=== PATIENT | female | born 1980 | race Caucasian/White ===

== ENCOUNTER 2019-01-25 10:16 | Emergency (ER) | payer OTHER, MEDICAID, SELFPAY ==
[2019-01-25 10:24] VITALS: BP 120/82; PULSE 77; RESP 18; TEMP 36.7; O2SAT 99; BMI 41.7
--- NOTE | 2019-01-25 11:05 | DI.US.S_ITS ---
PROCEDURE: US PELVIC COMPLETE INDICATIONS: RLQ PAIN, H/O CYSTS TECHNIQUE: Real-time scanning was performed of the pelvic organs, with image documentation. Additional endovaginal scanning was necessary due to incomplete visualization of the adnexal and endometrial structures by transabdominal scanning. COMPARISON: None. FINDINGS: Transabdominal scanning: Limited scanning through the kidneys shows no hydronephrosis. No pathologic free abdominal or pelvic fluid. Endovaginal scanning: Uterus: Uterus is normal in size at 13.0 x 4.5 x 5.6 cm. The endometrium measures 7 mm in combined thickness. Ovaries: The ovaries are obscured by shadowing bowel gas, despite multiple attempts and patient repositioning. No gross adnexal abnormality is seen. IMPRESSION: Ovaries not well visualized sonographically as detailed above. If clinically warranted, a repeat pelvic ultrasound could be obtained after extended (greater than 12 hours) n.p.o. interval. Or at clinical discretion, MRI could be considered. Dictated by: Dalton De León M.D. on 01/25/2019 at 11:55 Approved by: Dalton De León M.D. on 01/25/2019 at 11:57
[2019-01-25 11:28] LABS: Add Manual Diff / Slide Review NO; Basophils Absolute Auto 100 /uL (0-100); Basophils Percent Auto 1.1 % (0-2); Eosinophils Absolute Auto 200 /uL (0-450); Eosinophils Percent Auto 3.2 % (2-4); Hematocrit 39.5 % (36-46); Lymphocytes Absolute Auto 1900 /uL (1100-4500); Lymphocytes Percent Auto 27.7 % (25-40); Mean Corpuscular HGB Conc 35.4 % (30-36); Mean Corpuscular Hemoglobin 30.5 PG (26-34); Mean Corpuscular Volume 86.1 fL (80-100); Monocytes Absolute Auto 500 /uL (0-900); Monocytes Percent Auto 7.5 % (3-14); Neutrophils Absolute Auto 4200 /uL (1500-7000); Neutrophils Percent Auto 60.5 % (50-75); Platelet Count 220 X10^3/uL (150-400); Red Blood Cell Count 4.59 X10^6/uL (4.0-5.2); Red Cell Distribution Width 12.4 % (11.6-14.8); White Blood Cell Count 6.9 X10^3/uL (4.5-11.0)
[2019-01-25 11:40] LABS: Alanine Aminotransferase 26 IU/L (9-52); Albumin 4.4 g/dL (3.5-5.0); Albumin Globulin Ratio 1.5 (1.0-2.8); Alkaline Phosphatase 55 U/L (38-126); Aspartate Aminotransferase 23 IU/L (14-36); BUN Creatinine Ratio 13.8 (6-22); Bilirubin Total 0.2 mg/dL (0.2-1.3); Blood Urea Nitrogen 11 mg/dL (7-17); Calcium 9.6 mg/dL (8.4-10.2); Carbon Dioxide 26 mmol/L (22-32); Chloride 105 mmol/L (98-107); Estimated Glomerular Filt Rate > 60.0 mL/min (>60); Glucose 98 mg/dL (70-100); HEMOLYSIS < 15 (0-50); Potassium 4.1 mmol/L (3.4-5.1); Sodium 141 mmol/L (137-145); Total Protein 7.4 g/dL (6.3-8.2)
--- NOTE | 2019-01-25 11:46 | ED_ITS ---
HPI - Abdominal Pain General Chief Complaint: Abdominal Pain Stated Complaint: Lower Pelvic Pain Rt side Time Seen by Provider: 01/25/19 10:20 Source: patient Mode of arrival: ambulatory Limitations: no limitations History of Present Illness HPI narrative: 38-year-old female nonsmoker with history of ovarian cysts p resents to the emergency department for evaluation of sudden onset right lower quadrant. She states it has been rather consistent since its onset and is worse with motion and improves with rest. She denies any radiation of her pain or so she had symptoms such as fever, chills or nausea or. She has had a normal appetite and denies any vaginal bleeding or discharge. She denies dysuria, frequency or urgency. Her last menstrual cycle ended 4 days ago and was normal for her MD complaint: abdominal pain Onset (ago): hour(s) Pain Consistency: constant Location: RLQ Severity: moderate Quality: stabbing Radiation: none Migration to: no migration Relieving factors: rest Exacerbating factors: movement Associated symptoms: denies other symptoms Related Data Home Medications Medication Instructions Recorded Confirmed bismuth subsalicylate #0 12/07/17 [Pepto-Bismol Max St] Previous Rx's Medication Instructions Recorded ketorolac 10 mg PO Q6H PRN #14 tab 01/25/19 Allergies Allergy/AdvReac Type Severity Reaction Status Date / Time naproxen [From NAPROSYN] Allergy Severe anaphylactic Verified 01/25/19 10:28 - PT STATES MOTRIN IS OK olive oil [OLIVE OIL] Allergy Unknown Verified 01/25/19 10:28 Sulfa (Sulfonamide Allergy Unknown Verified 01/25/19 10:28 Antibiotics) [SULFA (SULFONAMIDE ANTIBIOTICS)] Review of Systems Constitutional Denies chills, Denies fever(s), Denies lethargy and Denies weakness Eyes Denies change in vision, Denies eye discharge, Denies irritation and Denies loss of vision ENT Ears, Nose, Mouth, and Throat: Denies change in voice, Denies neck pain and Denies sore throat Cardiovascular Denies chest pain, Denies irregular heart rhythm, Denies lightheadedness, Denies palpitations, Denies dyspnea, Denies dyspnea on exertion and Denies orthopnea Respiratory Denies cough, Denies dyspnea, Denies dyspnea on exertion and Denies wheezing Gastrointestinal Gastrointestinal: Denies abdominal pain, Denies change in bowel habits, Denies diarrhea, Denies nausea and Denies vomiting Genitourinary Denies hematuria, Reports pelvic pain, Denies flank pain, Denies urinary incontinence and Denies urinary urgency Musculoskeletal Denies neck pain Integumentary/Breasts Denies pruritus, Denies erythema, Denies rash and Denies wounds Neurologic Denies confusion, Denies loss of vision and Denies weakness Psychiatric Denies anxiety, Denies confusion, Denies depression, Denies homicidal ideation and Denies suicidal ideation Endocrine Denies palpitations Hematologic/Lymphatic Denies easy bruising Allergic/Immunologic Denies wheezing PFSH Social History Smoking Status: Current every day smoker Social History Smoking Status: Current every day smoker Exam Narrative Exam Narrative: GENERAL: 38-year-old female, appears a bit uncomfortable, rub keyur her right lower quadrant HEAD: Atraumatic. Normocephalic. No temporal or scalp tenderness. EYES: Pupils equal round and reactive. Extraocular motions intact. No scleral icterus. No injection or drainage. ENT: Nose without bleeding, purulent drainage or septal hematoma. Throat without erythema, tonsillar hypertrophy or exudate. Uvula midline. Airway patent. NECK: Trachea midline. No JVD or lymphadenopathy. Supple, nontender, no meningeal signs. CARDIOVASCULAR: Regular rate and rhythm without murmurs, gallops, or rubs. RESPIRATORY: Clear to auscultation. Breath sounds equal bilaterally. No wheezes, rales, or rhonchi. GASTROINTESTINAL: Abdomen soft, mild RLQ tenderness, nondistended. No hepato- splenomegaly, or palpable masses. No guarding. PELVIC: very minimal clearish yellow discharge from closed cervical os. No pain with cultures, no pain on bimanual. Performed with female nursing fire lieutenant at the bedside and patient's verbal permission EXTREMITIES: No clubbing, cyanosis, or edema. No joint tenderness, effusion, or edema noted. BACK: Nontender without deformity or crepitance. No flank tenderness. NEURO: AOx3. SKIN: No rash or erythema. Initial Vital Signs Initial Vital Signs: Vital Signs Temperature 98.0 F 01/25/19 10:24 Pulse Rate 77 01/25/19 10:24 Respiratory Rate 18 01/25/19 10:24 Blood Pressure 120/82 04/26/19 10:24 Pulse Oximetry 99 04/26/19 10:24 Course Orders Ordered: ED Orders 01/25/19 11:05 US pelvic complete Stat 01/25/19 11:18 CBC [Complete Blood Count AUTO DIFF] Stat CMP [Comprehensive Metabolic Panel] Stat 01/25/19 11:48 CT kidney ureter bladder (KUB) Stat Vital Signs - 8 hr 01/25/19 10:24 01/25/19 12:16 01/25/19 13:27 Temperature 98.0 F Pulse Rate 77 66 73 Respiratory Rate 18 18 18 Blood Pressure 120/82 Blood Pressure [Right Arm] 110/73 123/76 Pulse Oximetry 99 100 99 MDM - Abdominal Pain Differential Diagnosis Differential diagnosis: Likely abdominal pain, acute appendicitis, calculus of kidney and small bowel obstruction Medical Records Attestation: I reviewed the patient's medical records. Lab Data Attestation: I reviewed the patient's lab results. Result diagrams: 01/25/19 11:18 01/25/19 11:18 Lab Results 01/25/19 01/25/19 Range/Units 11:18 11:18 WBC 6.9 (4.5-11.0) X10^3/uL RBC 4.59 (4.0-5.2) X10^6/uL Hgb 14.0 (12.0-16.0) g/dL Hct 39.5 (36-46) % MCV 86.1 (80-100) fL MCH 30.5 (26-34) PG MCHC 35.4 (30-36) % RDW 12.4 (11.6-14.8) % Plt Count 220 (150-400) X10^3/uL Neut % (Auto) 60.5 (50-75) % Lymph % (Auto) 27.7 (25-40) % [place] % (Auto) 7.5 (3-14) % Eos % (Auto) 3.2 (2-4) % Baso % (Auto) 1.1 (0-2) % Neut # (Auto) 4200 (0052-3407) /uL Lymph # (Auto) 1900 (7130-5842) /uL [place] # (Auto) 500 (0-900) /uL Eos # (Auto) 200 (0-450) /uL Baso # (Auto) 100 (0-100) /uL Sodium 141 (137-145) mmol/L Potassium 4.1 (3.4-5.1) mmol/L Chloride 105 (98-107) mmol/L Carbon Dioxide 26 (22-32) mmol/L BUN 11 (7-17) mg/dL Creatinine 0.80 (0.52-1.04) mg/dL Estimated GFR > 60.0 (>60) mL/min BUN/Creatinine Ratio 13.8 (6-22) Glucose 98 (70-100) mg/dL Calcium 9.6 (8.4-10.2) mg/dL Total Bilirubin 0.2 (0.2-1.3) mg/dL AST 23 (14-36) IU/L ALT 26 (9-52) IU/L Alkaline Phosphatase 55 (38-126) U/L Total Protein 7.4 (6.3-8.2) g/dL Albumin 4.4 (3.5-5.0) g/dL Globulin 3.0 (1.7-4.1) g/dL Albumin/Globulin Ratio 1.5 (1.0-2.8) Point of care testing: Point of Care Testing Test Results Negative Urine Dip Bedside Urine Glucose Negative Bedside Urine Bilirubin - Negative Bedside Urine Ketone - Negative Urine Specific [place] 1.020 Bedside Urine Occult Blood - Negative Bedside Urine pH 6.5 Bedside Urine Protein - Negative Bedside Urine Urobilinogen - Negative Bedside Urine Nitrite - Negative Bedside Urine Leukocytes - Negative Esterase Imaging Data US - abdomen: Radiologist's impression: [address] [address] Ultrasound Report Signed Patient: Elva Mcdonald LMR#: [id number] : 1980Acct:[id number] Age/Sex: 38 / FDate of Service: 01/25/19 Loc: ED Accession Number: [id number] Procedure: US pelvic complete Ordering Provider: Ladarius Lu D.O. PROCEDURE: US PELVIC COMPLETE INDICATIONS: RLQ PAIN, H/O CYSTS TECHNIQUE: Real-time scanning was performed of the pelvic organs, with image documentation. Additional endovaginal scanning was necessary due to incomplete visualization of the adnexal and endometrial structures by transabdominal scanning. COMPARISON: None. FINDINGS: Transabdominal scanning: Limited scanning through the kidneys shows no hydronephrosis. No pathologic free abdominal or pelvic fluid. Endovaginal scanning: Uterus: Uterus is normal in size at 13.0 x 4.5 x 5.6 cm. The endometrium measures 7 mm in combined thickness. Ovaries: The ovaries are obscured by shadowing bowel gas, despite multiple attempts and patient repositioning. No gross adnexal abnormality is seen. IMPRESSION: Ovaries not well visualized sonographically as detailed above. If clinically warranted, a repeat pelvic ultrasound could be obtained after extended (greater than 12 hours) n.p.o. interval. Or at clinical discretion, MRI could be considered. Dictated by: Dalton De León M.D. on 01/25/2019 at 11:55 Approved by: Dalton De León M.D. on 01/25/2019 at 11:57 CT scan - abdomen: Radiologist's impression: [address] [address] [address] Scan Report Signed Patient: lEva Mcdonald LMR#: [id number] : 1980Acct:[id number] Age/Sex: 38 / FDate of Service: 01/25/19 Loc: ED Accession Number: [id number] Procedure: CT kidney ureter bladder (KUB) Ordering Provider: Ladarius Lu D.O. PROCEDURE: CT KIDNEY URETER BLADDER (KUB) INDICATIONS: severe RLQ pain, sudden onset TECHNIQUE: Noncontrast 5 mm thick sections acquired from the diaphragms to the symphysis. 5 mm thick coronal and sagittal reformats were then performed. For radiation dose reduction, the following was used: automated exposure control, adjustment of mA and/or kV according to patient size. COMPARISON: None. FINDINGS: Image quality: Excellent. Lung bases: Lung bases are clear. Heart size is normal. Urinary system: Both kidneys are normal in size. No kidney stones. No hydronephrosis or perinephric fat stranding. Both ureters appear non-dilated throughout their expected courses. Bladder wall thickness is normal; no calcified bladder stones. Other solid organs: Liver is normal in size there is fatty infiltration throughout the liver. Gallbladder appears normal. Pancreas is normal in contours. Spleen is normal in size. No adrenal nodules. Peritoneum and bowel: Unenhanced bowel loops demonstrate normal wall thickness and caliber. No free fluid or air. Nodes and vessels: No retroperitoneal or mesenteric adenopathy by size criteria. Aorta and inferior vena cava are normal in caliber. Abdominal wall: No ventral hernias. Pelvis: No free pelvic fluid. No inguinal hernias or adenopathy. A normal or abnormal appendix is not identified at the right lower quadrant but no secondary CT evidence of acute appendicitis is found. Bones: No suspicious bony lesions. No vertebral body compression fractures. IMPRESSION: Source of right lower quadrant pain is not identified. A normal or abnormal appendix is not found but there is no secondary CT evidence of acute appendicitis. No adnexal pathology seen, no urinary tract stones found. Fatty infiltration throughout the liver, no suspicion for acute cholecystitis by this CT. Dictated by: Epifanio Bennett M.D. on 01/25/2019 at 12:30 Approved by: Epifanio Bennett M.D. on 01/25/2019 at 12:31 [facility] Narrative Medical decision making narrative: Multiple etiologies for patient's symptoms considered including: [Right ovarian torsion versus appendicitis versus bowel obstruction versus kidney stone versus PID] Pain sudden in onset, without radiation, fever, N/V, or elevated WBCs and without findings on imaging to suspect appendicitis. PID considered, but very unremarkable pelvic exam. Kidney stone considered, but thought unlikely given no findings on CT or urine. Findings and discharge diagnosis discussed with patient/family followed by verbalization of understanding Return precautions discussed with patient/family whom verbalize understanding. Discharge Plan Departure Patient Disposition: Home Clinical Impression: Abdominal pain, acute, right lower quadrant Discharge Date/Time: 01/25/19 14:13 Instructions: DI for Pelvic Pain Activity Restrictions/Additional Instructions: *You have been diagnosed with [Right Pelvic pain, likely ovarian cyst, but appendicitis and other diagnoses were considered] *What to do: *Take medications as directed: Your prescription has been electronically transmitted to *Follow up with your primary care provider on February 04 as planned *Return to ER if you should have any new, worsening or concerning symptoms, such as [worsening pain, fever over 101 F, persistent vomiting, or other bothersome symptoms ] Prescriptions: New ketorolac 10 mg tablet 10 mg PO Q6H PRN (Reason: pain) Qty: 14 RF: 0 No Action bismuth subsalicylate [Pepto-Bismol Max St] 525 MG/15 ML suspension Qty: 0 RF: 0
[2019-01-25 12:16] VITALS: BP 110/73; PULSE 66; RESP 18; O2SAT 100
[2019-01-25 13:27] VITALS: BP 123/76; PULSE 73; RESP 18; O2SAT 99
--- NOTE | 2019-01-25 14:00 | PC.NURSE ---
Pelvic exam, cultures sent
== END 2019-01-25 14:13 | disposition home or self-care (01) ==
PROVIDERS: Emergency Provider Emergency Medicine
DX: R10.31 Right lower quadrant pain (principal)
CPT/HCPCS: 36415; 74176; 76830; 76856; 80053; 81003; 81025; 85025; 99283; 99284

== ENCOUNTER 2019-09-25 21:55 | Emergency (ER) | payer OTHER, MEDICAID, SELFPAY ==
[2019-09-25 22:01] VITALS: BP 118/75; PULSE 65; RESP 16; TEMP 36.6; O2SAT 97
--- NOTE | 2019-09-25 22:02 | DI.RAD.S_ITS ---
PROCEDURE: XR WRIST RT MIN 3V INDICATIONS: fall onto outstretched rt hand, wrist pain TECHNIQUE: 5 views of the wrist were acquired. COMPARISON: None. FINDINGS: Bones: No fractures or dislocations. No suspicious bony lesions. Scaphoid view: No trauma found. Soft tissues: No suspicious soft tissue calcifications. IMPRESSION: No trauma found. Dictated by: Epifanio Bennett M.D. on 09/26/2019 at 8:18 Approved by: Epifanio Bennett M.D. on 09/26/2019 at 8:19
--- NOTE | 2019-09-25 22:21 | ED_ITS ---
HPI - Extremity Injury (Upper) General Chief Complaint: Extremity Injury, Upper Stated Complaint: thinks she sprained her right wrist Time Seen by Provider: 09/25/19 22:15 Source: patient Mode of arrival: Ambulatory Limitations: no limitations History of Present Illness HPI narrative: 31-year-old female smoker noncontributory medical history presents with a chief complaint of a fall with pain in her right wrist. The patient works at a [employer] and states that she has had some pain in her right wrist for the past few weeks to months but states it became significantly worse after tonight's fall. The patient was exiting the shower and fell and then twisted her right wrist. The majority of her pain is on the volar surface of her distal wrist. Her pain is worse with motion and improves with rest. She denies any significant numbness, tingling or weakness. MD complaint: injury to: right Onset (ago): hour(s) Other Extremity Injury: Right: hand and wrist Other injuries: none Handedness: right Place: home Severity: moderate Relieving factors: immobilization and rest Exacerbating factors: movement of extremity Context: fall and direct blow Associated symptoms: denies other symptoms Treatments prior to arrival: cold therapy Related Data Home Medications Medication Instructions Recorded Confirmed bismuth subsalicylate #0 12/07/17 [Pepto-Bismol Max St] Previous Rx's Medication Instructions Recorded ketorolac 10 mg PO Q6H PRN #14 tab 01/25/19 Allergies Allergy/AdvReac Type Severity Reaction Status Date / Time naproxen [From NAPROSYN] Allergy Severe anaphylactic Verified 01/25/19 10:28 - PT STATES MOTRIN IS OK olive oil [OLIVE OIL] Allergy Unknown Verified 01/25/19 10:28 Sulfa (Sulfonamide Allergy Unknown Verified 01/25/19 10:28 Antibiotics) [SULFA (SULFONAMIDE ANTIBIOTICS)] Review of Systems Constitutional Constitutional: Denies chills, Denies fatigue, Denies fever(s), Denies frequent falls, Denies lethargy and Denies weakness Eyes Eyes: Denies change in vision, Denies eye discharge, Denies irritation and Denies loss of vision ENT Ears, Nose, Mouth, and Throat: Denies change in voice, Denies dizziness, Denies neck pain, Denies sore throat and Denies throat swelling Cardiovascular Cardiovascular: Denies chest pain, Denies irregular heart rhythm, Denies lightheadedness, Denies palpitations, Denies dyspnea, Denies dyspnea on exertion and Denies orthopnea Respiratory Respiratory: Denies cough, Denies dyspnea, Denies dyspnea on exertion and Denies wheezing Gastrointestinal Gastrointestinal: Denies abdominal pain, Denies change in bowel habits, Denies diarrhea, Denies nausea and Denies vomiting Genitourinary Genitourinary: Denies hematuria, Denies flank pain, Denies urinary incontinence and Denies urinary urgency Musculoskeletal Musculoskeletal: Denies back pain, Reports limited range of motion, Denies muscle weakness, Denies neck pain, Denies numbness and Denies tingling Integumentary/Breasts Skin/Breast: Denies pruritus, Denies erythema, Denies rash and Denies wounds Neurologic Neurologic: Denies behavioral changes, Denies confusion, Denies dizziness, Denies frequent falls, Denies loss of vision, Denies numbness, Denies tingling and Denies weakness Psychiatric Psychiatric: Denies anxiety, Denies behavioral changes, Denies confusion, Denies depression, Denies homicidal ideation and Denies suicidal ideation Endocrine Endocrine: Denies fatigue, Denies flushing and Denies palpitations Hematologic/Lymphatic Hematologic/Lymphatic: Denies easy bruising Allergic/Immunologic Allergic/Immunologic: Denies urticaria, Denies throat swelling and Denies wheezing Patient History Social History Smoking Status: Current every day smoker Smoking Status: Current every day smoker alcohol intake frequency: a few times a month Substance Use Type: does not use Exam Narrative Exam Narrative: GEN: AOx3 and in mild distress EYES: Pupils are equal, round, and reactive to light and accommodation. Extraoccular muscles are intact bilaterally. There is no subconjunctival hemorrhage or exudate. CHEST: Lungs are clear to auscultation bilaterally and free of wheezes, rales, or rhonchi. Heart rate is regular rhythm, there are no murmurs, clicks, rubs, or gallops. There is no chest wall tenderness. ABD: Abdomen is soft and nontender. There is no guarding or rebound. Bowel sounds are normal in all 4 quadrants. There is no mass or organomegaly. EXT: Full ROM of R wrist with some pain on dorsiflexion. No numbness or tingling. No pain in anatomic snuffbox or pain with axial loading of thumb. Reverse phalen's results in incrased pain in wrist but no numbness or tingling. SKIN: Warm, pink, and dry. No erythema or rash Initial Vital Signs Initial Vital Signs: Vital Signs Temperature 97.9 F 09/25/19 22:01 Pulse Rate 65 09/25/19 22:01 Respiratory Rate 16 09/25/19 22:01 Blood Pressure 118/75 09/25/19 22:01 Pulse Oximetry 97 09/25/19 22:01 Procedures Orthopedic Splinting/Casting Injury #1: Side: right Upper Extremity Immobilizer: thumb spica Post splinting neuro exam: intact Post splinting vascular exam: intact Placed by: Nursing Course Orders Ordered: ED Orders 09/25/19 22:02 XR wrist RT min 3V Stat Vital Signs Vital signs: Vital Signs - 8 hr 09/25/19 22:01 Temperature 97.9 F Pulse Rate 65 Respiratory Rate 16 Blood Pressure 118/75 Pulse Oximetry 97 MDM - Extremity Injury (Upper) Imaging Data Extremity x-ray #1: Attestation: I personally reviewed and interpreted this imaging study as follows: My Impression: R Wrist: No Fx Discharge Plan Departure Patient Disposition: Home Clinical Impression: Sprain and strain of wrist Discharge Date/Time: 09/25/19 22:40 Instructions: DI for Wrist Sprain Activity Restrictions/Additional Instructions: *You have been diagnosed with [acute right wrist sprain, possible early carpal tunnel syndrome as well] *What to do: *Take medications as directed *Follow up with your primary care provider in 2-3 days, call for an appointment. Let them know you were seen in the Emergency Department and that we ask that you be seen in follow up *Return to ER if you should have any new, worsening or concerning symptoms Radiographic study has been interpreted by an emergency physician. The official diagnosis by radiology will be performed within the next 24 hours and should there be any change in outcome we will notify you of how to proceed. Splint Care: Keep splint clean and dry. Elevated affected body part to decrease swelling. OK to use ice pack on the affected body part. Use for 15-20 minutes each time, for 5-6x per day. If you develop worsening pain, numbness, tingling, discoloration of the affected body part, loosen the splint by loosening the VIANY wrap, and either see your doctor for an urgent re-assessment, or return to the Emergency Department. Return to the Emergency Department for any new or worsening symptoms. Prescriptions: No Action bismuth subsalicylate [Pepto-Bismol Max St] 525 MG/15 ML suspension Qty: 0 RF: 0 ketorolac 10 mg tablet 10 mg PO Q6H PRN (Reason: pain) Qty: 14 RF: 0
== END 2019-09-25 22:40 | disposition home or self-care (01) ==
PROVIDERS: Emergency Provider Emergency Medicine
DX: J10.1 Influenza due to other identified influenza virus with other respiratory manifestations (principal)
CPT/HCPCS: 73110; 99282; 99283

== ENCOUNTER 2019-11-18 16:05 | Emergency (ER) | payer OTHER, MEDICAID, SELFPAY ==
[2019-11-18 16:24] VITALS: BP 123/65; PULSE 75; RESP 16; TEMP 36.4; O2SAT 100; BMI 36.7
--- NOTE | 2019-11-18 20:06 | ED.UPPEXIN ---
HPI - Extremity Injury (Upper) General Chief Complaint: Extremity Injury, Upper Stated Complaint: RIGHT ARM AND WRIST SHOOTING PAIN NUMB FINGERS History of Present Illness HPI narrative: This patient left without treatment. She was not evaluated, interviewed or examined. She left before without treatment. Related Data Home Medications Medication Instructions Recorded Confirmed albuterol sulfate [ProAir HFA] 2 puff INHALATION Q4H PRN 11/18/19 11/18/19 fluoxetine 10 mg PO DAILY 11/18/19 11/18/19 Allergies Allergy/AdvReac Type Severity Reaction Status Date / Time naproxen [From NAPROSYN] Allergy Severe anaphylactic Verified 11/18/19 16:31 - PT STATES MOTRIN IS OK olive oil [OLIVE OIL] Allergy Unknown Verified 11/18/19 16:31 Sulfa (Sulfonamide Allergy Unknown Verified 11/18/19 16:31 Antibiotics) [SULFA (SULFONAMIDE ANTIBIOTICS)] Patient History Social History Smoking Status: Current every day smoker Smoking Status: Current every day smoker alcohol intake frequency: a few times a month Substance Use Type: does not use Exam Initial Vital Signs Initial Vital Signs: Vital Signs Temperature 97.6 F 11/18/19 16:24 Pulse Rate 75 11/18/19 16:24 Respiratory Rate 16 11/18/19 16:24 Blood Pressure 123/65 11/18/19 16:24 Pulse Oximetry 100 11/18/19 16:24 Course Vital Signs Vital signs: Vital Signs - 8 hr 11/18/19 16:24 Temperature 97.6 F Pulse Rate 75 Respiratory Rate 16 Blood Pressure 123/65 Pulse Oximetry 100 Discharge Plan Departure Patient Disposition: Left Without Being Seen Clinical Impression: Patient left without being seen Discharge Date/Time: 11/18/19 16:53
== END 2019-11-18 16:53 | disposition left against medical advice (07) ==
PROVIDERS: Emergency Provider Emergency Medicine; PCP Family Medicine
CPT/HCPCS: 99281

== ENCOUNTER 2019-12-17 21:57 | Emergency (ER) | payer OTHER, MEDICAID, SELFPAY ==
[2019-12-17 22:05] VITALS: BMI 42.9
[2019-12-17 22:09] VITALS: BP 143/76; PULSE 65; RESP 14; TEMP 37.1; O2SAT 98
--- NOTE | 2019-12-17 23:20 | ED.DENTAL ---
HPI - Dental/Oral General Chief complaint: Dental/Oral Stated complaint: wisdom tooth pain Time Seen by Provider: 12/17/19 23:20 Source: patient Mode of arrival: Ambulatory Limitations: no limitations History of Present Illness HPI Narrative: This is a 39-year-old female comes to the emergency department with complaint of wisdom tooth pain. Patient states on the right side upper and lower. She saw a dentist today who told her she needed to have all 4 of her wisdom teeth removed. She states she was referred to someone in [place] because no one on the [place] can do with this surgery because she is over 21. Patient states she has not had fevers. She has had some mild swelling for right cheek. She has not had any purulence discharge. She has not had any swelling of her oropharynx. She states that her cheek has not been red. She states she has tried Tylenol, ibuprofen, clove oil, and Vicodin without improvement. Patient states that they did not tell her that they noted any infection. Related Data Home Medications Medication Instructions Recorded Confirmed albuterol sulfate [ProAir HFA] 2 puff INHALATION Q4H PRN 11/18/19 11/18/19 fluoxetine 10 mg PO DAILY 11/18/19 11/18/19 Previous Rx's Medication Instructions Recorded oxycodone-acetaminophen [Percocet] 1 tab PO Q6H PRN #10 tab 12/17/19 Allergies Allergy/AdvReac Type Severity Reaction Status Date / Time naproxen [From NAPROSYN] Allergy Severe anaphylactic Verified 11/18/19 16:31 - PT STATES MOTRIN IS OK olive oil [OLIVE OIL] Allergy Unknown Verified 11/18/19 16:31 Sulfa (Sulfonamide Allergy Unknown Verified 11/18/19 16:31 Antibiotics) [SULFA (SULFONAMIDE ANTIBIOTICS)] Review of Systems Review of Systems ROS Unobtainable: All systems reviewed & are unremarkable except as noted in HPI and below Patient History Social History Smoking Status: Current every day smoker Smoking Status: Current every day smoker alcohol intake frequency: a few times a month Substance Use Type: does not use Exam Narrative Exam Narrative: GEN: well nourished, well appearing obese female, alert and oriented x 3, patient appears to be in moderate distress. She is standing and pacing around the room. HEENT: Atraumatic, pupils are equal round reactive to light, extraocular movements are intact, nares are clear, TMs are clear with no fluid, there is no conjunctival pallor. Throat is clear without any exudates, erythema, tonsillar enlargement or uvular deviation, patient appears to have normal dentition. No swelling appreciated of the right or left cheek. No erythema. HEART: Regular rate and rhythm without murmur, clicks, rubs. LUNGS:Lungs clear to auscultation, no wheezes, rales, crackles, chest moves symmetrically ABD:bowel sounds normal, soft, non-tender, no guarding, rebound, rigidity, no masses noted, no hepatosplenomegaly MSCL: Non-tender, no muscle atrophy, muscles strength 5/5 upper and lower extremities, full range of motion, normal gait NEURO:CN 2-12 intact, sensation normal SKIN: No rash, erythema or skin changes. Initial Vital Signs Initial Vital Signs: Vital Signs Temperature 98.7 F 12/17/19 22:09 Pulse Rate 65 12/17/19 22:09 Respiratory Rate 14 12/17/19 22:09 Blood Pressure 143/76 H 12/17/19 22:09 Pulse Oximetry 98 12/17/19 22:09 Course Orders Ordered: Discontinued Medications Ketorolac Tromethamine (Toradol) 30 mg IM NOW ONE Stop: 12/17/19 23:47 Last Admin: 12/17/19 23:52 Dose: 30 mg Documented by: STEFFI Oxycodone/Acetaminophen (Endocet 5/325 Prepack) 1 bottle MISC SEEINSTR ONE Stop: 12/17/19 23:46 Last Admin: 12/17/19 23:52 Dose: 1 bottle Documented by: STEFFI Vital Signs Vital signs: Vital Signs - 8 hr 12/17/19 22:09 Temperature 98.7 F Pulse Rate 65 Respiratory Rate 14 Blood Pressure [Left Arm] 143/76 H Pulse Oximetry 98 MDM - Dental/Oral MDM Narrative Medical decision making narrative: Patient comes to the emergency department states she had ibuprofen earlier. She has an anaphylaxis naproxen but takes ibuprofen without issue was given Toradol. Given referral for Dr. Oro who is [facility] may be a more local option available to her. Discharge Plan Departure Patient Disposition: Home Clinical Impression: Pain, dental Discharge Date/Time: 12/18/19 00:09 Instructions: DI for Dental Pain Activity Restrictions/Additional Instructions: Follow-up with the dental resources provided, you may also contact Dr. Oro to inquire if they are an option. Take medication as prescribed, this medication can make you sleepy do not drive, perform hazardous activities or make any major decisions while taking this medication. Prescription was sent to [facility] in [place]. You may continue take ibuprofen up to 800 mg every 8 hours with this medication. Return for fevers greater 100.4 F, worsening swelling, purulent discharge swelling of your throat, lips or tongue, redness or swelling of the face or other new or concerning symptoms. Prescriptions: New oxycodone-acetaminophen [Percocet] 5-325 mg tablet 1 tab PO Q6H PRN (Reason: pain) Qty: 10 RF: 0 No Action fluoxetine 10 mg capsule 10 mg PO DAILY RF: 0 albuterol sulfate [ProAir HFA] 90 mcg/actuation HFA aerosol inhaler 2 puff inhalation Q4H PRN (Reason: Shortness Of Breath Or Wheezing) RF: 0 Referrals: Dwayne Oro DMD [Physician] - Karolyn Monique [Primary Care Provider] -
[2019-12-17] MEDS: KETOROLAC 60 MG/2 ML VIAL 30 MG IM (23:52)
[2019-12-17] MEDS: OXYCODONE/APAP 5/325 PREPACK 1 BOTTLE MISC (23:52)
== END 2019-12-18 00:09 | disposition home or self-care (01) ==
PROVIDERS: Emergency Provider Emergency Medicine; PCP Family Medicine
DX: K08.89 Other specified disorders of teeth and supporting structures (principal)
CPT/HCPCS: 96372; 99283; J1885

== ENCOUNTER 2019-12-19 23:23 | Emergency (ER) | payer OTHER, MEDICAID, SELFPAY ==
[2019-12-19 23:31] VITALS: BP 136/93; PULSE 77; RESP 16; TEMP 36.4; O2SAT 98; BMI 42.9
[2019-12-20] MEDS: KETOROLAC 60 MG/2 ML VIAL 30 MG IV (00:11)
[2019-12-20] MEDS: AMPICILLIN/SULBACTAM 3 GM 3 GM in SODIUM CHLORIDE 0.9% 100 ML IV (00:13)
[2019-12-20] MEDS: methylPREDNISolone 125 MG/2 ML VIAL IV (00:13)
--- NOTE | 2019-12-20 00:20 | DI.CT.S_ITS ---
PROCEDURE: CT FACIAL BONES W CON INDICATIONS: infected lower mandible with right facial swelling TECHNIQUE: After the administration of intravenous contrast, 2.5 mm axial sections acquired from the mid-neck to the frontal sinuses, with coronal and sagittal reformats. For radiation dose reduction, the following was used: automated exposure control, adjustment of mA and/or kV according to patient size. COMPARISON: None. FINDINGS: Image quality: Excellent. Soft tissues: Mild inflammatory change in the right facial subcutaneous fat without abscess formation. No edema, masses, or fluid collections. Reactive adenopathy, right submandibular and anterior cervical region. Reactive adenopathy on the left, to a lesser extent. Vascular: Visualized vascular structures appear patent throughout. Bony vascular foramina and canals appear normal. Bones: Recent resection of posterior right upper molar. No evidence of adjacent osteomyelitis. No adjacent abscess. Facial bones appear intact, without fractures, erosions, or destruction. Visualized portions of the skull base and auditory canals also appear normal. Sinuses: Paranasal sinuses are aerated without fluid levels, mucosal thickening, or mucoceles. Mastoid air cells are aerated. IMPRESSION: 1. Mild inflammatory change in the right face subcutaneous tissues may indicate mild cellulitic change. No abscess cavity. Comment: Final report is concordant with preliminary interpretation provided by [facility]. Dictated by: Jose Martin Sinclair M.D. on 12/20/2019 at 7:40 Approved by: Jose Martin Sinclair M.D. on 12/20/2019 at 7:44
--- NOTE | 2019-12-20 00:54 | PC.NURSE ---
PT states right sided face swelling since last night and pain getting worse. Had oral surgery yesterday with top 2 wisdom teeth removed, has infection in left lower mouth. Was started on Clindamycin. Pt able to speak in full sentances with airway intact.
--- NOTE | 2019-12-20 01:28 | ED.DENTAL ---
HPI - Dental/Oral General Chief complaint: Dental/Oral Stated complaint: SWOLLEN LEFT CHEEK Time Seen by Provider: 12/19/19 23:40 Source: patient Mode of arrival: Family Vehicle Limitations: no limitations History of Present Illness HPI Narrative: The patient is a 39-year-old female who states that yesterday she had to wisdom teeth removed. Last night she developed severe pain and discomfort took 2 doses of her clindamycin. She had increased pain and woke up at 3:30 a.m. with her face swollen on the right side. Today the patient came into the emergency department and stated that her right face was even more swollen despite taking the antibiotics. She denied any headache but she had pressure behind her right eye and discomfort in her right cheek. She denied any fever chills or sweats as well as any change in vision loss of vision or diplopia. She had no cough shortness of breath or chest pain. She had no nausea vomiting diarrhea change in bowel habits dysuria. She denies a history of diabetes mellitus hypertension and asthma. She does smoke cigarettes but does not drink alcohol. She has denies being stating her last menstrual period was 2 and half weeks ago. Related Data Home Medications Medication Instructions Recorded Confirmed albuterol sulfate [ProAir HFA] 2 puff INHALATION Q4H PRN 11/18/19 11/18/19 fluoxetine 10 mg PO DAILY 11/18/19 11/18/19 Previous Rx's Medication Instructions Recorded oxycodone-acetaminophen [Percocet] 1 tab PO Q6H PRN #10 tab 12/17/19 amoxicillin-pot clavulanate 1 tab PO Q12H #14 tab 12/20/19 [Augmentin] prednisone 40 mg PO DAILY #8 tab 12/20/19 tramadol 50 mg PO Q6H PRN #12 tab 12/20/19 Allergies Allergy/AdvReac Type Severity Reaction Status Date / Time naproxen [From NAPROSYN] Allergy Severe anaphylactic Verified 11/18/19 16:31 - PT STATES MOTRIN IS OK olive oil [OLIVE OIL] Allergy Unknown Verified 11/18/19 16:31 Sulfa (Sulfonamide Allergy Unknown Verified 11/18/19 16:31 Antibiotics) [SULFA (SULFONAMIDE ANTIBIOTICS)] Review of Systems Review of Systems Narrative: All review of systems were negative except for those mentioned in the history of present illness. Patient History Social History Smoking Status: Current every day smoker Smoking Status: Current every day smoker alcohol intake frequency: a few times a month Substance Use Type: does not use Exam Narrative Exam Narrative: PHYSICAL EXAM: CONSTITUTIONAL: Awake, Alert, Oriented, Coherent, Cooperative in NAD. Does not appear toxic or ill. HEAD: AT/NC, the right lateral face over her maxilla is diffusely tender and swollen. There is no mass or fluctuance appreciated. It appears that her face is just tremendously swollen. You EENT: PERRL, FROM of eyes, no discharge, no nystagmus No epistaxis or nasal drainage The patient has difficulty in opening her mouth. You can see a suture in the right upper posterior molar. Her mucosa is moist and pink there is no erythema or exudate in the posterior pharynx. NECK: Supple, no obvious JVD, Trachea is midline without stridor, no palpable LN . SPINE: No gross deformity, no palpable tenderness of the cervical, thoracic, lumbar or sacral spine. THORAX: No deformity, retractions, chest wall tenderness, subcutaneous air or crepitice. LUNGS: Clear with symmetrical breath sounds without respiratory distress HEART: Normal heart tones, regular rhythm and rate without murmur. ABDOMEN: Soft, non-tender, normal bowel sounds without guarding, rebound, rigidity or palpable mass EXTREMITIES: No edema, cyanosis, deformity or tenderness. SKIN: No rash petechia purpura bruising noted. NEURO: Awake, alert, oriented, conversive, cranial nerves II-XII are symmetrical and normal, moves all 4 extremities and is ambulatory Initial Vital Signs Initial Vital Signs: Vital Signs Temperature 97.6 F 12/19/19 23:31 Pulse Rate 77 12/19/19 23:31 Respiratory Rate 16 12/19/19 23:31 Blood Pressure 136/93 H 12/19/19 23:31 Pulse Oximetry 98 12/19/19 23:31 Course Course Course Narrative: 0120:CT of the patient's face remains pending. 0144: CT scan of the patient's face with contrast reveals subcutaneous stranding and inflammation involving the right aspect of the face without any evidence of an abscess. The patient will be discharged home placed on Augmentin 875 b.i.d. for 7 days and prednisone 40 mg per day for the next 3 days. She will be administered tramadol 50 mg Q 6 hours p.r.n. for severe pain and discomfort 12. Orders Ordered: ED Orders 12/20/19 00:20 CT facial bones w con Stat Discontinued Medications Ampicillin Sodium/Sulbactam (Sodium 3 gm/ Sodium Chloride) 100 mls @ 100 mls/hr IV NOW ONE Stop: 12/19/19 23:44 Last Infusion: 12/20/19 01:10 Dose: 0 mls/hr Documented by: Admin: 12/20/19 00:13 Dose: 100 mls/hr Documented by: LILLIAN Ketorolac Tromethamine (Toradol) 30 mg IV NOW ONE Stop: 12/20/19 00:00 Last Admin: 12/20/19 00:11 Dose: 30 mg Documented by: LILLIAN Methylprednisolone (Solu-Medrol 125 Mg Vial) 125 mg IV NOW ONE Stop: 12/19/19 23:55 Last Admin: 12/20/19 00:13 Dose: 125 mg Documented by: LILLIAN Vital Signs Vital signs: Vital Signs - 8 hr 12/19/19 23:31 12/20/19 01:29 Temperature 97.6 F 97.6 F Pulse Rate 77 72 Respiratory Rate 16 20 Blood Pressure 136/93 H Blood Pressure [Left Arm] 120/68 Pulse Oximetry 98 98 MDM - Dental/Oral Medical Records Attestation: I reviewed the patient's medical records. Lab Data Attestation: I reviewed the patient's lab results. Lab results narrative: No labs. Discharge Plan Departure Patient Disposition: Home Clinical Impression: Left facial swelling, Acute facial pain Discharge Date/Time: 12/20/19 01:53 Instructions: DI on Tooth Extraction, DI for Dental Pain Activity Restrictions/Additional Instructions: 1. Stop your clindamycin at this time and switch to Augmentin 875 mg twice a day. 2. Take the prednisone 40 mg per day for the next 4 days. 3. Continue to use your ibuprofen 600 mg every 6 hours for pain and discomfort. 4. For severe rescue pain use tramadol 50 mg every 6 hours for severe pain unrelieved by the other medications number 12 5. Follow-up with your dentist for re-evaluation in 48-72 hours. Prescriptions: New amoxicillin-pot clavulanate [Augmentin] 875-125 mg tablet 1 tab PO Q12H Qty: 14 RF: 0 prednisone 20 mg tablet 40 mg PO DAILY Qty: 8 RF: 0 tramadol 50 mg tablet 50 mg PO Q6H PRN (Reason: pain) Qty: 12 RF: 0 No Action fluoxetine 10 mg capsule 10 mg PO DAILY RF: 0 albuterol sulfate [ProAir HFA] 90 mcg/actuation HFA aerosol inhaler 2 puff inhalation Q4H PRN (Reason: Shortness Of Breath Or Wheezing) RF: 0 oxycodone-acetaminophen [Percocet] 5-325 mg tablet 1 tab PO Q6H PRN (Reason: pain) Qty: 10 RF: 0 Referrals: Karolyn Monique [Primary Care Provider] - ED Sign-out Cosign ED Attending Michael Attestation: I was immediately available in the department for consultation. This documentation has been reviewed and I agree with assessment and plan. Supervised by Tawanda Riggs MD
[2019-12-20 01:29] VITALS: BP 120/68; PULSE 72; RESP 20; TEMP 36.4; O2SAT 98
== END 2019-12-20 01:53 | disposition home or self-care (01) ==
PROVIDERS: Emergency Provider Emergency Medicine; PCP Family Medicine
DX: R22.0 Localized swelling, mass and lump, head (principal); R51 Headache; K08.89 Other specified disorders of teeth and supporting structures
CPT/HCPCS: 70487; 96365; 96375; 99284; J0295; J1885; J2930; Q9967

== ENCOUNTER 2021-04-02 21:25 | Emergency (ER) | payer OTHER, MEDICAID, SELFPAY ==
[2021-04-02 21:39] VITALS: BP 126/79; PULSE 81; RESP 16; TEMP 36.6; O2SAT 98; BMI 44.9
--- NOTE | 2021-04-02 22:44 | ED.EYEPROB ---
HPI - Eye Problem General Chief complaint: Eye Problems Stated complaint: visual changes Time Seen by Provider: 04/02/21 22:39 History of Present Illness HPI Narrative: 40-year-old female daily smoker with history of asthma presents with a week or so of dry itchy eyes with some watering and redness but complains that over the past day or to her eyes have become crusted shut in the morning and there appears to be in drainage. It happens in both eyes but right is worse than left. She has some visual change as she feels like she is looking through a film. She denies any pain, runny nose, sore throat or cough. She is otherwise well and free of complaint she does not were contacts Related Data Home Medications Medication Instructions Recorded Confirmed albuterol sulfate 90 mcg/actuation 2 puff INHALATION Q4H PRN 11/18/19 11/18/19 aerosol inhaler (ProAir HFA) fluoxetine 10 mg capsule 10 mg PO DAILY 11/18/19 11/18/19 Previous Rx's Medication Instructions Recorded oxycodone-acetaminophen 5 mg-325 1 tab PO Q6H PRN #10 tab 12/17/19 mg tablet (Percocet) amoxicillin 875 mg-potassium 1 tab PO Q12H #14 tab 12/20/19 clavulanate 125 mg tablet (Augmentin) prednisone 20 mg tablet 40 mg PO DAILY #8 tab 12/20/19 tramadol 50 mg tablet 50 mg PO Q6H PRN #12 tab 12/20/19 polymyxin B sulfate 10,000 1 drp EYE-BOTH Q3H #10 ml 04/02/21 unit-trimethoprim 1 mg/mL eye drops Allergies Allergy/AdvReac Type Severity Reaction Status Date / Time naproxen [From NAPROSYN] Allergy Severe anaphylactic Verified 11/18/19 16:31 - PT STATES MOTRIN IS OK olive oil [OLIVE OIL] Allergy Unknown Verified 11/18/19 16:31 Sulfa (Sulfonamide Allergy Unknown Verified 11/18/19 16:31 Antibiotics) [SULFA (SULFONAMIDE ANTIBIOTICS)] Review of Systems Review of Systems Narrative: GENERAL: Denies chills, fatigue, malaise, fever, sweats. HEENT: see HPI RESPIRATORY: Denies dyspnea, cough, wheezing, hemoptysis, sputum. CARDIOVASCULAR: Denies chest pain, palpitations, orthopnea, edema, GASTROINTESTINAL: Denies nausea, vomiting, abdominal pain, diarrhea, constipation, melena. : Denies dysuria, frequency, incontinence, hematuria, urinary retention. MUSCULOSKELETAL: denies weakness, joint pain, or bony pain SKIN: Denies rash, skin lesions, or other NEUROLOGIC: Denies weakness, headache, numbness, change in speech, confusion, seizures, incoordination. PSYCHIATRIC: No concerning psychosocial issues. 12 point review of systems is negative except for those stated above Patient History Social History Smoking Status: Current every day smoker Smoking Status: Current every day smoker alcohol intake frequency: a few times a month Substance Use Type: does not use Exam Narrative Exam Narrative: GEN: AOx3 and in mild distress EYES: Pupils are equal, round, and reactive to light and accommodation. Extraoccular muscles are intact bilaterally. Minimal injection in right greater than left, subtle hint of exudate CHEST: Lungs are clear to auscultation bilaterally and free of wheezes, rales, or rhonchi. Heart rate is regular rhythm, there are no murmurs, clicks, rubs, or gallops. There is no chest wall tenderness. ABD: Abdomen is soft and nontender. There is no guarding or rebound. Bowel sounds are normal in all 4 quadrants. There is no mass or organomegaly. EXT: Full painless ROM of all extremities with no loss of sensation or strength. SKIN: Warm, pink, and dry. No erythema or rash Initial Vital Signs Initial Vital Signs: Vital Signs Temperature 97.8 F 04/02/21 21:39 Pulse Rate 81 04/02/21 21:39 Respiratory Rate 16 04/02/21 21:39 Blood Pressure 126/79 04/02/21 21:39 Pulse Oximetry 98 04/02/21 21:39 Course Orders Ordered: Discontinued Medications Ofloxacin (Ofloxacin 0.3% Ophth 5 Ml) 1 drops EYE-BOTH NOW ONE Stop: 04/02/21 22:45 Last Admin: 04/02/21 23:56 Dose: Not Given Documented by: ALONDRA Vital Signs Vital signs: Vital Signs - 8 hr 04/02/21 21:39 04/02/21 23:02 Temperature 97.8 F Pulse Rate 81 77 Respiratory Rate 16 16 Blood Pressure 126/79 160/59 H Pulse Oximetry 98 99 MDM - Eye Problem MDM Narrative Medical decision making narrative: Elements of her description would suggest that this is in allergic conjunctivitis, however given duration and worsening symptoms with redness and matting we discussed the use of antibiotics and sure the opinion that the risks of doing so out way the benefits. She has been given return precautions and is had questions answered to her apparent satisfaction Discharge Plan Departure Patient Disposition: Home Clinical Impression: Conjunctivitis Qualifiers: Conjunctivitis type: acute Acute conjunctivitis type: unspecified Laterality: bilateral Qualified Code(s): H10.33 - Unspecified acute conjunctivitis, bilateral Instructions: DI for Conjunctivitis Activity Restrictions/Additional Instructions: *You have been diagnosed with [bilateral conjunctivitis] *What to do: *Please continue to take your regular medications as directed. [ ] New medication given as a prepack. Please use 2 drops in each eye every 4 hours awake until better *Please follow up with your primary care provider in 2-3 days, call for an appointment. Let them know you were seen in the Emergency Department and that we ask that you be seen in follow up. We will electronically transmit a record of today's note if your PCP is in our system *If you do not have a primary care provider please contact the [facility] Resource line at [phone]. They will ask some questions about your medical history and help get you set up with a doctor in the community. *Return to Emergency Department if you should have any new, worsening or concerning symptoms, such as [fever greater than 101 F, shaking chills, worsening pain, persistent vomiting or other bothersome symptoms] Prescriptions: New polymyxin B sulf-trimethoprim 10,000 unit- 1 mg/mL drops 1 drp EYE-BOTH Q3H Qty: 10 RF: 0 No Action fluoxetine 10 mg capsule 10 mg PO DAILY RF: 0 albuterol sulfate [ProAir HFA] 90 mcg/actuation HFA aerosol inhaler 2 puff inhalation Q4H PRN (Reason: Shortness Of Breath Or Wheezing) RF: 0 oxycodone-acetaminophen [Percocet] 5-325 mg tablet 1 tab PO Q6H PRN (Reason: pain) Qty: 10 RF: 0 amoxicillin-pot clavulanate [Augmentin] 875-125 mg tablet 1 tab PO Q12H Qty: 14 RF: 0 prednisone 20 mg tablet 40 mg PO DAILY Qty: 8 RF: 0 tramadol 50 mg tablet 50 mg PO Q6H PRN (Reason: pain) Qty: 12 RF: 0 Referrals: Karolyn Monique MD [Primary Care Provider] -
[2021-04-02 23:02] VITALS: BP 160/59; PULSE 77; RESP 16; O2SAT 99
== END 2021-04-02 23:57 | disposition home or self-care (01) ==
PROVIDERS: Emergency Provider Emergency Medicine; PCP Family Medicine
DX: H10.33 Unspecified acute conjunctivitis, bilateral (principal)
CPT/HCPCS: 99282

== ENCOUNTER 2021-06-13 16:16 | Emergency (ER) | payer OTHER, MEDICAID, SELFPAY ==
[2021-06-13 16:34] VITALS: BP 110/82; PULSE 74; RESP 18; TEMP 36.3; O2SAT 99; BMI 42.9
[2021-06-13 17:09] LABS: COVID19 -Nasal RAPID Negative (Negative)
--- NOTE | 2021-06-13 17:46 | DI.RAD.S_ITS ---
PROCEDURE: XR CHEST 1V INDICATIONS: cough x3 weeks TECHNIQUE: One view of the chest was acquired. COMPARISON: [facility], CT, CT ABDOMEN PELVIS WITH CONTRAST, 02/07/2019, 13:23. [facility], CR, CHEST 1 VIEW, 10/30/2017, 13:49. [facility], , CHEST 2 VIEW, 07/10/2017, 15:38. FINDINGS: Surgical changes and devices: None. Lungs and pleura: Lungs are clear. No pleural effusions or pneumothorax. Mediastinum: Mediastinal contours appear normal. Heart size is at the upper limits of normal. Bones and chest wall: No suspicious bony lesions. Overlying soft tissues appear unremarkable. IMPRESSION: No acute cardiopulmonary abnormality identified. Dictated by: Tye Moya M.D. on 06/13/2021 at 17:16 Approved by: Tye Moya M.D. on 06/13/2021 at 17:17
[2021-06-13 18:33] VITALS: BP 118/59; PULSE 73; O2SAT 98
--- NOTE | 2021-06-13 20:25 | ED_ITS ---
HPI - URI/Sore Throat <Sherrill Gaspar, [facility] - Last Filed: 06/13/21 20:36> General Chief Complaint: Upper Respiratory Symptoms Stated Complaint: COUGH CONGESTION Time Seen by Provider: 06/13/21 17:25 Source: patient Mode of arrival: Family Vehicle Limitations: no limitations History of Present Illness HPI Narrative: Elva is a 40-year-old female who presents to the ED for congestion, productive cough, and postnasal drip that had been present since May 25. She was concerned about COVID and requesting testing. She denies having any fever, nausea or vomiting, shortness of breath, wheezing, chest pain, sinus pain, or difficulty breathing. She reports that she had an allergic reaction to Mucinex about a week ago. She is currently taking Claritin and Flonase for allergic rhinitis. She denies any change to her p.o. intake or output. Related Data Home Medications Medication Instructions Recorded Confirmed albuterol sulfate 90 mcg/actuation 2 puff INHALATION Q4H PRN 11/18/19 11/18/19 aerosol inhaler (ProAir HFA) fluoxetine 10 mg capsule 10 mg PO DAILY 11/18/19 11/18/19 Previous Rx's Medication Instructions Recorded oxycodone-acetaminophen 5 mg-325 1 tab PO Q6H PRN #10 tab 12/17/19 mg tablet (Percocet) amoxicillin 875 mg-potassium 1 tab PO Q12H #14 tab 12/20/19 clavulanate 125 mg tablet (Augmentin) prednisone 20 mg tablet 40 mg PO DAILY #8 tab 12/20/19 tramadol 50 mg tablet 50 mg PO Q6H PRN #12 tab 12/20/19 polymyxin B sulfate 10,000 1 drp EYE-BOTH Q3H #10 ml 04/02/21 unit-trimethoprim 1 mg/mL eye drops methylprednisolone 4 mg tablets in See Rx Instructions .ROUTE 06/13/21 a dose pack .COMPLEX #21 ea Allergies Allergy/AdvReac Type Severity Reaction Status Date / Time naproxen [From NAPROSYN] Allergy Severe anaphylactic Verified 06/13/21 16:34 - PT STATES MOTRIN IS OK olive oil [OLIVE OIL] Allergy Unknown Verified 06/13/21 16:34 Sulfa (Sulfonamide Allergy Unknown Verified 06/13/21 16:34 Antibiotics) [SULFA (SULFONAMIDE ANTIBIOTICS)] Review of Systems <KENYATTA Price - Last Filed: 06/13/21 20:36> Review of Systems Narrative: General: denies fever, chills Head/Neck: denies headache, neck pain, + runny nose Eyes: denies visual changes, eye pain Cardio: denies chest pain, palpitations Respiratory: denies shortness of breath, endorses having a cough GI: denies abdominal pain, nausea, vomiting, or diarrhea : denies dysuria, hematuria MSK: denies joint pain, muscle weakness Skin: denies rash, itching Neuro: denies numbness, tingling Patient History <KENYATTA Price - Last Filed: 06/13/21 20:36> Social History (Updated 06/13/21 @ 20:29 by KENYATTA Price) Smoking Status: Current every day smoker Smoking Status: Current every day smoker tobacco type: cigarettes alcohol intake frequency: a few times a month Substance Use Type: does not use Exam <KENYATTA Price - Last Filed: 06/13/21 20:36> Narrative Exam Narrative: Independently reviewed vitals signs and nursing notes. General: Awake, alert, nontoxic, no cardiorespiratory distress Head/Neck: Atraumatic, neck full range of motion Eyes: EOMI, conjunctiva normal Nose: nares patent, + rhinorrhea Mouth/Throat: moist mucus membranes, posterior pharynx normal, no oral lesions Cardio: Regular rate and rhythm, no peripheral edema Respiratory: Breath sounds are clear and unlabored without wheezing, stridor, or rales. No retractions. GI: Abdomen soft, nontender MSK: Moves all extremities, neurovascularly intact Skin: Normal capillary refill, no rash Neuro: Normal speech and cognition, normal gait Initial Vital Signs Initial Vital Signs: Vital Signs Temperature 97.4 F L 06/13/21 16:34 Pulse Rate 74 06/13/21 16:34 Respiratory Rate 18 06/13/21 16:34 Blood Pressure 110/82 06/13/21 16:34 Pulse Oximetry 99 06/13/21 16:34 <Abraham Lomas DO - Last Filed: 06/16/21 07:08> Initial Vital Signs Initial Vital Signs: Vital Signs Temperature 97.4 F L 06/13/21 16:34 Pulse Rate 74 06/13/21 16:34 Respiratory Rate 18 06/13/21 16:34 Blood Pressure 110/82 06/13/21 16:34 Pulse Oximetry 99 06/13/21 16:34 Course <KENYATTA Prcie - Last Filed: 06/13/21 20:36> Orders Ordered: ED Orders 06/13/21 16:38 COVID19 -Nasal swab/Pre-Proc Stat 06/13/21 17:46 XR chest 1V Stat Vital Signs Vital signs: Vital Signs - 8 hr 06/13/21 16:34 06/13/21 18:33 Temperature 97.4 F L Pulse Rate 74 73 Respiratory Rate 18 Blood Pressure 110/82 118/59 L Pulse Oximetry 99 98 <DO Abhijit Jones Last Filed: 06/16/21 07:08> Orders Ordered: ED Orders 06/13/21 16:38 COVID19 -Nasal swab/Pre-Proc Stat 06/13/21 17:46 XR chest 1V Stat Vital Signs Vital signs: Vital Signs - 8 hr 06/13/21 16:34 06/13/21 18:33 Temperature 97.4 F L Pulse Rate 74 73 Respiratory Rate 18 Blood Pressure 110/82 118/59 L Pulse Oximetry 99 98 MDM - URI/Sore Throat <KENYATTA Price - Last Filed: 06/13/21 20:36> Lab Data Labs: Lab Results 06/13/21 Range/Units 16:38 SARS-CoV-2 (PCR) Negative (Negative) MDM Narrative Medical decision making narrative: Elva is a 40-year-old female who presents to the ED for congestion, productive cough, and postnasal drip that has been present since May 25. Chest x-ray was negative for infiltrates. Patient is nontoxic in appearance, has not had a fever, this is most likely a post nasal drip syndrome or a viral URI, but this could also be bronchitis or an asthma exacerbation. Patient has a history of asthma, denies any recent wheezing. She reports that she is tired of having the symptoms. Her COVID test was negative. <DO Abhijit Jones Last Filed: 06/16/21 07:08> Lab Data Labs: Lab Results 06/13/21 Range/Units 16:38 SARS-CoV-2 (PCR) Negative (Negative) Discharge Plan Departure Patient Disposition: Home Clinical Impression: Postnasal drip, Cough present for greater than 3 weeks Upper respiratory infection Qualifiers: URI type: unspecified URI Qualified Code(s): J06.9 - Acute upper respiratory infection, unspecified Instructions: DI for Cough -- Adult Activity Restrictions/Additional Instructions: *You have been diagnosed with a cough, postnasal drip, and possible viral bronchitis. Your chest x-ray was negative for pneumonia. Great news! *What to do: *Please continue to take your regular medications as directed. [x ] New medication prescriptions [facility] your [facility]: [facility] [place] [ ] New medication written as a paper prescription [ ] No new medications given *Please follow up with your primary care provider in 2-3 days, call for an appointment. Let them know you were seen in the Emergency Department and that we ask that you be seen in follow up. We will electronically transmit a record of today's note if your PCP is in our system *If you do not have a primary care provider please contact the [facility] Resource line at [phone]. They will ask some questions about your medical history and help get you set up with a doctor in the community. *Return to Emergency Department if you should have any new, worsening or concerning symptoms, such as [fever greater than 101F, chills, worsening pain, persistent vomiting or other bothersome symptoms] Prescriptions: New methylprednisolone 4 mg tablets,dose pack See Rx Instructions .ROUTE .COMPLEX Qty: 21 RF: 0 No Action fluoxetine 10 mg capsule 10 mg PO DAILY RF: 0 albuterol sulfate [ProAir HFA] 90 mcg/actuation HFA aerosol inhaler 2 puff inhalation Q4H PRN (Reason: Shortness Of Breath Or Wheezing) RF: 0 oxycodone-acetaminophen [Percocet] 5-325 mg tablet 1 tab PO Q6H PRN (Reason: pain) Qty: 10 RF: 0 polymyxin B sulf-trimethoprim 10,000 unit- 1 mg/mL drops 1 drp EYE-BOTH Q3H Qty: 10 RF: 0 amoxicillin-pot clavulanate [Augmentin] 875-125 mg tablet 1 tab PO Q12H Qty: 14 RF: 0 prednisone 20 mg tablet 40 mg PO DAILY Qty: 8 RF: 0 tramadol 50 mg tablet 50 mg PO Q6H PRN (Reason: pain) Qty: 12 RF: 0 Referrals: Karolyn Monique MD [Primary Care Provider] - <Abraham Lomas DO - Last Filed: 06/16/21 07:08> Cosign ED Attending Cosignature Attestation: Dr Lomas Co-Sign Statement: I was curtisa lanette for consultation during this patient's emergency department visit. This chart is signed by myself for administrative purposes only. I did not have direct contact with this patient during this visit. They were seen independently by the APC.
== END 2021-06-13 18:34 | disposition home or self-care (01) ==
PROVIDERS: Emergency Medicine; Emergency Provider Nurse Practitioner Critical Care Medicine; PCP Family Medicine
DX: J06.9 Acute upper respiratory infection, unspecified (principal); R09.82 Postnasal drip; R05 Cough; Z20.822 Contact with and (suspected) exposure to COVID-19
CPT/HCPCS: 71045; 87635; 99283; C9803

== ENCOUNTER 2021-10-31 13:29 | Emergency (ER) | payer OTHER, MEDICAID, SELFPAY ==
[2021-10-31 13:36] VITALS: BP 123/71; PULSE 73; RESP 16; TEMP 36.1; O2SAT 99; BMI 42.9
--- NOTE | 2021-10-31 13:45 | ED_ITS ---
HPI - Dental/Oral <Roger Nuñez PA-C - Last Filed: 10/31/21 14:03> General Chief complaint: Dental/Oral Stated complaint: lt. side teeth pos. infection Time Seen by Provider: 10/31/21 13:40 Source: patient Mode of arrival: Ambulatory History of Present Illness HPI Narrative: Patient is a 41-year-old female who presents today with left-sided dental jaw pain. She had several teeth extracted 5 days ago at her local dentist today she is having increased pain she has taken Tylenol Motrin without any success in relief of her pain. She denies any discharge or any drainage. She reports no difficulty with the procedure she was unable to get a hold of her dentist who presents due to intractable pain. No reported fever nausea vomiting diarrhea headache congestion cough sore throat. Related Data Home Medications Medication Instructions Recorded Confirmed albuterol sulfate 90 mcg/actuation 2 puff INHALATION Q4H PRN 11/18/19 11/18/19 aerosol inhaler (ProAir HFA) fluoxetine 10 mg capsule 10 mg PO DAILY 11/18/19 11/18/19 Previous Rx's Medication Instructions Recorded oxycodone-acetaminophen 5 mg-325 1 tab PO Q6H PRN #10 tab 12/17/19 mg tablet (Percocet) amoxicillin 875 mg-potassium 1 tab PO Q12H #14 tab 12/20/19 clavulanate 125 mg tablet (Augmentin) prednisone 20 mg tablet 40 mg PO DAILY #8 tab 12/20/19 tramadol 50 mg tablet 50 mg PO Q6H PRN #12 tab 12/20/19 polymyxin B sulfate 10,000 1 drp EYE-BOTH Q3H #10 ml 04/02/21 unit-trimethoprim 1 mg/mL eye drops methylprednisolone 4 mg tablets in See Rx Instructions .ROUTE 06/13/21 a dose pack .COMPLEX #21 ea amoxicillin 500 mg capsule 500 mg PO Q8H #12 cap 10/31/21 Allergies Allergy/AdvReac Type Severity Reaction Status Date / Time naproxen [From NAPROSYN] Allergy Severe anaphylactic Verified 06/13/21 16:34 - PT STATES MOTRIN IS OK olive oil [OLIVE OIL] Allergy Unknown Verified 06/13/21 16:34 Sulfa (Sulfonamide Allergy Unknown Swelling Verified 10/31/21 13:39 Antibiotics) of [SULFA (SULFONAMIDE Lip/Tongue/Throat ANTIBIOTICS)] Review of Systems <Roger Nuñez PA-C - Last Filed: 10/31/21 14:03> Review of Systems ROS Unobtainable: All systems reviewed & are unremarkable except as noted in HPI and below Constitutional Constitutional: Denies chills, Denies fatigue, Denies fever(s), Denies frequent falls, Denies lethargy and Denies weakness Eyes Eyes: Denies change in vision, Denies eye discharge, Denies irritation and Denies loss of vision ENT Ears, Nose, Mouth, and Throat: Denies change in voice, Reports dental pain, Denies dizziness, Denies neck pain, Denies sore throat and Denies throat swelling Cardiovascular Cardiovascular: Denies chest pain, Denies irregular heart rhythm, Denies lightheadedness, Denies palpitations, Denies dyspnea, Denies dyspnea on exertion and Denies orthopnea Respiratory Respiratory: Denies cough, Denies dyspnea, Denies dyspnea on exertion and Denies wheezing Gastrointestinal Gastrointestinal: Denies abdominal pain, Denies change in bowel habits, Denies diarrhea, Denies nausea and Denies vomiting Genitourinary Genitourinary: Denies hematuria, Denies flank pain, Denies urinary incontinence and Denies urinary urgency Musculoskeletal Musculoskeletal: Denies back pain, Denies muscle weakness, Denies neck pain, Denies numbness and Denies tingling Integumentary/Breasts Skin/Breast: Denies pruritus, Denies erythema, Denies rash and Denies wounds Neurologic Neurologic: Denies behavioral changes, Denies confusion, Denies dizziness, Denies frequent falls, Denies loss of vision, Denies numbness, Denies tingling and Denies weakness Psychiatric Psychiatric: Denies anxiety, Denies behavioral changes, Denies confusion, Denies depression, Denies homicidal ideation and Denies suicidal ideation Endocrine Endocrine: Denies fatigue, Denies flushing and Denies palpitations Hematologic/Lymphatic Hematologic/Lymphatic: Denies easy bruising Allergic/Immunologic Allergic/Immunologic: Denies urticaria, Denies throat swelling and Denies wheezing Patient History <Roger Nuñez PA-C - Last Filed: 10/31/21 14:03> Social History Smoking Status: Current every day smoker Smoking Status: Current every day smoker tobacco type: cigarettes alcohol intake frequency: a few times a month Substance Use Type: does not use Exam <Roger Nuñez PA-C - Last Filed: 10/31/21 14:03> Initial Vital Signs Initial Vital Signs: Vital Signs Temperature 96.9 F L 10/31/21 13:36 Pulse Rate 73 10/31/21 13:36 Respiratory Rate 16 10/31/21 13:36 Blood Pressure 123/71 10/31/21 13:36 Pulse Oximetry 99 10/31/21 13:36 Const General: cooperative, healthy appearing and comfortable Nutritional Appearance: average body habitus Orientation: Orientation [facility] Head: normal to inspection, normocephalic and atraumatic Ears: hearing grossly normal bilaterally Nose: external nose normal Face and sinus: normal facial exam Teeth and gingiva: abnormal tooth or associated gingiva, caries and gingiva abnormal <Alexia Clancy MD - Last Filed: 10/31/21 14:54> Initial Vital Signs Initial Vital Signs: Vital Signs Temperature 96.9 F L 10/31/21 13:36 Pulse Rate 73 10/31/21 13:36 Respiratory Rate 16 10/31/21 13:36 Blood Pressure 123/71 10/31/21 13:36 Pulse Oximetry 99 10/31/21 13:36 Procedures <Roger Nuñez PA-C - Last Filed: 10/31/21 14:03> Nerve Block Nerve Block 1: Time of procedure: 13:50 Time out performed: No Local Anesthetic: lidocaine 1% Amount of anesthesia used (mL): 3 Side: left Intraoral Nerve Block: inferior alveolar Procedure Successful: Yes Patient Tolerated Procedure: Well and No complications Course <Roger Nuñez PA-C - Last Filed: 10/31/21 14:03> Orders Ordered: Discontinued Medications Lidocaine HCl (Lidocaine 1% 20 Ml) 20 ml INJ INTRA-OP ONE Stop: 10/31/21 13:45 Last Admin: 10/31/21 13:56 Dose: 3 ml Documented by: CECI Lidocaine HCl (Lidocaine 1% 20 Ml) 20 ml INJ INTRA-OP ONE Stop: 10/31/21 13:45 Last Admin: 10/31/21 13:57 Dose: Not Given Documented by: CECI Vital Signs Vital signs: Vital Signs - 8 hr 10/31/21 13:36 Temperature 96.9 F L Pulse Rate 73 Respiratory Rate 16 Blood Pressure 123/71 Pulse Oximetry 99 <Alexia Clancy MD - Last Filed: 10/31/21 14:54> Orders Ordered: Discontinued Medications Lidocaine HCl (Lidocaine 1% 20 Ml) 20 ml INJ INTRA-OP ONE Stop: 10/31/21 13:45 Last Admin: 10/31/21 13:56 Dose: 3 ml Documented by: ATAYLOR Lidocaine HCl (Lidocaine 1% 20 Ml) 20 ml INJ INTRA-OP ONE Stop: 10/31/21 13:45 Last Admin: 10/31/21 13:57 Dose: Not Given Documented by: ATAYLOR Vital Signs Vital signs: Vital Signs - 8 hr 10/31/21 13:36 Temperature 96.9 F L Pulse Rate 73 Respiratory Rate 16 Blood Pressure 123/71 Pulse Oximetry 99 MDM - Dental/Oral <Roger Nuñez PA-C - Last Filed: 10/31/21 14:03> Differential Diagnosis Differential diagnosis: Likely dental abscess MDM Narrative Medical decision making narrative: Patient was evaluated and treated for dental pain associated with that the teeth extraction of the left side of her mouth. She reports that she had 5 teeth removed 5 days ago has had increased pain. Dental block left sided inferior alveolar nerve was bathed with 1% lidocaine patient tolerated well we will send in an antibiotic to help with associated infection recommend follow up with her then dentist this week. Discharge Plan Departure Patient Disposition: Home Clinical Impression: Dental caries, Dental abscess Instructions: DI for Dental Pain Activity Restrictions/Additional Instructions: And antibiotic was sent to your pharmacy of choice. I recommend you take that antibiotic as prescribed until finished. Follow up with her dentist this week for recheck and evaluation. Prescriptions: New amoxicillin 500 mg capsule 500 mg PO Q8H Qty: 12 0RF No Action fluoxetine 10 mg capsule 10 mg PO DAILY 0RF Label Comments: take 1 capsule by mouth once daily albuterol sulfate [ProAir HFA] 90 mcg/actuation HFA aerosol inhaler 2 puff inhalation Q4H PRN (Reason: Shortness Of Breath Or Wheezing) 0RF Label Comments: INHALE 2 PUFFS BY MOUTH EVERY 4 HOURS NEEDED FOR WHEEZING OR S...(REFER TO PRESCRIPTION NOTES). oxycodone-acetaminophen [Percocet] 5-325 mg tablet 1 tab PO Q6H PRN (Reason: pain) Qty: 10 0RF polymyxin B sulf-trimethoprim 10,000 unit- 1 mg/mL drops 1 drp EYE-BOTH Q3H Qty: 10 0RF amoxicillin-pot clavulanate [Augmentin] 875-125 mg tablet 1 tab PO Q12H Qty: 14 0RF prednisone 20 mg tablet 40 mg PO DAILY Qty: 8 0RF tramadol 50 mg tablet 50 mg PO Q6H PRN (Reason: pain) Qty: 12 0RF methylprednisolone 4 mg tablets,dose pack See Rx Instructions .ROUTE .COMPLEX Qty: 21 0RF Rx Instructions: orally per package directions Referrals: Karolyn Monique MD [Primary Care Provider] - <Alexia Clancy MD - Last Filed: 10/31/21 14:54> Cosign ED Attending Cosignature Attestation: I was immediately available in the department for consultation throughout this patient's visit. I agree with documentation as above. Alexia Clancy MD
[2021-10-31] MEDS: LIDOCAINE 1% 20 ML INJ (13:56)
== END 2021-10-31 14:13 | disposition home or self-care (01) ==
PROVIDERS: Emergency Provider Physician Assistant; PCP Family Medicine
DX: K02.9 Dental caries, unspecified (principal); K04.7 Periapical abscess without sinus
CPT/HCPCS: 64450; 99282; 99283

== ENCOUNTER 2022-01-14 09:21 | Emergency (ER) | payer OTHER, MEDICAID, SELFPAY ==
[2022-01-14] VITALS (9 sets, daily range): BP systolic 88–134; BP diastolic 50–70; PULSE 62–79; RESP 16; TEMP 36.7–36.8; O2SAT 97–99; BMI 46.3
--- NOTE | 2022-01-14 09:32 | ED.GENADULT ---
HPI - General Adult General Chief complaint: Abdominal Pain Stated complaint: Stomach pain , blood in stools Time Seen by Provider: 01/14/22 09:30 History of Present Illness HPI narrative: 41-year-old woman who has a history of intermittent mild abdominal pain over the last 2 years but over the last 48 hours she has had dramatic increase in stomach pain and cramping pain was severe enough that she had an episode of vomiting last night. She is having multiple episodes of loose watery diarrhea and noted some blood mixed in with the diarrhea this morning. She has never had any issues with GI bleeding past. 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 Nobody else at home is sick. She has not been febrile, there is no cough, chest pain, palpitations and no dysuria or flank pain. She states that the abdominal pain is over her entire abdomen, worse when she is having the cramping that leads to the episodes of diarrhea and then less than slightly but never entirely resolves. Related Data Home Medications Medication Instructions Recorded Confirmed albuterol sulfate 90 mcg/actuation 2 puff INHALATION Q4H PRN 11/18/19 11/18/19 aerosol inhaler (ProAir HFA) fluoxetine 10 mg capsule 10 mg PO DAILY 11/18/19 11/18/19 Previous Rx's Medication Instructions Recorded oxycodone-acetaminophen 5 mg-325 1 tab PO Q6H PRN #10 tab 12/17/19 mg tablet (Percocet) amoxicillin 875 mg-potassium 1 tab PO Q12H #14 tab 12/20/19 clavulanate 125 mg tablet (Augmentin) prednisone 20 mg tablet 40 mg PO DAILY #8 tab 12/20/19 tramadol 50 mg tablet 50 mg PO Q6H PRN #12 tab 12/20/19 polymyxin B sulfate 10,000 1 drp EYE-BOTH Q3H #10 ml 04/02/21 unit-trimethoprim 1 mg/mL eye drops methylprednisolone 4 mg tablets in See Rx Instructions .ROUTE 06/13/21 a dose pack .COMPLEX #21 ea amoxicillin 500 mg capsule 500 mg PO Q8H #12 cap 10/31/21 Allergies Allergy/AdvReac Type Severity Reaction Status Date / Time naproxen [From NAPROSYN] Allergy Severe anaphylactic Verified 06/13/21 16:34 - PT STATES MOTRIN IS OK olive oil [OLIVE OIL] Allergy Unknown Verified 06/13/21 16:34 Sulfa (Sulfonamide Allergy Unknown Swelling Verified 10/31/21 13:39 Antibiotics) of [SULFA (SULFONAMIDE Lip/Tongue/Throat ANTIBIOTICS)] Review of Systems Review of Systems Narrative: Remainder of complete review of systems is otherwise unremarkable except for that included in the HPI. Patient History Social History Smoking Status: Current every day smoker Smoking Status: Current every day smoker tobacco type: cigarettes alcohol intake frequency: a few times a month Substance Use Type: does not use Exam Initial Vital Signs Initial Vital Signs: Vital Signs Pulse Rate 79 01/14/22 09:29 Pulse Oximetry 99 01/14/22 09:29 General: Healthy appearing, in mild distress. Able to give a complete and coherent history. Well-nourished well-developed HEENT: Moist mucous membranes, normal sclera with reactive pupils, Respiratory: Lungs are clear to auscultation, no wheezing no rales no rhonchi. Full and symmetrical air movement Cardiac: Regular rate and rhythm no murmurs no bruits Abdomen: Soft, obese, mild diffuse tenderness in all quadrants without rebound or guarding, good bowel tones, no flank pain Skin: Warm and dry, no rashes Neurologic: Grossly neurologically intact with no obvious asymmetries or abnormalities Extremities: No trauma, well perfused Psych: Cooperative, appropriate insight and affect Course Orders Ordered: ED Orders 01/14/22 09:44 GI Panel (Film Array) Stat 01/14/22 10:15 Complete Blood Count AUTO DIFF Stat Comprehensive Metabolic Panel Stat Magnesium Stat Hydromorphone HCl (Hydromorphone 0.5 Mg Inj) 0.5 mg IV Q15MIN PRN PRN Reason: Pain, Last Admin: 01/14/22 10:05 Dose: 0.5 mg Documented by: ALEXIA Discontinued Medications Sodium Chloride (Normal Saline 0.9%) 1,000 mls @ 1,000 mls/hr IV BOLUS ONE Stop: 01/14/22 10:43 Last Infusion: 01/14/22 11:36 Dose: 0 mls/hr Documented by: Admin: 01/14/22 10:05 Dose: 1,000 mls/hr Documented by: ALEXIA Ondansetron HCl (Ondansetron 4 Mg/2 Ml Inj) 4 mg IV NOW ONE Stop: 01/14/22 09:45 Last Admin: 01/14/22 10:04 Dose: 4 mg Documented by: ALEXIA Vital Signs Vital signs: Vital Signs - 8 hr 01/14/22 09:29 01/14/22 09:30 01/14/22 09:34 Temperature 98.2 F Pulse Rate 79 75 74 Respiratory Rate 16 Blood Pressure 134/70 134/70 Pulse Oximetry 99 99 99 01/14/22 10:00 01/14/22 10:30 01/14/22 12:17 Temperature Pulse Rate 69 66 73 Respiratory Rate Blood Pressure Pulse Oximetry 99 97 99 01/14/22 12:18 01/14/22 12:19 Temperature Pulse Rate 69 70 Respiratory Rate Blood Pressure 88/55 L 90/53 L Pulse Oximetry 99 99 Medical Decision Making Lab Data Result diagrams: 01/14/22 10:15 01/14/22 10:15 Labs: Lab Results 01/14/22 01/14/22 Range/Units 10:15 10:15 WBC 7.9 (4.5-11.0) X10^3/uL RBC 4.50 (4.0-5.2) X10^6/uL Hgb 13.1 (12.0-16.0) g/dL Hct 38.6 (36-46) % MCV 85.8 (80-100) fL MCH 29.1 (26-34) PG MCHC 33.9 (30-36) % RDW 12.5 (11.6-14.8) % Plt Count 239 (150-400) X10^3/uL Neut % (Auto) 60.6 (50-75) % Lymph % (Auto) 29.1 (25-40) % [place] % (Auto) 7.5 (3-14) % Eos % (Auto) 2.0 (2-4) % Baso % (Auto) 0.8 (0-2) % Neut # (Auto) 4800 (3020-9169) /uL Lymph # (Auto) 2300 (8559-7387) /uL [place] # (Auto) 600 (0-900) /uL Eos # (Auto) 200 (0-450) /uL Baso # (Auto) 100 (0-100) /uL Sodium 137 (137-145) mmol/L Potassium 4.7 (3.4-5.1) mmol/L Chloride 104 (98-107) mmol/L Carbon Dioxide 21 L (22-32) mmol/L BUN 15 (7-17) mg/dL Creatinine 0.76 (0.52-1.04) mg/dL Estimated GFR > 60 (>60) mL/min BUN/Creatinine Ratio 19.7 (6-22) Glucose 99 (70-100) mg/dL Calcium 9.8 (8.4-10.2) mg/dL Magnesium 1.6 (1.6-2.3) mg/dL Total Bilirubin 0.6 (0.2-1.3) mg/dL AST 32 (14-36) IU/L ALT 21 (<35) IU/L Alkaline Phosphatase 48 (38-126) U/L Total Protein 8.4 H (6.3-8.2) g/dL Albumin 4.5 (3.5-5.0) g/dL Globulin 3.9 (1.7-4.1) g/dL Albumin/Globulin Ratio 1.2 (1.0-2.8) Urine Dip Bedside Urine Glucose Negative Bedside Urine Bilirubin - Negative Bedside Urine Ketone - Negative Urine Specific [place] 1.020 Bedside Urine Occult Blood - Negative Bedside Urine pH 6.0 Bedside Urine Protein - Negative Bedside Urine Urobilinogen +/- 1mg Bedside Urine Nitrite - Negative Bedside Urine Leukocytes - Negative Esterase Point of care testing: Urine Dip Bedside Urine Glucose Negative Bedside Urine Bilirubin - Negative Bedside Urine Ketone - Negative Urine Specific [place] 1.020 Bedside Urine Occult Blood - Negative Bedside Urine pH 6.0 Bedside Urine Protein - Negative Bedside Urine Urobilinogen +/- 1mg Bedside Urine Nitrite - Negative Bedside Urine Leukocytes - Negative Esterase [facility] Narrative Medical decision making narrative: 41-year-old woman with 3 days of crampy abdominal pain and diarrhea. No significant fevers. She started noting some blood mixed in with the stool today. Blood work is reassuring with no concern for significant electrolyte abnormalities, acute kidney injury or sepsis. With the fluids had and nausea medicine she is relaxed enough that she has not had another bowel movement since being in the emergency department. Encouraged her to see if she could get us a stool sample so we can see if we can identify the source of her diarrhea. At this point she is looking significantly better and will be appropriate for home discharge. 1pm still no stool since she has arrived in the emergency department. She is able to eat and drink. Abdominal cramping is still present but significantly improved. Abdominal exam is benign. She is safe for home discharge Discharge Plan Departure Patient Disposition: Home Clinical Impression: Diarrhea Qualifiers: Diarrhea type: unspecified type Qualified Code(s): R19.7 - Diarrhea, unspecified Abdominal pain Qualifiers: Abdominal location: generalized Qualified Code(s): R10.84 - Generalized abdominal pain Instructions: DI for Viral Gastroenteritis -- Adult, DI for Abdominal Pain-Adult Activity Restrictions/Additional Instructions: Thank you for coming in today Your blood work was very reassuring. There was no sign of overwhelming infection, kidney dysfunction, significant anemia or bacterial complications. I suspect you have a a virus that is causing your diarrhea. It likely is getting close to the end of its course and you should start feeling better. I would encourage you to keep yourself hydrated. If you are having worsening symptoms or new findings, please return to the ER Prescriptions: No Action fluoxetine 10 mg capsule 10 mg PO DAILY 0RF Label Comments: take 1 capsule by mouth once daily albuterol sulfate [ProAir HFA] 90 mcg/actuation HFA aerosol inhaler 2 puff inhalation Q4H PRN (Reason: Shortness Of Breath Or Wheezing) 0RF Label Comments: INHALE 2 PUFFS BY MOUTH EVERY 4 HOURS NEEDED FOR WHEEZING OR S...(REFER TO PRESCRIPTION NOTES). oxycodone-acetaminophen [Percocet] 5-325 mg tablet 1 tab PO Q6H PRN (Reason: pain) Qty: 10 0RF polymyxin B sulf-trimethoprim 10,000 unit- 1 mg/mL drops 1 drp EYE-BOTH Q3H Qty: 10 0RF amoxicillin 500 mg capsule 500 mg PO Q8H Qty: 12 0RF amoxicillin-pot clavulanate [Augmentin] 875-125 mg tablet 1 tab PO Q12H Qty: 14 0RF prednisone 20 mg tablet 40 mg PO DAILY Qty: 8 0RF tramadol 50 mg tablet 50 mg PO Q6H PRN (Reason: pain) Qty: 12 0RF methylprednisolone 4 mg tablets,dose pack See Rx Instructions .ROUTE .COMPLEX Qty: 21 0RF Rx Instructions: orally per package directions Referrals: Sherrill Henry, [facility] [Primary Care Provider] -
[2022-01-14] MEDS: ONDANSETRON 4 MG/2 ML INJ IV (10:04)
[2022-01-14] MEDS: HYDROMORPHONE 0.5 MG INJ IV (10:05)
[2022-01-14] MEDS: SODIUM CHLORIDE 0.9% 1,000 ML 1000 ML IV (10:05)
[2022-01-14 10:31] LABS: Add Manual Diff / Slide Review NO; Basophils Absolute Auto 100 /uL (0-100); Basophils Percent Auto 0.8 % (0-2); Eosinophils Absolute Auto 200 /uL (0-450); Hematocrit 38.6 % (36-46); Hemoglobin 13.1 g/dL (12.0-16.0); Lymphocytes Absolute Auto 2300 /uL (1100-4500); Lymphocytes Percent Auto 29.1 % (25-40); Mean Corpuscular HGB Conc 33.9 % (30-36); Mean Corpuscular Hemoglobin 29.1 PG (26-34); Mean Corpuscular Volume 85.8 fL (80-100); Monocytes Absolute Auto 600 /uL (0-900); Monocytes Percent Auto 7.5 % (3-14); Neutrophils Absolute Auto 4800 /uL (1500-7000); Neutrophils Percent Auto 60.6 % (50-75); Platelet Count 239 X10^3/uL (150-400); Red Cell Distribution Width 12.5 % (11.6-14.8); White Blood Cell Count 7.9 X10^3/uL (4.5-11.0)
[2022-01-14 10:37] LABS: Alanine Aminotransferase 21 IU/L (<35); Albumin 4.5 g/dL (3.5-5.0); Albumin Globulin Ratio 1.2 (1.0-2.8); Alkaline Phosphatase 48 U/L (38-126); Aspartate Aminotransferase 32 IU/L (14-36); BUN Creatinine Ratio 19.7 (6-22); Bilirubin Total 0.6 mg/dL (0.2-1.3); Blood Urea Nitrogen 15 mg/dL (7-17); Calcium 9.8 mg/dL (8.4-10.2); Carbon Dioxide 21 mmol/L (22-32); Chloride 104 mmol/L (98-107); Estimated Glomerular Filt Rate > 60 mL/min (>60); Globulin 3.9 g/dL (1.7-4.1); Glucose 99 mg/dL (70-100); HEMOLYSIS 34 (0-50); Magnesium 1.6 mg/dL (1.6-2.3); Potassium 4.7 mmol/L (3.4-5.1); Sodium 137 mmol/L (137-145); Total Protein 8.4 g/dL (6.3-8.2)
--- NOTE | 2022-01-14 12:23 | PC.NURSE ---
Pt still unable to provide stool smaple. Provider updated on decreased bp after Dilaudid.
--- NOTE | 2022-01-14 12:58 | PC.NURSE ---
Pt able to tolerate PO without vomiting. Pt ambulated to restroom to urinate. pt still unable to provide stool sample.
== END 2022-01-14 13:32 | disposition home or self-care (01) ==
PROVIDERS: Emergency Provider Emergency Medicine; PCP Registered Nurse General Practice
DX: R19.7 Diarrhea, unspecified (principal); R10.84 Generalized abdominal pain; F17.210 Nicotine dependence, cigarettes, uncomplicated
CPT/HCPCS: 36415; 80053; 81003; 83735; 85025; 96361; 96374; 96375; 99284; J1170; J2405

== ENCOUNTER 2022-01-27 13:53 | Emergency (ER) | payer OTHER, MEDICAID, SELFPAY ==
[2022-01-27 14:20] VITALS: BP 138/85; PULSE 85; RESP 15; TEMP 36.4; O2SAT 99; BMI 45.6
--- NOTE | 2022-01-27 14:29 | DI.US.S_ITS ---
PROCEDURE: US ABDOMEN LIMITED INDICATIONS: RUQ PAIN TECHNIQUE: Real-time scanning was performed of the abdominal and retroperitoneal organs, with image documentation. COMPARISON: None. FINDINGS: Liver: The liver measures 19.3 cm in length and demonstrates increased echogenicity. Gallbladder: The gallbladder wall measures 2.2 mm in diameter. No stones, sludge, pericholecystic fluid, or sonographic Lucas sign. Biliary ducts: Intrahepatic bile ducts are non-dilated. The common hepatic duct measures 5.7 mm in diameter. The common bile duct was not imaged. Pancreas: The pancreas was not visualized due to bowel gas. Spleen: Spleen is normal in size and homogeneous in echotexture. IMPRESSION: 1. Increased hepatic echogenicity noted likely related to fatty infiltration of the liver but other sources of hepatocellular disease cannot be excluded. 2. No cholelithiasis or findings to suggest choledocholithiasis or acute cholecystitis. Dictated by: Genie Cerda M.D. on 01/27/2022 at 15:41 Approved by: Genie Cerda M.D. on 01/27/2022 at 15:42
[2022-01-27 15:43] LABS: Add Manual Diff / Slide Review NO; Basophils Absolute Auto 100 /uL (0-100); Basophils Percent Auto 0.7 % (0-2); Eosinophils Absolute Auto 100 /uL (0-450); Eosinophils Percent Auto 1.9 % (2-4); Hematocrit 34.7 % (36-46); Lymphocytes Absolute Auto 2100 /uL (1100-4500); Lymphocytes Percent Auto 30.7 % (25-40); Mean Corpuscular HGB Conc 34.7 % (30-36); Mean Corpuscular Hemoglobin 29.6 PG (26-34); Mean Corpuscular Volume 85.3 fL (80-100); Monocytes Absolute Auto 500 /uL (0-900); Neutrophils Absolute Auto 3900 /uL (1500-7000); Neutrophils Percent Auto 58.7 % (50-75); Platelet Count 214 X10^3/uL (150-400); Red Blood Cell Count 4.08 X10^6/uL (4.0-5.2); Red Cell Distribution Width 12.8 % (11.6-14.8); White Blood Cell Count 6.7 X10^3/uL (4.5-11.0)
--- NOTE | 2022-01-27 15:56 | ED_ITS ---
HPI - Abdominal Pain <Sherrill Gaspar [facility] - Last Filed: 01/27/22 20:09> General Chief Complaint: Abdominal Pain Stated Complaint: Stomach pain, was here 2w ago Time Seen by Provider: 01/27/22 14:29 Source: patient Mode of arrival: Ambulatory History of Present Illness HPI narrative: This is a 41-year-old female presents to the emergency department complaining of low abdominal pain for the last 4 weeks. She states that every time she eats she has nausea, she has had diarrhea this whole time. She states that she just started taking Prilosec 5 days ago for epigastric pain and heartburn symptoms. She states that she was seen in the emergency department 2 weeks ago for this same pain, not gotten any better. She states that she has an ultrasound coming up but she presents to the ER today for worsening pain and gassy pressure in her lower abdomen. She states that she has right upper quadrant pain after she eats every time, has had loose stool without any blood in it for the last 2 weeks. She was tested for H pylori, Shigella, stool culture for Salmonella and these were all negative for those tests. She did not have C diff test. She denies any recent antibiotics. She denies any fever, endorses nausea and vomiting in the last 2 days. Denies any blood in her emesis or stool currently. She denies any weakness, lightheadedness, feeling faint, flank pain, dysuria, or other symptom. She denies any surgical history of her abdomen other than a and she had a tubal ligation at her time of . Related Data Home Medications Medication Instructions Recorded Confirmed albuterol sulfate 90 mcg/actuation 2 puff INHALATION Q4H PRN 11/18/19 11/18/19 aerosol inhaler (ProAir HFA) fluoxetine 10 mg capsule 10 mg PO DAILY 11/18/19 11/18/19 Previous Rx's Medication Instructions Recorded oxycodone-acetaminophen 5 mg-325 1 tab PO Q6H PRN #10 tab 12/17/19 mg tablet (Percocet) amoxicillin 875 mg-potassium 1 tab PO Q12H #14 tab 12/20/19 clavulanate 125 mg tablet (Augmentin) prednisone 20 mg tablet 40 mg PO DAILY #8 tab 12/20/19 tramadol 50 mg tablet 50 mg PO Q6H PRN #12 tab 12/20/19 polymyxin B sulfate 10,000 1 drp EYE-BOTH Q3H #10 ml 04/02/21 unit-trimethoprim 1 mg/mL eye drops methylprednisolone 4 mg tablets in See Rx Instructions .ROUTE 06/13/21 a dose pack .COMPLEX #21 ea amoxicillin 500 mg capsule 500 mg PO Q8H #12 cap 10/31/21 simethicone 125 mg chewable tablet 125 mg PO TID PRN #20 tab 01/27/22 simethicone 80 mg chewable tablet 80 mg PO BID-QID PRN #30 tab 01/27/22 tramadol 50 mg tablet 50 mg PO BID PRN #14 tab 01/27/22 Allergies Allergy/AdvReac Type Severity Reaction Status Date / Time naproxen [From NAPROSYN] Allergy Severe anaphylactic Verified 01/27/22 14:22 - PT STATES MOTRIN IS OK olive oil [OLIVE OIL] Allergy Unknown Verified 01/27/22 14:22 Sulfa (Sulfonamide Allergy Unknown Swelling Verified 01/27/22 14:22 Antibiotics) of [SULFA (SULFONAMIDE Lip/Tongue/Throat ANTIBIOTICS)] Review of Systems <KENYATTA Price - Last Filed: 01/27/22 20:09> Review of Systems Narrative: General: denies fever, chills, malaise, sweats, fatigue Head/Neck: denies headache, neck pain, dizziness Eyes: denies visual changes, eye pain Cardio: denies chest pain, palpitations, edema Respiratory: denies dyspnea, cough, orthopnea GI: Endorses transverse lower quadrant abdominal pain that comes and goes, states it is gassy-like pressure nausea, endorses vomiting yesterday and daily loose stool : denies dysuria, hematuria, urinary retention, frequency or incontinence MSK: denies joint pain, muscle weakness Skin: denies rash, itching, skin lesions or other Neuro: denies numbness, tingling Patient History <KENYATTA Price - Last Filed: 01/27/22 20:09> Social History Smoking Status: Former smoker Smoking Status: Former smoker tobacco type: cigarettes alcohol intake frequency: holidays/special occasions only Substance Use Type: does not use Exam <KENYATTA Price - Last Filed: 01/27/22 20:09> Narrative Exam Narrative: Independently reviewed vitals signs and nursing notes. General: cooperative, comfortable, in no acute distress, well developed and well groomed Head: atraumatic, symmetrical facial expressions Neck: supple, atraumatic, without lymphadenopathy. Eyes: pupils equal round and reactive, EOMI, conjunctiva normal Nose: nares patent, no rhinorrhea Mouth/Throat: uvula midline, moist mucus membranes Cardiovascular: regular rate and rhythm, no peripheral edema, warm extremities Respiratory: normal effort, able to speak in complete sentences, no audible wheezing, stridor, or rales. No retractions or tachypnea. GI: abdomen soft, obese, nontender to palpation, mildly distended, no masses, no exquisite tenderness with exam, without guarding or rebound. No CVA tenderness MSK: moves all extremities, ambulatory w/steady gait, neurovascularly intact, no weakness Skin: brisk capillary refill, no rash, no erythema Neuro: normal speech and cognition, A&O x3, normal tone Psych: mental status is grossly normal, congruent mood, normal affect, pleasant and cooperative Initial Vital Signs Initial Vital Signs: Vital Signs Temperature 97.5 F L 01/27/22 14:20 Pulse Rate 85 01/27/22 14:20 Respiratory Rate 15 01/27/22 14:20 Blood Pressure 138/85 01/27/22 14:20 Pulse Oximetry 99 01/27/22 14:20 <Abraham Lomas DO - Last Filed: 01/29/22 07:14> Initial Vital Signs Initial Vital Signs: Vital Signs Temperature 97.5 F L 01/27/22 14:20 Pulse Rate 85 01/27/22 14:20 Respiratory Rate 15 01/27/22 14:20 Blood Pressure 138/85 01/27/22 14:20 Pulse Oximetry 99 01/27/22 14:20 Course <KENYATTA Price - Last Filed: 01/27/22 20:09> Orders Ordered: Discontinued Medications Hydrocodone Bitart/Acetaminophen (Hydrocodone/Acet 5/325 Tablet) 1 tab PO NOW ONE Stop: 01/27/22 17:07 Last Admin: 01/27/22 17:15 Dose: 1 tab Documented by: NRHOTREVER Al Hydrox/Mg Hydrox/Simethicone (Mag Hydrox/Alum/Simeth 30 Ml Udc) 30 ml PO NOW ONE Stop: 01/27/22 17:07 Last Admin: 01/27/22 17:15 Dose: 30 ml Documented by: ZAKI Ondansetron HCl (Ondansetron 4 Mg/2 Ml Inj) 4 mg IV NOW ONE Stop: 01/27/22 16:02 Last Admin: 01/27/22 16:24 Dose: 4 mg Documented by: ZAKI Vital Signs Vital signs: Vital Signs - 8 hr 01/27/22 14:20 01/27/22 15:57 01/27/22 15:58 Temperature 97.5 F L Pulse Rate 85 70 Respiratory Rate 15 Blood Pressure 138/85 134/65 Pulse Oximetry 99 95 99 01/27/22 16:00 Temperature Pulse Rate 66 Respiratory Rate Blood Pressure Pulse Oximetry 99 <Abraham Lomas DO - Last Filed: 01/29/22 07:14> Orders Ordered: Discontinued Medications Hydrocodone Bitart/Acetaminophen (Hydrocodone/Acet 5/325 Tablet) 1 tab PO NOW ONE Stop: 01/27/22 17:07 Last Admin: 01/27/22 17:15 Dose: 1 tab Documented by: ZAKI Al Hydrox/Mg Hydrox/Simethicone (Mag Hydrox/Alum/Simeth 30 Ml Udc) 30 ml PO NOW ONE Stop: 01/27/22 17:07 Last Admin: 01/27/22 17:15 Dose: 30 ml Documented by: ZAKI Ondansetron HCl (Ondansetron 4 Mg/2 Ml Inj) 4 mg IV NOW ONE Stop: 01/27/22 16:02 Last Admin: 01/27/22 16:24 Dose: 4 mg Documented by: ZAKI Vital Signs Vital signs: Vital Signs - 8 hr 01/27/22 14:20 01/27/22 15:57 01/27/22 15:58 Temperature 97.5 F L Pulse Rate 85 70 Respiratory Rate 15 Blood Pressure 138/85 134/65 Pulse Oximetry 99 95 99 01/27/22 16:00 Temperature Pulse Rate 66 Respiratory Rate Blood Pressure Pulse Oximetry 99 MDM - Abdominal Pain <KENYATTA Price - Last Filed: 01/27/22 20:09> Lab Data Result diagrams: 01/27/22 15:10 01/27/22 15:10 Labs: Lab Results 01/27/22 01/27/22 Range/Units 15:10 15:10 WBC 6.7 (4.5-11.0) X10^3/uL RBC 4.08 (4.0-5.2) X10^6/uL Hgb 12.0 (12.0-16.0) g/dL Hct 34.7 L (36-46) % MCV 85.3 (80-100) fL MCH 29.6 (26-34) PG MCHC 34.7 (30-36) % RDW 12.8 (11.6-14.8) % Plt Count 214 (150-400) X10^3/uL Neut % (Auto) 58.7 (50-75) % Lymph % (Auto) 30.7 (25-40) % [place] % (Auto) 8.0 (3-14) % Eos % (Auto) 1.9 L (2-4) % Baso % (Auto) 0.7 (0-2) % Neut # (Auto) 3900 (4678-4418) /uL Lymph # (Auto) 2100 (1793-2539) /uL [place] # (Auto) 500 (0-900) /uL Eos # (Auto) 100 (0-450) /uL Baso # (Auto) 100 (0-100) /uL Sodium 141 (137-145) mmol/L Potassium 3.9 (3.4-5.1) mmol/L Chloride 109 H (98-107) mmol/L Carbon Dioxide 21 L (22-32) mmol/L BUN 10 (7-17) mg/dL Creatinine 0.74 (0.52-1.04) mg/dL Estimated GFR > 60 (>60) mL/min BUN/Creatinine Ratio 13.5 (6-22) Glucose 99 (70-100) mg/dL Calcium 8.7 (8.4-10.2) mg/dL Total Bilirubin 0.3 (0.2-1.3) mg/dL AST 26 (14-36) IU/L ALT 16 (<35) IU/L Alkaline Phosphatase 44 (38-126) U/L Total Protein 7.4 (6.3-8.2) g/dL Albumin 4.2 (3.5-5.0) g/dL Globulin 3.2 (1.7-4.1) g/dL Albumin/Globulin Ratio 1.3 (1.0-2.8) Lipase 106 (23-300) U/L Point of care testing: Point of Care Testing Test Results Negative Urine Dip Bedside Urine Glucose Negative Bedside Urine Bilirubin - Negative Bedside Urine Ketone - Negative Urine Specific [place] 1.025 Bedside Urine Occult Blood - Negative Bedside Urine pH 6.0 Bedside Urine Protein - Negative Bedside Urine Urobilinogen 0.2 Bedside Urine Nitrite - Negative Bedside Urine Leukocytes - Negative Esterase Imaging Data US - abdomen: Radiologist's Impression: PROCEDURE:? US ABDOMEN LIMITED ? INDICATIONS:? RUQ PAIN ? TECHNIQUE:? Real-time scanning was performed of the abdominal and retroperitoneal organs, with image documentation.? ? COMPARISON:? None. ? FINDINGS:? ? Liver:? The liver measures 19.3 cm in length and demonstrates increased echogenicity. ? Gallbladder:? The gallbladder wall measures 2.2 mm in diameter.? No stones, sludge, pericholecystic fluid, or sonographic Lucas sign.? ? Biliary ducts:? Intrahepatic bile ducts are non-dilated.? The common hepatic duct measures 5.7 mm in diameter.? The common bile duct was not imaged.? ? Pancreas:? The pancreas was not visualized due to bowel gas. ? Spleen:? Spleen is normal in size and homogeneous in echotexture.? ? ? IMPRESSION:? ? 1. Increased hepatic echogenicity noted likely related to fatty infiltration of the liver but other sources of hepatocellular disease cannot be excluded.? ? 2. No cholelithiasis or findings to suggest choledocholithiasis or acute cholecystitis. ? Dictated by: Genie Cerda M.D. on 01/27/2022 at 15:41 ? ? Approved by: Genie Cerda M.D. on 01/27/2022 at 15:42 ? CT scan - abdomen/pelvis: Radiologist's Impression: PROCEDURE:? CT ABDOMEN PELVIS W CON ? INDICATIONS:? lower quadrant abdominal pain, diverticulosis? RUQ pain ? TECHNIQUE:? After the administration of oral and IV contrast, axial sections were acquired from the lung bases to the pubic symphysis.? Coronal and sagittal reformats were performed.? For radiation dose reduction, the following was used:? automated exposure control, adjustment of mA and/or kV according to patient size. ? COMPARISON:? [facility], US, US ABDOMEN LIMITED, 01/27/2022, 14:31.? [facility], CT, CT ABDOMEN PELVIS WITH CONTRAST, 02/07/2019, 13:23. ? FINDINGS:? Image quality:? Excellent.? ? Lung bases:? Unremarkable.? ? Heart:? No significant findings. ? ? ABDOMEN: Liver:? An enlarged, fatty liver can be seen.? No suspicious liver lesions are seen. Gallbladder:? Unremarkable.? ? Biliary ducts:? Unremarkable.? ? Pancreas:? Unremarkable.? ? Spleen:? Unremarkable.? ? Adrenal Glands:? Unremarkable.? ? Kidneys and Ureters:? Unremarkable.? ? ? Stomach and Bowel:? In this patient with this given history, scrutiny is given to the left lower quadrant.? No significant diverticular formation can be seen.? No focal left lower quadrant inflammatory change is seen. Stomach, small bowel loops, and colon are unremarkable.? Peritoneum:? No abnormal intraperitoneal fluid.? No free air.? ? Ventral Wall: ? No hernia.? Abdominal Nodes:? No retroperitoneal or mesenteric adenopathy by size criteria.? Vessels:? Aorta and inferior vena cava are normal in size.? ? PELVIS: Pelvic Organs: The uterus appears normal for age.? No adnexal masses are seen.? The previously seen right ovarian cyst has resolved. Bladder:? Unremarkable.? ? Pelvic Nodes: No enlarged lymph nodes.? Miscellaneous: No inguinal hernias are seen. ? ? ? Bones:? Unremarkable.? IMPRESSION:? ? A cause of left lower quadrant pain is not identified.? ? Negative for diverticulitis. ? No left adnexal masses are seen. ? Incidental note is made of: Enlarged, fatty liver.? ? Dictated by: Dav Palomares M.D. on 01/27/2022 at 15:23 ? ? Approved by: Dav Palomares M.D. on 01/27/2022 at 15:25 ? MDM Narrative Medical decision making narrative: This is a pleasant 41-year-old female who presents to the emergency department today for ongoing abdominal pain which is worse every time she eats with nausea, loose stool for the last 4 weeks, and gassy abdominal pressure in her lower abdomen primarily on the right. Patient has been afebrile, without hematuria or blood in her stool, recently started on omeprazole 5 days ago, her GERD symptoms have improved. She is pending follow-up with Gastroenterology, her primary care provider has referred her. Today her lab work is grossly unremarkable, no leukocytosis, no gross electrolyte abnormality, lipase of 106, was negative, UA was negative for infection or blood, liver enzymes are not elevated, total bilirubin is 0.3. Abdominal ultrasound shows increased hepatic echogenicity and likely fatty infiltration of the liver, no cholelithiasis or findings to suggest choledocholithiasis or acute cholecystitis. Common hepatic duct measures 5.7 mm in diameter, common bile duct was not imaged, gallbladder wall measures 2.2 mm in diameter, no stones, sludge, pericholecystic fluid, or sonographic Lucas sign. Abdomen and pelvis obtained for further explanation of her right lower quadrant pain. She has not had an abdominal CT did since this pain has started. CT abdomen pelvis an enlarged fatty liver, who was negative for all other causes for pain. Negative for diverticulitis, no adnexal masses, previous ovarian cyst has resolved, no lymph nodes. Patient endorses feeling of gas, pressure, she endorses history of depression, has had irritable bowels for approximately 1 month with frequent diarrhea. No emergent or surgical causes for her symptoms were found today on workup. Patient was given a prescription for simethicone for the gas, and tramadol for her pain. She states that the pain is why she came in and she is not getting rest due to the pain. I encouraged light activity, hydration, nutritious foods, avoiding sugar, dairy, simple carbohydrates, and possibly gluten to see if this is possible cause. I recommend she follow-up with her primary care provider, she has an appointment pending, if no other causes to her symptoms are found, and her stool is not infectious, this may be IBS, colitis no diverticulitis or diverticulosis today, gastroenteritis, infectious diarrhea, ovarian cyst, or other. No peritoneal signs on abdominal exam. Patient remains p.o. tolerant. Serial abdominal exam without increase in abdominal pain. Given history and exam, low suspicion for acute abdominal process, such as acute cholecystitis, pancreatitis, perforated viscus, atypical appendicitis, colitis, diverticulitis or torsion. Extensive conversation about ER return precautions and need for close follow-up. Patient is appropriate and amenable to discharge home. Vital signs are stable on repeat examination is unremarkable. Patient has been informed of results. Patient has been given strict return to ER precautions for any new or worsening symptoms. Patient understands to follow up closely with outpatient providers as instruct ed. Patient understands plan and agrees to discharge home. All questions and concerns answered at this time. <Abraham Lomas DO - Last Filed: 01/29/22 07:14> Lab Data Labs: Lab Results 01/27/22 01/27/22 Range/Units 15:10 15:10 WBC 6.7 (4.5-11.0) X10^3/uL RBC 4.08 (4.0-5.2) X10^6/uL Hgb 12.0 (12.0-16.0) g/dL Hct 34.7 L (36-46) % MCV 85.3 (80-100) fL MCH 29.6 (26-34) PG MCHC 34.7 (30-36) % RDW 12.8 (11.6-14.8) % Plt Count 214 (150-400) X10^3/uL Neut % (Auto) 58.7 (50-75) % Lymph % (Auto) 30.7 (25-40) % [place] % (Auto) 8.0 (3-14) % Eos % (Auto) 1.9 L (2-4) % Baso % (Auto) 0.7 (0-2) % Neut # (Auto) 3900 (0583-4208) /uL Lymph # (Auto) 2100 (3649-7779) /uL [place] # (Auto) 500 (0-900) /uL Eos # (Auto) 100 (0-450) /uL Baso # (Auto) 100 (0-100) /uL Sodium 141 (137-145) mmol/L Potassium 3.9 (3.4-5.1) mmol/L Chloride 109 H (98-107) mmol/L Carbon Dioxide 21 L (22-32) mmol/L BUN 10 (7-17) mg/dL Creatinine 0.74 (0.52-1.04) mg/dL Estimated GFR > 60 (>60) mL/min BUN/Creatinine Ratio 13.5 (6-22) Glucose 99 (70-100) mg/dL Calcium 8.7 (8.4-10.2) mg/dL Total Bilirubin 0.3 (0.2-1.3) mg/dL AST 26 (14-36) IU/L ALT 16 (<35) IU/L Alkaline Phosphatase 44 (38-126) U/L Total Protein 7.4 (6.3-8.2) g/dL Albumin 4.2 (3.5-5.0) g/dL Globulin 3.2 (1.7-4.1) g/dL Albumin/Globulin Ratio 1.3 (1.0-2.8) Lipase 106 (23-300) U/L Point of care testing: Point of Care Testing Test Results Negative Urine Dip Bedside Urine Glucose Negative Bedside Urine Bilirubin - Negative Bedside Urine Ketone - Negative Urine Specific [employer] [place] 1.025 Bedside Urine Occult Blood - Negative Bedside Urine pH 6.0 Bedside Urine Protein - Negative Bedside Urine Urobilinogen 0.2 Bedside Urine Nitrite - Negative Bedside Urine Leukocytes - Negative Esterase Discharge Plan Departure Patient Disposition: Home Clinical Impression: Abdominal pain, Diarrhea Instructions: Diarrhea, DI for Abdominal Pain-Adult, DI for Dyspepsia Activity Restrictions/Additional Instructions: *You have been diagnosed with abdominal pain without any abnormal findings on your lab work, ultrasound, or CT scan. The CT scan shows that you have fatty infiltration of your liver and it is enlarged but the lab work is reassuring that everything is functioning well. We did not receive a stool sample yet and if we did I would run a GI panel to look for other infectious causes of diarrhea. Have a low suspicion for infection as you do not have an elevated white count, you have not had fevers, and the rest of your labs look great. Please focus on hydration, healthy nutritious and fresh fruits and vegetables, low processed food, decreasing your stress level and focusing on your mental and physical health. Please follow-up with your primary care provider, it might be worth considering changing your fluoxetine dose if your GI workup is negative for abnormality. Do the best you can as far as stress and balancing life things. Your guts are sensitive and if you are going through stressful s ituations, this will also likely be irritable. Continue taking your omeprazole daily until you follow-up with GI. If you notice that your still having heartburn and this is persistent, it is acceptable to start doing twice a day dosing but please consult your primary care provider or GI for this so they are aware. For any worsening pain, fever, vomiting, chills, please return to the emergency department for another evaluation. I have sent simethicone chewable tabs to [facility] this is for gas, and tramadol pain pills to [facility] as well. *What to do: *Please continue to take your regular medications as directed. [x ] New medication prescriptions sent to your pharmacy: [[facility] ] [ ] New medication written as a paper prescription [ ] No new medications given *Please follow up with your primary care provider in 2-3 days, call for an appointment. Let them know you were seen in the Emergency Department and that we asked that you be seen for follow-up. We will electronically transmit a record of today's note if your PCP is in our system *If you do not have a primary care provider please contact [phone] to establish care with one of the [facility] primary care providers. *Return to Emergency Department if you should have any new, worsening or concerning symptoms, such as [fever greater than 101F, chills, worsening pain, persistent vomiting or other bothersome symptoms] Prescriptions: New tramadol 50 mg tablet 50 mg PO BID PRN (Reason: pain) Qty: 14 0RF simethicone 80 mg tablet,chewable 80 mg PO BID-QID PRN (Reason: abdominal distention) Qty: 30 0RF simethicone 125 mg tablet,chewable 125 mg PO TID PRN (Reason: abdominal distention) Qty: 20 0RF No Action fluoxetine 10 mg capsule 10 mg PO DAILY 0RF Label Comments: take 1 capsule by mouth once daily albuterol sulfate [ProAir HFA] 90 mcg/actuation HFA aerosol inhaler 2 puff inhalation Q4H PRN (Reason: Shortness Of Breath Or Wheezing) 0RF Label Comments: INHALE 2 PUFFS BY MOUTH EVERY 4 HOURS NEEDED FOR WHEEZING OR S...(REFER TO PRESCRIPTION NOTES). oxycodone-acetaminophen [Percocet] 5-325 mg tablet 1 tab PO Q6H PRN (Reason: pain) Qty: 10 0RF polymyxin B sulf-trimethoprim 10,000 unit- 1 mg/mL drops 1 drp EYE-BOTH Q3H Qty: 10 0RF amoxicillin 500 mg capsule 500 mg PO Q8H Qty: 12 0RF amoxicillin-pot clavulanate [Augmentin] 875-125 mg tablet 1 tab PO Q12H Qty: 14 0RF prednisone 20 mg tablet 40 mg PO DAILY Qty: 8 0RF tramadol 50 mg tablet 50 mg PO Q6H PRN (Reason: pain) Qty: 12 0RF methylprednisolone 4 mg tablets,dose pack See Rx Instructions .ROUTE .COMPLEX Qty: 21 0RF Rx Instructions: orally per package directions Referrals: Sherrill Henry, [facility] [Primary Care Provider] - <Abraham Lomas DO - Last Filed: 01/29/22 07:14> Cosign ED Attending Cosignature Attestation: Dr Lomas Co-Sign Statement: I was available for consultation during this patient's emergency department visit. This chart is signed by myself for a dministrative purposes only. I did not have direct contact with this patient during this visit. They were seen independently by the APC.
[2022-01-27 15:57] VITALS: O2SAT 95
--- NOTE | 2022-01-27 15:57 | DI.CT.S_ITS ---
PROCEDURE: CT ABDOMEN PELVIS W CON INDICATIONS: lower quadrant abdominal pain, diverticulosis? RUQ pain TECHNIQUE: After the administration of oral and IV contrast, axial sections were acquired from the lung bases to the pubic symphysis. Coronal and sagittal reformats were performed. For radiation dose reduction, the following was used: automated exposure control, adjustment of mA and/or kV according to patient size. COMPARISON: [facility], US, US ABDOMEN LIMITED, 01/27/2022, 14:31. [facility], CT, CT ABDOMEN PELVIS WITH CONTRAST, 02/07/2019, 13:23. FINDINGS: Image quality: Excellent. Lung bases: Unremarkable. Heart: No significant findings. ABDOMEN: Liver: An enlarged, fatty liver can be seen. No suspicious liver lesions are seen. Gallbladder: Unremarkable. Biliary ducts: Unremarkable. Pancreas: Unremarkable. Spleen: Unremarkable. Adrenal Glands: Unremarkable. Kidneys and Ureters: Unremarkable. Stomach and Bowel: In this patient with this given history, scrutiny is given to the left lower quadrant. No significant diverticular formation can be seen. No focal left lower quadrant inflammatory change is seen. Stomach, small bowel loops, and colon are unremarkable. Peritoneum: No abnormal intraperitoneal fluid. No free air. Ventral Wall: No hernia. Abdominal Nodes: No retroperitoneal or mesenteric adenopathy by size criteria. Vessels: Aorta and inferior vena cava are normal in size. PELVIS: Pelvic Organs: The uterus appears normal for age. No adnexal masses are seen. The previously seen right ovarian cyst has resolved. Bladder: Unremarkable. Pelvic Nodes: No enlarged lymph nodes. Miscellaneous: No inguinal hernias are seen. Bones: Unremarkable. IMPRESSION: A cause of left lower quadrant pain is not identified. Negative for diverticulitis. No left adnexal masses are seen. Incidental note is made of: Enlarged, fatty liver. Dictated by: Dav Palomares M.D. on 01/27/2022 at 15:23 Approved by: Dav Palomares M.D. on 01/27/2022 at 15:25
[2022-01-27 15:58] VITALS: BP 134/65; PULSE 70; O2SAT 99
[2022-01-27 16:00] VITALS: PULSE 66; O2SAT 99
[2022-01-27 16:01] LABS: Alanine Aminotransferase 16 IU/L (<35); Albumin 4.2 g/dL (3.5-5.0); Albumin Globulin Ratio 1.3 (1.0-2.8); Alkaline Phosphatase 44 U/L (38-126); Aspartate Aminotransferase 26 IU/L (14-36); BUN Creatinine Ratio 13.5 (6-22); Bilirubin Total 0.3 mg/dL (0.2-1.3); Blood Urea Nitrogen 10 mg/dL (7-17); Calcium 8.7 mg/dL (8.4-10.2); Carbon Dioxide 21 mmol/L (22-32); Chloride 109 mmol/L (98-107); Estimated Glomerular Filt Rate > 60 mL/min (>60); Globulin 3.2 g/dL (1.7-4.1); Glucose 99 mg/dL (70-100); HEMOLYSIS < 15 (0-50); Lipase 106 U/L (23-300); Potassium 3.9 mmol/L (3.4-5.1); Sodium 141 mmol/L (137-145); Total Protein 7.4 g/dL (6.3-8.2)
[2022-01-27] MEDS: ONDANSETRON 4 MG/2 ML INJ IV (16:24)
[2022-01-27] MEDS: HYDROCODONE/ACET 5/325 TABLET 1 TAB PO (17:15)
[2022-01-27] MEDS: MAG HYDROX/ALUM/SIMETH 30 ML UDC PO (17:15)
== END 2022-01-27 17:24 | disposition home or self-care (01) ==
PROVIDERS: Emergency Medicine; Emergency Provider Nurse Practitioner Critical Care Medicine; PCP Registered Nurse General Practice
DX: R10.31 Right lower quadrant pain (principal); R19.7 Diarrhea, unspecified; R11.2 Nausea with vomiting, unspecified
CPT/HCPCS: 36415; 74177; 76705; 80053; 81003; 81025; 83690; 85025; 96374; 99284; 99285; J2405

== ENCOUNTER 2022-02-21 17:24 | Emergency (ER) | payer OTHER, MEDICAID, SELFPAY ==
[2022-02-21 17:43] VITALS: BP 139/87; PULSE 88; RESP 18; TEMP 36.9; O2SAT 98; BMI 45.3
--- NOTE | 2022-02-21 17:47 | DI.RAD.S_ITS ---
PROCEDURE: XR CHEST 1V INDICATIONS: chest pain TECHNIQUE: One view of the chest was acquired. COMPARISON: [facility], CR, XR CHEST 1V, 06/13/2021, 17:48. FINDINGS: Surgical changes and devices: None. Lungs and pleura: Lungs are clear. No pleural effusions or pneumothorax. Mediastinum: Mediastinal contours appear normal. Heart size is normal. Bones and chest wall: No suspicious bony lesions. Overlying soft tissues appear unremarkable. IMPRESSION: No acute cardiopulmonary disease process. Dictated by: Kinza Benavides MD, PhD on 02/21/2022 at 18:27 Approved by: Kinza Benavides MD, PhD on 02/21/2022 at 18:28
--- NOTE | 2022-02-21 18:01 | ED_ITS ---
HPI - Chest Pain General Chief Complaint: Chest Pain Stated Complaint: CHEST PRESSURE PAIN HARD TO BREATH HEART BURN DIZZ Time Seen by Provider: 02/21/22 18:01 Source: patient Mode of arrival: Ambulatory Limitations: no limitations History of Present Illness HPI narrative: 41-year-old female former smoker with history of asthma and relatively recent COVID presents with a chief complaint of a few days, if not longer of burning in her lungs and chest pressure the pain to get worse tonight. Additionally, it gets worse when she lays flat. She has some nausea but denies any vomiting. She has no ongoing fever. She denies runny nose or sore throat. She states it feels, and wanes like her reflux. She denies any specific abdominal pain, constipation or diarrhea. She has no dysuria, frequency or urgency. She does have the sensation of shortness of breath when the burning sets in Related Data Home Medications Medication Instructions Recorded Confirmed albuterol sulfate 90 mcg/actuation 2 puff INHALATION Q4H PRN 11/18/19 11/18/19 aerosol inhaler (ProAir HFA) fluoxetine 10 mg capsule 10 mg PO DAILY 11/18/19 11/18/19 Previous Rx's Medication Instructions Recorded oxycodone-acetaminophen 5 mg-325 1 tab PO Q6H PRN #10 tab 12/17/19 mg tablet (Percocet) amoxicillin 875 mg-potassium 1 tab PO Q12H #14 tab 12/20/19 clavulanate 125 mg tablet (Augmentin) prednisone 20 mg tablet 40 mg PO DAILY #8 tab 12/20/19 tramadol 50 mg tablet 50 mg PO Q6H PRN #12 tab 12/20/19 polymyxin B sulfate 10,000 1 drp EYE-BOTH Q3H #10 ml 04/02/21 unit-trimethoprim 1 mg/mL eye drops methylprednisolone 4 mg tablets in See Rx Instructions .ROUTE 06/13/21 a dose pack .COMPLEX #21 ea amoxicillin 500 mg capsule 500 mg PO Q8H #12 cap 10/31/21 simethicone 125 mg chewable tablet 125 mg PO TID PRN #20 tab 01/27/22 simethicone 80 mg chewable tablet 80 mg PO BID-QID PRN #30 tab 01/27/22 tramadol 50 mg tablet 50 mg PO BID PRN #14 tab 04/28/22 ondansetron 4 mg disintegrating 4 mg PO TID-QID PRN #10 tab 02/21/22 tablet pantoprazole 40 mg tablet,delayed 40 mg PO DAILY #30 tab 02/21/22 release (Protonix) Allergies Allergy/AdvReac Type Severity Reaction Status Date / Time naproxen [From NAPROSYN] Allergy Severe anaphylactic Verified 01/27/22 14:22 - PT STATES MOTRIN IS OK olive oil [OLIVE OIL] Allergy Unknown Verified 01/27/22 14:22 Sulfa (Sulfonamide Allergy Unknown Swelling Verified 01/27/22 14:22 Antibiotics) of [SULFA (SULFONAMIDE Lip/Tongue/Throat ANTIBIOTICS)] Review of Systems Review of Systems Narrative: GENERAL: see HPI HEENT: See HPI RESPIRATORY: see HPI CARDIOVASCULAR: Denies chest pain, palpitations, orthopnea, edema, GASTROINTESTINAL: see HPI : Denies dysuria, frequency, incontinence, hematuria, urinary retention. MUSCULOSKELETAL: denies weakness, joint pain, or bony pain SKIN: Denies rash, skin lesions, or other NEUROLOGIC: Denies weakness, headache, numbness, change in speech, confusion, seizures, incoordination. PSYCHIATRIC: No concerning psychosocial issues. 12 point review of systems is negative except for those stated above Patient History Social History Smoking Status: Former smoker Smoking Status: Former smoker tobacco type: cigarettes alcohol intake frequency: holidays/special occasions only Substance Use Type: does not use Exam Narrative Exam Narrative: GENERAL: [41] year old patient appears stated age. Well-developed patient, in mild distress. HEAD: Atraumatic. Normocephalic. EYES: Pupils equal round and reactive. Extraocular motions intact. No scleral icterus. No injection or drainage. ENT: Nose without bleeding, purulent drainage. Throat without erythema, tonsillar hypertrophy or exudate. Airway patent. NECK: Trachea midline. Non tender CARDIOVASCULAR: Regular rate and rhythm without murmurs, gallops, or rubs. RESPIRATORY: Clear to auscultation. Breath sounds equal bilaterally. No wheezes, rales, or rhonchi. GASTROINTESTINAL: Abdomen soft,mild epigastic pain, nondistended. Bowel sounds present EXTREMITIES: No edema or joint tenderness. BACK: Nontender without deformity or crepitance. No flank tenderness. NEURO: AOx3. SKIN: No rash or erythema of visible areas Initial Vital Signs Initial Vital Signs: Vital Signs Temperature 98.5 F 02/21/22 17:43 Pulse Rate 88 02/21/22 17:43 Respiratory Rate 18 02/21/22 17:43 Blood Pressure 139/87 02/21/22 17:43 Pulse Oximetry 98 02/21/22 17:43 Course Orders Ordered: Discontinued Medications Al Hydrox/Mg Hydrox/Simethicone 20 ml/ Lidocaine HCl 15 ml 0 ml PO NOW ONE Stop: 02/21/22 19:48 Last Admin: 02/21/22 19:51 Dose: 35 ml Documented by: [email or web address] Reevaluation(s) Reevaluation #1: Patient has a near complete resolution of symptoms after above-stated therapies Vital Signs Vital signs: Vital Signs - 8 hr 02/21/22 17:43 02/21/22 20:24 Temperature 98.5 F Pulse Rate 88 69 Respiratory Rate 18 18 Blood Pressure 139/87 149/89 H Pulse Oximetry 98 98 MDM - Chest Pain Lab Data Result diagrams: 02/21/22 18:20 02/21/22 18:20 Labs: Lab Results 02/21/22 02/21/22 02/21/22 Range/Units 18:20 18:20 18:20 WBC 6.9 (4.5-11.0) X10^3/uL RBC 4.34 (4.0-5.2) X10^6/uL Hgb 12.9 (12.0-16.0) g/dL Hct 36.7 (36-46) % MCV 84.6 (80-100) fL MCH 29.8 (26-34) PG MCHC 35.3 (30-36) % RDW 12.6 (11.6-14.8) % Plt Count 267 (150-400) X10^3/uL Neut % (Auto) 61.2 (50-75) % Lymph % (Auto) 27.9 (25-40) % [place] % (Auto) 8.6 (3-14) % Eos % (Auto) 1.5 L (2-4) % Baso % (Auto) 0.8 (0-2) % Neut # (Auto) 4200 (5073-0389) /uL Lymph # (Auto) 1900 (2638-6586) /uL [place] # (Auto) 600 (0-900) /uL Eos # (Auto) 100 (0-450) /uL Baso # (Auto) 100 (0-100) /uL ESR 16 (0-20) MM/HR D-Dimer (<230) ng/mL Sodium 136 L (137-145) mmol/L Potassium 4.0 (3.4-5.1) mmol/L Chloride 104 (98-107) mmol/L Carbon Dioxide 23 (22-32) mmol/L BUN 10 (7-17) mg/dL Creatinine 0.72 (0.52-1.04) mg/dL Estimated GFR > 60 (>60) mL/min BUN/Creatinine Ratio 13.9 (6-22) Glucose 109 H (70-100) mg/dL Calcium 9.3 (8.4-10.2) mg/dL Magnesium 1.7 (1.6-2.3) mg/dL Total Bilirubin 0.4 (0.2-1.3) mg/dL AST 27 (14-36) IU/L ALT 15 (<35) IU/L Alkaline Phosphatase 53 (38-126) U/L Total Creatine Kinase 38 (30-135) U/L CK-MB (CK-2) TNP CK-MB (CK-2) Rel Index TNP Troponin I < 0.012 (0.01-0.034) ng/mL C-Reactive Protein (<1.0) mg/dL Total Protein 7.5 (6.3-8.2) g/dL Albumin 4.3 (3.5-5.0) g/dL Globulin 3.2 (1.7-4.1) g/dL Albumin/Globulin Ratio 1.3 (1.0-2.8) Lipase 123 (23-300) U/L Procalcitonin (<0.5) ng/mL SARS-CoV-2 (PCR) (Negative) Influenza A (RT-PCR) (NEGATIVE) Influenza B (RT-PCR) (NEGATIVE) 02/21/22 02/21/22 02/21/22 Range/Units 18:20 18:20 18:57 WBC (4.5-11.0) X10^3/uL RBC (4.0-5.2) X10^6/uL Hgb (12.0-16.0) g/dL Hct (36-46) % MCV (80-100) fL MCH (26-34) PG MCHC (30-36) % RDW (11.6-14.8) % Plt Count (150-400) X10^3/uL Neut % (Auto) (50-75) % Lymph % (Auto) (25-40) % [place] % (Auto) (3-14) % Eos % (Auto) (2-4) % Baso % (Auto) (0-2) % Neut # (Auto) (8730-5303) /uL Lymph # (Auto) (9871-3259) /uL [place] # (Auto) (0-900) /uL Eos # (Auto) (0-450) /uL Baso # (Auto) (0-100) /uL ESR (0-20) MM/HR D-Dimer < 200 (<230) ng/mL Sodium (137-145) mmol/L Potassium (3.4-5.1) mmol/L Chloride (98-107) mmol/L Carbon Dioxide (22-32) mmol/L BUN (7-17) mg/dL Creatinine (0.52-1.04) mg/dL Estimated GFR (>60) mL/min BUN/Creatinine Ratio (6-22) Glucose (70-100) mg/dL Calcium (8.4-10.2) mg/dL Magnesium (1.6-2.3) mg/dL Total Bilirubin (0.2-1.3) mg/dL AST (14-36) IU/L ALT (<35) IU/L Alkaline Phosphatase (38-126) U/L Total Creatine Kinase (30-135) U/L CK-MB (CK-2) CK-MB (CK-2) Rel Index Troponin I (0.01-0.034) ng/mL C-Reactive Protein 1.5 H (<1.0) mg/dL Total Protein (6.3-8.2) g/dL Albumin (3.5-5.0) g/dL Globulin (1.7-4.1) g/dL Albumin/Globulin Ratio (1.0-2.8) Lipase (23-300) U/L Procalcitonin 0.04 (<0.5) ng/mL SARS-CoV-2 (PCR) Positive H (Negative) Influenza A (RT-PCR) Flu a negative (NEGATIVE) Influenza B (RT-PCR) Flu b negative (NEGATIVE) Imaging Data Chest x-ray: Radiologist's Impression: Chart Viewer Diagnostics Subcategory All Activity ??:?? All Time ??:?? All Subcategories Filter Laboratory Imaging Microbiology Pathology Blood Bank Tests Cardiovascular Other Specialty DATE TYPE STATUS REF RANGE/AUTHOR Hx Today 17:47 Chest X-Ray Signed Kinza Benavides 01/27/22 15:57 Abdomen/Pelvis CT Signed Dav Palomares 01/27/22 14:29 Abdomen Ultrasound Signed Genie Cerda 06/13/21 17:46 Chest X-Ray Signed Tye Moya 12/20/19 00:[address] Signed Jose Martin Sinclair 09/25/19 22:02 Wrist X-Ray Signed Epifanio Bennett 01/25/19 11:48 Abdomen/Pelvis CT Signed Epifanio Bennett 01/25/19 11:05 Pelvis Ultrasound Signed Dalton De León 12/07/17 06:04 Radiology - Historical ? 10/30/17 13:55 Radiology - Historical ? 10/30/17 13:55 Radiology - Historical ? 07/10/17 15:46 Radiology - Historical ? Mcdonald Elva ED 41, F?1980 MRN#? [id number] [facility],?Main ED??R08?? 162.56cm 119.748kg BMI: 45.3kg/m? Chest Pain Acc#? [id number] Resus Status Not Ordered No Hx Avail Special Indicators No Data to Display Home Meds Not Confirmed Prescription Monitoring Program Total 60 MME/Day Unconfirmed MEDICATIONS (INSTRUCTIONS) LAST TAKEN Active ??albuterol sulfate [ProAir HFA] ??2 [id number] ??amoxicillin ??500 eyZAH5W#12 cap ??amoxicillin-pot clavulanate [Augmentin] ??1 [id number]#14 tab *Product no longer available ??fluoxetine ??10 mgPODAILY ??methylprednisolone ??See Rx Instructions.ROUTE.COMPLEX#21 ea ??oxycodone-acetaminophen [Percocet] ??1 [id number]#10 tab 30 MME/Day ??polymyxin B sulf-trimethoprim ??1 drpEYE-HZXXT0B#10 ml ??prednisone ??40 mgPODAILY#8 tab ??simethicone ??125 mgPOTIDPRN#20 tab ??simethicone ??80 mgPOBID-QIDPRN#30 tab ??tramadol ??50 zfLDS3IDFX#12 tab 20 MME/Day ??tramadol ??50 mgPOBIDPRN#14 tab 10 MME/Day Allergies naproxen (From NAPROSYN) anaphylactic - PT STATES MOTRIN IS OK olive oil (OLIVE OIL) Sulfa (Sulfonamide Antibiotics) (SULFA (SULFONAMIDE ANTIBIOTICS)) Swelling of Lip/Tongue/Throat Problems ? ONSET URI (upper respiratory infection) Status post repeat low transverse section Status post tubal ligation at time of delivery, current hosp 39 weeks gestation of Encounter for supervision of other normal , third trimester History of 2 sections Spasm of cervical paraspinous muscle Chest pain, atypical Abdominal pain, left lower quadrant Nausea & vomiting Viral gastroenteritis Episode of syncope Abdominal pain Vital Signs Today 17:43 BP 139/87? Pulse 88? Resp 18? Temp 98.5 F? O2 Sat 98? Delivery Room Air? Diagnostics Reports Elva Mcdonald L??41??F??1980 ? Allergy/Adv: naproxen, olive oil, Sulfa (Sulfonamide Antibiotics) (More??) Close Chest X-Ray (Signed) Kinza Benavides - 02/21/22 Abdomen/Pelvis CT (Signed) Dav Palomares - 01/27/22 Abdomen Ultrasound (Signed) Genie Cerda - 01/27/22 Chest X-Ray (Signed) Tye Moya - 06/13/[address] (Signed) Jose Martin Sinclair - 12/20/19 Wrist X-Ray (Signed) Epifanio Bennett - 09/25/19 Abdomen/Pelvis CT (Signed) Epifanio Bennett - 01/25/19 Pelvis Ultrasound (Signed) Dalton De León - 01/25/19 Radiology - Historical 12/07/17 Radiology - Historical 10/30/17 Radiology - Historical 10/30/17 Radiology - Historical 07/10/17 Launch?[address] [address] XRay Report Signed Patient: Elva Mcdonald MR#: [id number] : 1980 Acct:[id number] Age/Sex: 41 / F Date of Service: 02/21/22 Loc: ED Accession Number: [id number] ?? Procedure: XR chest 1V Ordering Provider: Alexia Clancy MD PROCEDURE:? XR CHEST 1V ? INDICATIONS:? chest pain ? TECHNIQUE:? One view of the chest was acquired.? ? COMPARISON:? [facility], , XR CHEST 1V, 06/13/2021, 17:48. ? FINDINGS:? ? Surgical changes and devices:? None.? ? Lungs and pleura:? Lungs are clear.? No pleural effusions or pneumothorax.? ? Mediastinum:? Mediastinal contours appear normal.? Heart size is normal.? ? Bones and chest wall:? No suspicious bony lesions.? Overlying soft tissues appear unremarkable.? ? IMPRESSION:? No acute cardiopulmonary disease process. ? ? Dictated by: Kinza Benavides MD, PhD on 02/21/2022 at 18:27 ? ? Approved by: Kinza Benavides MD, PhD on 02/21/2022 at 18:28? MDM Narrative Medical decision making narrative: 41-year-old female with very reassuring history and physical exam and unremarkable workup including labs, imaging. She has nausea, burning epigastric discomfort that is associated with weakness most nights, and when she lays flat. She has a GI history and is actually scheduled to see a permastone mechanic but had to cancel her most recent appointment as she was COVID positive. Multiple diagnoses considered including pancreatitis or biliary disease as well as bowel obstruction, cardiac ischemia pulmonary embolism among others. These more significant diagnoses are thought to be unlikely given her history and physical as well as labs. She felt significant if not complete resolution of symptoms after above-stated therapies. She is given extensive return precautions and questions have been answered to her apparent satisfaction Discharge Plan Departure Patient Disposition: Home Clinical Impression: Atypical chest pain, Nausea, Dyspepsia Instructions: Indigestion, DI for Atypical Chest Pain, DI for Nausea -- Adult Activity Restrictions/Additional Instructions: *You have been diagnosed with [atypical chest pain and dyspepsia. As we discussed your history, physical exam, labs, imaging and response to therapies is very reassuring and there is no indication of any significant diagnosis such as heart attack, blood clot, a specific or immediate intervention *What to do: *Please continue to take your regular medications as directed. [ x] New medication prescriptions sent to your pharmacy: [[facility] ] [ ] New medication written as a paper prescription [ ] No new medications given *Please follow up with your primary care provider in 2-3 days, call for an appointment. Let them know you were seen in the Emergency Department and that we ask that you be seen in follow up. We will electronically transmit a record of today's note if your PCP is in our system * please consider a clear liquid diet for the next 24-48 hours and then slowly advance as tolerated. *Return to Emergency Department if you should have any new, worsening or concerning symptoms, such as [fever greater than 101 F, shaking chills, worsening pain, persistent vomiting or other bothersome symptoms] Prescriptions: New pantoprazole [Protonix] 40 mg tablet,delayed release (DR/EC) 40 mg PO DAILY Qty: 30 0RF ondansetron 4 mg tablet,disintegrating 4 mg PO TID-QID PRN (Reason: nausea and vomiting) Qty: 10 0RF No Action fluoxetine 10 mg capsule 10 mg PO DAILY 0RF Label Comments: take 1 capsule by mouth once daily albuterol sulfate [ProAir HFA] 90 mcg/actuation HFA aerosol inhaler 2 puff inhalation Q4H PRN (Reason: Shortness Of Breath Or Wheezing) 0RF Label Comments: INHALE 2 PUFFS BY MOUTH EVERY 4 HOURS NEEDED FOR WHEEZING OR S...(REFER TO PRESCRIPTION NOTES). oxycodone-acetaminophen [Percocet] 5-325 mg tablet 1 tab PO Q6H PRN (Reason: pain) Qty: 10 0RF polymyxin B sulf-trimethoprim 10,000 unit- 1 mg/mL drops 1 drp EYE-BOTH Q3H Qty: 10 0RF amoxicillin 500 mg capsule 500 mg PO Q8H Qty: 12 0RF amoxicillin-pot clavulanate [Augmentin] 875-125 mg tablet 1 tab PO Q12H Qty: 14 0RF prednisone 20 mg tablet 40 mg PO DAILY Qty: 8 0RF tramadol 50 mg tablet 50 mg PO Q6H PRN (Reason: pain) Qty: 12 0RF methylprednisolone 4 mg tablets,dose pack See Rx Instructions .ROUTE .COMPLEX Qty: 21 0RF Rx Instructions: orally per package directions tramadol 50 mg tablet 50 mg PO BID PRN (Reason: pain) Qty: 14 0RF simethicone 80 mg tablet,chewable 80 mg PO BID-QID PRN (Reason: abdominal distention) Qty: 30 0RF simethicone 125 mg tablet,chewable 125 mg PO TID PRN (Reason: abdominal distention) Qty: 20 0RF Referrals: Sherrill Henry, [employer] [Primary Care Provider] -
[2022-02-21 18:33] LABS: Add Manual Diff / Slide Review NO; Basophils Absolute Auto 100 /uL (0-100); Basophils Percent Auto 0.8 % (0-2); Eosinophils Absolute Auto 100 /uL (0-450); Eosinophils Percent Auto 1.5 % (2-4); Hematocrit 36.7 % (36-46); Hemoglobin 12.9 g/dL (12.0-16.0); Lymphocytes Absolute Auto 1900 /uL (1100-4500); Lymphocytes Percent Auto 27.9 % (25-40); Mean Corpuscular HGB Conc 35.3 % (30-36); Mean Corpuscular Hemoglobin 29.8 PG (26-34); Mean Corpuscular Volume 84.6 fL (80-100); Monocytes Absolute Auto 600 /uL (0-900); Monocytes Percent Auto 8.6 % (3-14); Neutrophils Absolute Auto 4200 /uL (1500-7000); Neutrophils Percent Auto 61.2 % (50-75); Platelet Count 267 X10^3/uL (150-400); Red Blood Cell Count 4.34 X10^6/uL (4.0-5.2); Red Cell Distribution Width 12.6 % (11.6-14.8); White Blood Cell Count 6.9 X10^3/uL (4.5-11.0)
[2022-02-21 18:54] LABS: Alanine Aminotransferase 15 IU/L (<35); Albumin 4.3 g/dL (3.5-5.0); Albumin Globulin Ratio 1.3 (1.0-2.8); Alkaline Phosphatase 53 U/L (38-126); Aspartate Aminotransferase 27 IU/L (14-36); BUN Creatinine Ratio 13.9 (6-22); Bilirubin Total 0.4 mg/dL (0.2-1.3); Blood Urea Nitrogen 10 mg/dL (7-17); Calcium 9.3 mg/dL (8.4-10.2); Carbon Dioxide 23 mmol/L (22-32); Chloride 104 mmol/L (98-107); Creatine Kinase 38 U/L (30-135); Estimated Glomerular Filt Rate > 60 mL/min (>60); Globulin 3.2 g/dL (1.7-4.1); Glucose 109 mg/dL (70-100); HEMOLYSIS < 15 (0-50); Lipase 123 U/L (23-300); Magnesium 1.7 mg/dL (1.6-2.3); Sodium 136 mmol/L (137-145); Total Protein 7.5 g/dL (6.3-8.2)
[2022-02-21 18:58] LABS: C-Reactive Protein Quant 1.5 mg/dL (<1.0)
[2022-02-21 19:01] LABS: Erythrocyte Sedimentation Rate 16 MM/HR (0-20)
[2022-02-21 19:05] LABS: Troponin I < 0.012 ng/mL (0.01-0.034)
[2022-02-21 19:11] LABS: Procalcitonin 0.04 ng/mL (<0.5)
[2022-02-21 19:13] LABS: D Dimer < 200 ng/mL (<230)
[2022-02-21 19:49] LABS: Influenza A - CEPHEID Flu A NEGATIVE (NEGATIVE); Influenza B - CEPHEID Flu B NEGATIVE (NEGATIVE)
[2022-02-21] MEDS: MAG HYDROX/ALUMINUM/SIMETH SUS 20 ML, LIDOCAINE VISCOUS 2% 15 ML PO (19:51)
[2022-02-21 19:58] LABS: COVID-19 CEPHEID PCR (VTM/NP) POSITIVE (Negative)
--- NOTE | 2022-02-21 20:10 | PC.NURSE ---
Pt reports gi cocktail helped decrease her pain.
[2022-02-21 20:24] VITALS: BP 149/89; PULSE 69; RESP 18; O2SAT 98
== END 2022-02-21 20:48 | disposition home or self-care (01) ==
PROVIDERS: Emergency Medicine; Emergency Provider Emergency Medicine; PCP Registered Nurse General Practice
DX: R07.89 Other chest pain (principal); R11.0 Nausea; R10.13 Epigastric pain; U07.1 COVID-19
CPT/HCPCS: 36415; 71045; 80053; 82550; 83690; 83735; 84145; 84484; 85025; 85379; 85651; 86140; 87635; 93005; 99283; C9803

== ENCOUNTER 2022-08-14 09:08 | Emergency (ER) | payer OTHER, MEDICAID, SELFPAY ==
[2022-08-14 09:33] VITALS: BP 130/76; PULSE 76; RESP 16; TEMP 36.3; O2SAT 99; BMI 44.6
--- NOTE | 2022-08-14 09:37 | DI.RAD.S_ITS ---
PROCEDURE: XR HAND RT MIN 3V INDICATIONS: hit hand on fence. 3/4th digit trauma TECHNIQUE: 3 views of the hand(s) acquired. COMPARISON: [facility], CR, XR WRIST RT MIN 3V, 09/25/2019, 21:59. FINDINGS: Bones: No fractures or dislocations. Carpal bones are normally aligned. No suspicious bony lesions. Soft tissues: No suspicious soft tissue calcifications. Bandaging material can be seen involving the 3rd and 4th finger. IMPRESSION: Negative for displaced fracture. Dictated by: Dav Palomares M.D. on 08/14/2022 at 9:08 Approved by: Dav Palomares M.D. on 08/14/2022 at 9:10
--- NOTE | 2022-08-14 10:31 | ED.GENADULT ---
HPI - General Adult General Chief complaint: Extremity Injury, Upper Stated complaint: thinks she broke fingers on RT hand Time Seen by Provider: 08/14/22 09:42 Mode of arrival: Ambulatory History of Present Illness HPI narrative: 42-year-old woman with no significant medical history went to swat her dog and ended up missing the dog and hitting her deck railing full force with tenderness to the right index and ring finger. She comes in for further evaluation Related Data Home Medications Medication Instructions Recorded Confirmed albuterol sulfate 90 mcg/actuation 2 puff inhalation Q4H PRN 11/18/19 11/18/19 aerosol inhaler (ProAir HFA) Shortness Of Breath Or Wheezing fluoxetine 10 mg capsule 10 mg PO DAILY 11/18/19 11/18/19 Previous Rx's Medication Instructions Recorded oxycodone-acetaminophen 5 mg-325 1 tab PO Q6H PRN pain #10 tabs 12/17/19 mg tablet (Percocet) amoxicillin 875 mg-potassium 1 tab PO Q12H #14 tabs 12/20/19 clavulanate 125 mg tablet (Augmentin) prednisone 20 mg tablet 40 mg PO DAILY #8 tabs 12/20/19 tramadol 50 mg tablet 50 mg PO Q6H PRN pain #12 tabs 12/20/19 polymyxin B sulfate 10,000 1 drp EYE-BOTH Q3H #10 mL 04/02/21 unit-trimethoprim 1 mg/mL eye drops methylprednisolone 4 mg tablets in See Rx Instructions PO .COMPLEX 06/13/21 a dose pack #21 ea amoxicillin 500 mg capsule 500 mg PO Q8H #12 caps 10/31/21 simethicone 125 mg chewable tablet 125 mg PO TID PRN abdominal 01/27/22 distention #20 tabs simethicone 80 mg chewable tablet 80 mg PO BID-QID PRN abdominal 01/27/22 distention #30 tabs tramadol 50 mg tablet 50 mg PO BID PRN pain #14 tabs 01/27/22 ondansetron 4 mg disintegrating 4 mg PO TID-QID PRN nausea and 02/21/22 tablet vomiting #10 tabs pantoprazole 40 mg tablet,delayed 40 mg PO DAILY #30 tabs 02/21/22 release (Protonix) Allergies Allergy/AdvReac Type Severity Reaction Status Date / Time naproxen [From NAPROSYN] Allergy Severe anaphylactic Verified 08/14/22 09:38 - PT STATES MOTRIN IS OK olive oil [OLIVE OIL] Allergy Unknown Verified 08/14/22 09:38 Sulfa (Sulfonamide Allergy Unknown Swelling Verified 08/14/22 09:38 Antibiotics) of [SULFA (SULFONAMIDE Lip/Tongue/Throat ANTIBIOTICS)] Review of Systems Review of Systems Narrative: Pertinent positive and negative findings as per HPI Remainder of review of systems is otherwise unremarkable for Constitutional: Fevers, chills, weakness ENT: No sore throat, neck pain, ear pain CV: Chest pain, palpitations, Respiratory: Cough, wheeze, dyspnea GI: Nausea, vomiting, diarrhea, Patient History Social History Smoking Status: Former smoker Smoking Status: Former smoker tobacco type: vaping alcohol intake frequency: holidays/special occasions only Substance Use Type: does not use Exam Initial Vital Signs Initial Vital Signs: Vital Signs Temperature 97.4 F L 08/14/22 09:33 Pulse Rate 76 08/14/22 09:33 Respiratory Rate 16 08/14/22 09:33 Blood Pressure 130/76 08/14/22 09:33 Pulse Oximetry 99 08/14/22 09:33 Oxygen Delivery Method 08/14/22 09:33 General: Alert appropriate in no acute distress Respiratory: Able to speak in full sentences, no obvious respiratory distress Skin: No obvious rashes, warm and dry Neurologic: Grossly intact no obvious asymmetries or abnormalities Psych: appropriate insight and affect, cooperative Extremity: Right hand is examined. She has some bruising developing on the dorsal aspect of both the index and ring finger. No significant swelling at this time. She is not able to flex DIP joints of either finger. Nail beds are normal. She is neurovascularly intact. PIP and metacarpal joints are within normal limits Course Orders Ordered: ED Orders 08/14/22 09:37 XR hand RT min 3V Stat Vital Signs Vital signs: Vital Signs - 8 hr 08/14/22 09:33 Temperature 97.4 F L Pulse Rate 76 Respiratory Rate 16 Blood Pressure 130/76 Pulse Oximetry 99 Oxygen Delivery Method Room Air Medical Decision Making Imaging Data XR fingers: Radiologist's Impression: FINDINGS:? ? Bones:? No fractures or dislocations.? Carpal bones are normally aligned.? No suspicious bony lesions.? ? Soft tissues:? No suspicious soft tissue calcifications.? Bandaging material can be seen involving the 3rd and 4th finger. ? ? IMPRESSION:? ? Negative for displaced fracture. ? ? Dictated by: Dav Palomares M.D. on 08/14/2022 at 9:08 ? ? MDM Narrative Medical decision making narrative: 42-year-old woman with injury to the index finger and middle finger. X-rays are unremarkable. No evidence of acute fractures or avulsion fractures. She does appear to have tendon injury with the D IP joints. She is splinted in slight flexion and instructed to follow-up with orthopedics. Questions are answered and she is safe for home discharge Discharge Plan Departure Patient Disposition: Home Clinical Impression: Finger injury Qualifiers: Encounter type: initial encounter Laterality: right Qualified Code(s): S69.91XA - Unspecified injury of right wrist, hand and finger(s), initial encounter Instructions: DI for Finger Flexor Tendon Injury Activity Restrictions/Additional Instructions: Thank you for coming in today Please keep your fingers in the splints and cole-taped until you have a chance to see the orthopedic surgeon. Please contact [facility] at [phone] let them know that you are in the emergency department and need a follow-up with concern for tendon injuries to your fingers. Using 400 mg of ibuprofen (2 uqha-dhi-cyomewk pills) and 1 Tylenol every 6 hours can be very helpful in controlling pain. If you find that you are getting worse or develop any new symptoms, please feel free to return to the emergency department for further evaluation. Prescriptions: No Action fluoxetine 10 mg capsule 10 mg PO DAILY Label Comments: take 1 capsule by mouth once daily albuterol sulfate [ProAir HFA] 90 mcg/actuation HFA aerosol inhaler 2 puff inhalation Q4H PRN (Reason: Shortness Of Breath Or Wheezing) Label Comments: INHALE 2 PUFFS BY MOUTH EVERY 4 HOURS NEEDED FOR WHEEZING OR S...(REFER TO PRESCRIPTION NOTES). oxycodone-acetaminophen [Percocet] 5-325 mg tablet 1 tab PO Q6H PRN (Reason: pain) Qty: 10 0RF polymyxin B sulf-trimethoprim 10,000 unit- 1 mg/mL drops 1 drp EYE-BOTH Q3H Qty: 10 0RF amoxicillin 500 mg capsule 500 mg PO Q8H Qty: 12 0RF amoxicillin-pot clavulanate [Augmentin] 875-125 mg tablet 1 tab PO Q12H Qty: 14 0RF prednisone 20 mg tablet 40 mg PO DAILY Qty: 8 0RF tramadol 50 mg tablet 50 mg PO Q6H PRN (Reason: pain) Qty: 12 0RF methylprednisolone 4 mg tablets,dose pack See Rx Instructions .ROUTE .COMPLEX Qty: 21 0RF Rx Instructions: orally per package directions tramadol 50 mg tablet 50 mg PO BID PRN (Reason: pain) Qty: 14 0RF simethicone 80 mg tablet,chewable 80 mg PO BID-QID PRN (Reason: abdominal distention) Qty: 30 0RF simethicone 125 mg tablet,chewable 125 mg PO TID PRN (Reason: abdominal distention) Qty: 20 0RF pantoprazole [Protonix] 40 mg tablet,delayed release (DR/EC) 40 mg PO DAILY Qty: 30 0RF ondansetron 4 mg tablet,disintegrating 4 mg PO TID-QID PRN (Reason: nausea and vomiting) Qty: 10 0RF Referrals: Miscellaneous,Doctor, MD [Primary Care Provider] -
[2022-08-14 11:07] VITALS: BP 117/69; PULSE 78; O2SAT 98
== END 2022-08-14 11:07 | disposition home or self-care (01) ==
PROVIDERS: Emergency Provider Emergency Medicine
DX: S69.91XA Unspecified injury of right wrist, hand and finger(s), initial encounter (principal); W22.8XXA Striking against or struck by other objects, initial encounter
CPT/HCPCS: 73130; 99281; 99283

== ENCOUNTER 2023-09-18 21:55 | Emergency (ER) | payer OTHER, MEDICAID, SELFPAY ==
[2023-09-18 22:10] VITALS: BP 156/110; PULSE 99; RESP 18; TEMP 36.9; O2SAT 98; BMI 42.9
[2023-09-18 22:39] LABS: Add Manual Diff / Slide Review NO; Basophils Absolute Auto 100 /uL (0-100); Basophils Percent Auto 0.7 % (0-2); Eosinophils Absolute Auto 100 /uL (0-450); Eosinophils Percent Auto 1.1 % (2-4); Hematocrit 39.7 % (36-46); Hemoglobin 13.8 g/dL (12.0-16.0); Lymphocytes Absolute Auto 2300 /uL (1100-4500); Lymphocytes Percent Auto 25.4 % (25-40); Mean Corpuscular HGB Conc 34.7 % (30-36); Mean Corpuscular Hemoglobin 29.7 PG (26-34); Mean Corpuscular Volume 85.6 fL (80-100); Monocytes Absolute Auto 500 /uL (0-900); Monocytes Percent Auto 5.5 % (3-14); Neutrophils Absolute Auto 6200 /uL (1500-7000); Neutrophils Percent Auto 67.3 % (50-75); Platelet Count 273 X10^3/uL (150-400); Red Blood Cell Count 4.65 X10^6/uL (4.0-5.2); Red Cell Distribution Width 13.1 % (11.6-14.8); White Blood Cell Count 9.2 X10^3/uL (4.5-11.0)
[2023-09-18 22:50] LABS: Acetaminophen < 10 ug/mL (10-30); Alanine Aminotransferase 30 IU/L (<35); Albumin 4.4 g/dL (3.5-5.0); Albumin Globulin Ratio 1.2 (1.0-2.8); Alkaline Phosphatase 53 U/L (38-126); Aspartate Aminotransferase 32 IU/L (14-36); BUN Creatinine Ratio 11.8 (6-22); Bilirubin Total 0.7 mg/dL (0.2-1.3); Blood Urea Nitrogen 9 mg/dL (7-17); Calcium 9.9 mg/dL (8.4-10.2); Carbon Dioxide 28 mmol/L (22-32); Chloride 105 mmol/L (98-107); Estimated Glomerular Filt Rate > 60 mL/min (>60); Ethanol (ETOH) < 10 mg/dL; Globulin 3.7 g/dL (1.7-4.1); Glucose 134 mg/dL (70-100); HEMOLYSIS < 15 (0-50); Potassium 3.3 mmol/L (3.4-5.1); Salicylate < 1.0 mg/dL (<20); Sodium 139 mmol/L (137-145); Total Protein 8.1 g/dL (6.3-8.2)
[2023-09-18 22:51] LABS: COVID19 -Nasal RAPID Negative (Negative)
[2023-09-18 23:17] LABS: UR Morphine/Opiate cutoff 300 Negative (Negative); Ur Creatinine Normal (Normal); Ur Specific Gravity Normal (Normal); Urine Amphetamines Negative (Negative); Urine Barbiturates Negative (Negative); Urine Benzodiazepines Negative (Negative); Urine Cocaine Negative (Negative); Urine MDMA Negative (Negative); Urine Methadone Negative (Negative); Urine Methamphetamines Negative (Negative); Urine Oxycodone Negative (Negative); Urine Phencyclidine Negative (Negative); Urine Tetrahydrocannabinol Negative (Negative); Urine Tricyclic Antidepressant Negative (Negative); Urine pH Normal (Normal)
[2023-09-18 23:18] LABS: Free T4, Direct Thyroxine 0.99 ng/dL (0.78-2.19)
[2023-09-18 23:32] LABS: Thyroid Stimulating Hormone 2.26 uIU/mL (0.47-4.68)
--- NOTE | 2023-09-19 02:17 | ED_ITS ---
HPI - Psych <Alexia Clancy MD - Last Filed: 09/24/23 00:11> General Chief Complaint: Psychiatric Symptoms Stated Complaint: mental health Time Seen by Provider: 09/19/23 01:21 Source: patient Mode of arrival: Ambulatory History of Present Illness HPI Narrative: 43-year-old woman with a history of anxiety, panic attack, OCD currently taking phentermine daily with a BMI of 43 presents feeling that she is spiraling out of control. She is with her who is supportive. They describe episodes where she feels that she is overwhelmed and will begin to spiral and typically can go for his short drive to refocus herself clear her thinking and returned to usual life. Today she is feeling significantly worse her notes increased anger and frustration behaviors patient actually drove for almost 8 hours today and still was not able to feel that she was calming herself. She reports that ?nothing matters?, ?I keep messing up ?, ?I do not understand why can not function?, ?I shouldn't be around ?. Through the course of the day the I shouldn't be around thoughts progress to active so suicidal ideation with the plans to use her car to simply have a accident. She found that there were ?others around so I did not want to do that?. She also notes that she could not leave her and her children way. She voluntary comes to the emergency department seeking help. She notes that in the past she has seen a counselor currently does not have a counselor in place. In the past she is tried low-dose fluoxetine and found that it exacerbated her OCD tendencies. She currently notes that she is having significant difficulty with sleep and she sometimes forgets to both eat and drink. Related Data Home Medications Medication Instructions Recorded Confirmed albuterol sulfate 90 mcg/actuation 2 puff inhalation Q4H PRN 11/18/19 09/19/23 aerosol inhaler (ProAir HFA) Shortness Of Breath Or Wheezing calcipotriene 0.005 % scalp 1 applic topical PRN PRN psoriasis 09/19/23 09/19/23 solution calcipotriene-betamethasone 0.005 1 applic topical DAILY 09/19/23 09/19/23 %-0.064 % topical ointment fluticasone propionate 50 1 spray intranasal DAILY 09/19/23 09/19/23 mcg/actuation nasal spray,suspension ketoconazole 2 % shampoo See Rx Instructions .Route .COMPLEX 09/19/23 09/19/23 loratadine 10 mg tablet 10 mg PO DAILY 09/19/23 09/19/23 phentermine 15 mg capsule 15 mg PO QAM 09/19/23 09/19/23 Allergies Allergy/AdvReac Type Severity Reaction Status Date / Time naproxen [From NAPROSYN] Allergy Severe anaphylactic Verified 09/18/23 22:10 - PT STATES MOTRIN IS OK olive oil [OLIVE OIL] Allergy Unknown Verified 09/18/23 22:10 Sulfa (Sulfonamide Allergy Unknown Swelling Verified 09/18/23 22:10 Antibiotics) of [SULFA (SULFONAMIDE Lip/Tongue/Throat ANTIBIOTICS)] Review of Systems <Alexia Clancy MD - Last Filed: 09/24/23 00:11> Review of Systems Narrative: Pertinent positive and negative findings as per HPI Patient History <Alexia Clancy MD - Last Filed: 09/24/23 00:11> Medical History (Updated 09/19/23 @ 04:00 by Alexia Clancy MD) Panic attacks Obsessive compulsive disorder Anxiety Surgical History (Updated 09/19/23 @ 03:52 by Alexia Clancy MD) Status post tubal ligation at time of delivery, current hosp Status post repeat low transverse section Social History Smoking Status: Former smoker Smoking Status: Former smoker tobacco type: vaping alcohol intake frequency: holidays/special occasions only Substance Use Type: does not use Exam <Alexia Clancy MD - Last Filed: 09/24/23 00:11> Initial Vital Signs Initial Vital Signs: Vital Signs Temperature 98.4 F 09/18/23 22:10 Pulse Rate 99 H 09/18/23 22:10 Respiratory Rate 18 09/18/23 22:10 Blood Pressure 156/110 H 09/18/23 22:10 Pulse Oximetry 98 09/18/23 22:10 Oxygen Delivery Method Room Air 09/18/23 22:10 General: Fatigued appearing but in no acute distress. Able to give a complete and coherent history. Well-nourished well-developed, BMI of 43 HEENT: Moist mucous membranes, normal sclera with reactive pupils, Respiratory: Lungs are clear to auscultation, no wheezing no rales no rhonchi. Full and symmetrical air movement Cardiac: Regular rate and rhythm no murmurs no bruits Abdomen: Soft, nontender, good bowel tones, no flank pain Skin: Warm and dry, no rashes, no signs of self-harm Neurologic: Grossly neurologically intact with no obvious asymmetries or abnormalities Extremities: No trauma, well perfused Psych: Cooperative, appropriate insight and affect, fluent speech, good eye contact <Abraham Lomas DO - Last Filed: 09/19/23 16:44> Initial Vital Signs Initial Vital Signs: Vital Signs Temperature 98.4 F 09/18/23 22:10 Pulse Rate 99 H 09/18/23 22:10 Respiratory Rate 18 09/18/23 22:10 Blood Pressure 156/110 H 09/18/23 22:10 Pulse Oximetry 98 09/18/23 22:10 Oxygen Delivery Method Room Air 09/18/23 22:10 Course <Alexia Clancy MD - Last Filed: 09/24/23 00:11> Orders Ordered: Discontinued Medications Quetiapine Fumarate (Quetiapine 25 Mg Tablet) 50 mg PO NOW ONE Stop: 09/19/23 02:46 Last Admin: 09/19/23 02:54 Dose: 50 mg Documented By: ALVIN Vital Signs Vital signs: Vital Signs - 8 hr 09/19/23 10:13 09/19/23 15:33 Temperature 97.8 F Pulse Rate 62 75 Respiratory Rate 16 Blood Pressure 105/66 123/76 Pulse Oximetry 98 98 Oxygen Delivery Method Room Air Room Air <Abraham Lomas DO - Last Filed: 09/19/23 16:44> Orders Ordered: Discontinued Medications Quetiapine Fumarate (Quetiapine 25 Mg Tablet) 50 mg PO NOW ONE Stop: 09/19/23 02:46 Last Admin: 09/19/23 02:54 Dose: 50 mg Documented By: ALVIN Vital Signs Vital signs: Vital Signs - 8 hr 09/19/23 10:13 09/19/23 15:33 Temperature 97.8 F Pulse Rate 62 75 Respiratory Rate 16 Blood Pressure 105/66 123/76 Pulse Oximetry 98 98 Oxygen Delivery Method Room Air Room Air MDM - Psych <Alexia Clancy MD - Last Filed: 09/24/23 00:11> Lab Data 09/18/23 22:25 09/18/23 22:25 Labs: Lab Results 09/18/23 09/18/23 09/18/23 Range/Units 22:25 22:30 22:37 WBC 9.2 (4.5-11.0) X10^3/uL RBC 4.65 (4.0-5.2) X10^6/uL Hgb 13.8 (12.0-16.0) g/dL Hct 39.7 (36-46) % MCV 85.6 (80-100) fL MCH 29.7 (26-34) PG MCHC 34.7 (30-36) % RDW 13.1 (11.6-14.8) % Plt Count 273 (150-400) X10^3/uL Neut % (Auto) 67.3 (50-75) % Lymph % (Auto) 25.4 (25-40) % [place] % (Auto) 5.5 (3-14) % Eos % (Auto) 1.1 L (2-4) % Baso % (Auto) 0.7 (0-2) % Neut # (Auto) 6200 (0755-7596) /uL Lymph # (Auto) 2300 (7305-2463) /uL [place] # (Auto) 500 (0-900) /uL Eos # (Auto) 100 (0-450) /uL Baso # (Auto) 100 (0-100) /uL Sodium 139 (137-145) mmol/L Potassium 3.3 L (3.4-5.1) mmol/L Chloride 105 (98-107) mmol/L Carbon Dioxide 28 (22-32) mmol/L BUN 9 (7-17) mg/dL Creatinine 0.76 (0.52-1.04) mg/dL Estimated GFR > 60 (>60) mL/min BUN/Creatinine Ratio 11.8 (6-22) Glucose 134 H (70-100) mg/dL Calcium 9.9 (8.4-10.2) mg/dL Total Bilirubin 0.7 (0.2-1.3) mg/dL AST 32 (14-36) IU/L ALT 30 (<35) IU/L Alkaline Phosphatase 53 (38-126) U/L Total Protein 8.1 (6.3-8.2) g/dL Albumin 4.4 (3.5-5.0) g/dL Globulin 3.7 (1.7-4.1) g/dL Albumin/Globulin Ratio 1.2 (1.0-2.8) TSH 2.26 (0.47-4.68) uIU/mL Free T4 0.99 (0.78-2.19) ng/dL Salicylates < 1.0 (<20) mg/dL U Opiates 300ng/mL cut Negative (Negative) Ur Oxycodone Screen Negative (Negative) Urine Methadone Screen Negative (Negative) Acetaminophen < 10 (10-30) ug/mL Ur Barbiturates Screen Negative (Negative) U Tricyclic Antidepress Negative (Negative) Ur Phencyclidine Scrn Negative (Negative) Ur Amphetamines Screen Negative (Negative) U Methamphetamines Scrn Negative (Negative) Ur MDMA Scrn (Ecstasy) Negative (Negative) U Benzodiazepines Scrn Negative (Negative) Urine Cocaine Screen Negative (Negative) U Marijuana (THC) Screen Negative (Negative) Urine pH Normal (Normal) Urine Specific [place] Normal (Normal) Ethyl Alcohol < 10 ( - 10) mg/dL Ur Creatinine Normal (Normal) SARS-CoV-2 (PCR) Negative (Negative) Point of Care Testing Test Results Negative Urine Dip Bedside Urine Glucose Negative Bedside Urine Bilirubin - Negative Bedside Urine Ketone - Negative Urine Specific [place] 1.010 Bedside Urine Occult Blood - Negative Bedside Urine pH 6.0 Bedside Urine Protein - Negative Bedside Urine Urobilinogen - Negative Bedside Urine Nitrite - Negative Bedside Urine Leukocytes - Negative Esterase MDM Narrative Medical decision making narrative: CC: Spiraling out of control Complicating co-morbidities: History of OCD, anxiety, panic attacks Data collected from: patient, Social determinants of health that may influence the patients condition: 3 children, financial concerns, significant emotional stressors Medical records reviewed: Prior ER notes with no discussion of mental health are reviewed Differential considered: Increased psychosocial stressors, worsening OCD, depression, suicidal ideation Exam documented above, pertinent findings include: Patient is calm appropriate and focused at this point not actively suicidal. Interested in treatment and cooperative with the exam Lab Test results independently reviewed as above. Pertinent findings: CBC is unremarkable Chemistries are notable for a potassium at 3.3. Otherwise unremarkable. Urine is unremarkable Point of care test is negative Urine tox screen shows no abnormalities. Alcohol level is undetectable COVID negative Treatments: 50 mg of Seroquel for sleep. When she awakes in the morning will offer her 20 mEq potassium with breakfast to treat her slightly low potassium Re-evaluations: Discussion: 43-year-old woman with increasing psychosocial stressors finding that her OCD is becoming more and more problematic. She is interested in treatment. Use of low-dose SSRI has exacerbated symptoms in the past. She has not used clomipramine. She has been in counseling before does not currently have access to counseling. With the escalating OCD she is becoming increasingly suicidal and fearful for her own safety. She is interested in an inpatient stay to expedite psychiatric evaluation in consideration of medication management and in hopes of beginning counseling/therapy sooner rather than later. We agreed to try to help her sleep over the course of the evening and begin addressing these issues again in the morning. She was given 50 mg of p.o. Seroquel. We will ask the social welfare research worker to further evaluate her tomorrow and see if we come up with a plan that keeps her safe and provides her the psychiatric and medical care she is requesting.8 <Abraham Lomas, DO - Last Filed: 09/19/23 16:44> Lab Data Labs: Lab Results 09/18/23 09/18/23 09/18/23 Range/Units 22:25 22:30 22:37 WBC 9.2 (4.5-11.0) X10^3/uL RBC 4.65 (4.0-5.2) X10^6/uL Hgb 13.8 (12.0-16.0) g/dL Hct 39.7 (36-46) % MCV 85.6 (80-100) fL MCH 29.7 (26-34) PG MCHC 34.7 (30-36) % RDW 13.1 (11.6-14.8) % Plt Count 273 (150-400) X10^3/uL Neut % (Auto) 67.3 (50-75) % Lymph % (Auto) 25.4 (25-40) % [place] % (Auto) 5.5 (3-14) % Eos % (Auto) 1.1 L (2-4) % Baso % (Auto) 0.7 (0-2) % Neut # (Auto) 6200 (7981-8881) /uL Lymph # (Auto) 2300 (3937-4178) /uL [place] # (Auto) 500 (0-900) /uL Eos # (Auto) 100 (0-450) /uL Baso # (Auto) 100 (0-100) /uL Sodium 139 (137-145) mmol/L Potassium 3.3 L (3.4-5.1) mmol/L Chloride 105 (98-107) mmol/L Carbon Dioxide 28 (22-32) mmol/L BUN 9 (7-17) mg/dL Creatinine 0.76 (0.52-1.04) mg/dL Estimated GFR > 60 (>60) mL/min BUN/Creatinine Ratio 11.8 (6-22) Glucose 134 H (70-100) mg/dL Calcium 9.9 (8.4-10.2) mg/dL Total Bilirubin 0.7 (0.2-1.3) mg/dL AST 32 (14-36) IU/L ALT 30 (<35) IU/L Alkaline Phosphatase 53 (38-126) U/L Total Protein 8.1 (6.3-8.2) g/dL Albumin 4.4 (3.5-5.0) g/dL Globulin 3.7 (1.7-4.1) g/dL Albumin/Globulin Ratio 1.2 (1.0-2.8) TSH 2.26 (0.47-4.68) uIU/mL Free T4 0.99 (0.78-2.19) ng/dL Salicylates < 1.0 (<20) mg/dL U Opiates 300ng/mL cut Negative (Negative) Ur Oxycodone Screen Negative (Negative) Urine Methadone Screen Negative (Negative) Acetaminophen < 10 (10-30) ug/mL Ur Barbiturates Screen Negative (Negative) U Tricyclic Antidepress Negative (Negative) Ur Phencyclidine Scrn Negative (Negative) Ur Amphetamines Screen Negative (Negative) U Methamphetamines Scrn Negative (Negative) Ur MDMA Scrn (Ecstasy) Negative (Negative) U Benzodiazepines Scrn Negative (Negative) Urine Cocaine Screen Negative (Negative) U Marijuana (THC) Screen Negative (Negative) Urine pH Normal (Normal) Urine Specific [place] Normal (Normal) Ethyl Alcohol < 10 ( - 10) mg/dL Ur Creatinine Normal (Normal) SARS-CoV-2 (PCR) Negative (Negative) Point of Care Testing Test Results Negative Urine Dip Bedside Urine Glucose Negative Bedside Urine Bilirubin - Negative Bedside Urine Ketone - Negative Urine Specific [place] 1.010 Bedside Urine Occult Blood - Negative Bedside Urine pH 6.0 Bedside Urine Protein - Negative Bedside Urine Urobilinogen - Negative Bedside Urine Nitrite - Negative Bedside Urine Leukocytes - Negative Esterase MDM Narrative Medical decision making narrative: CC: Spiraling out of control Complicating co-morbidities: History of OCD, anxiety, panic attacks Data collected from: patient, Social determinants of health that may influence the patients condition: 3 children, financial concerns, significant emotional stressors Medical records reviewed: Prior ER notes with no discussion of mental health are reviewed Differential considered: Increased psychosocial stressors, worsening OCD, depression, suicidal ideation Exam documented above, pertinent findings include: Patient is calm appropriate and focused at this point not actively suicidal. Interested in treatment and cooperative with the exam Lab Test results independently reviewed as above. Pertinent findings: CBC is unremarkable Chemistries are notable for a potassium at 3.3. Otherwise unremarkable. Urine is unremarkable Point of care test is negative Urine tox screen shows no abnormalities. Alcohol level is undetectable COVID negative Treatments: 50 mg of Seroquel for sleep. When she awakes in the morning will offer her 20 mEq potassium with breakfast to treat her slightly low potassium Re-evaluations: Discussion: 43-year-old woman with increasing psychosocial stressors finding that her OCD is becoming more and more problematic. She is interested in treatment. Use of low-dose SSRI has exacerbated symptoms in the past. She has not used clomipramine. She has been in counseling before does not currently have access to counseling. With the escalating OCD she is becoming increasingly suicidal and fearful for her own safety. She is interested in an inpatient stay to expedite psychiatric evaluation in consideration of medication management and in hopes of beginning counseling/therapy sooner rather than later. We agreed to try to help her sleep over the course of the evening and begin addressing these issues again in the morning. She was given 50 mg of p.o. Seroquel. We will ask the social welfare research worker to further evaluate her tomorrow and see if we come up with a plan that keeps her safe and provides her the psychiatric and medical care she is requesting.8 Dr lomas: Received turned over. Review patient's history and physical exam. Patient is medically cleared. She is been stable. Patient has been seen by social work. She has been [facility] to [facility]. Patient is stable for transport. We will proceed with inpatient voluntary admission for stabilization. Discharge Plan Departure Patient Disposition: Xfer Psychiatric Hosp Clinical Impression: Suicidal ideation, Anxiety Obsessive compulsive disorder Qualifiers: Obsessive-compulsive disorder type: mixed obsessional thoughts and acts Q ualified Code(s): F42.2 - Mixed obsessional thoughts and acts Prescriptions: No Action albuterol sulfate [ProAir HFA] 90 mcg/actuation HFA aerosol inhaler 2 puff inhalation Q4H PRN (Reason: Shortness Of Breath Or Wheezing) Patient Comments: INHALE 2 PUFFS BY MOUTH EVERY 4 HOURS NEEDED FOR WHEEZING OR S...(REFER TO PRESCRIPTION NOTES). ketoconazole 2 % shampoo See Rx Instructions .ROUTE .COMPLEX Rx Instructions: Lather shampoo onto scalp, leave on for 5 minutes, then rinse. phentermine 15 mg capsule 15 mg PO QAM calcipotriene 0.005 % solution 1 applic topical PRN PRN (Reason: psoriasis) fluticasone propionate 50 mcg/actuation spray,suspension 1 spray intranasal DAILY loratadine 10 mg tablet 10 mg PO DAILY calcipotriene-betamethasone 0.005-0.064 % ointment 1 applic topical DAILY Referrals: Miscellaneous,Doctor, [Primary Care Provider] - ED Sign-out <Alexia Clancy MD - Last Filed: 09/24/23 00:11> Cosign ED Attending [facility]: I was immediately available in the department for consultation throughout this patient's visit. Alexia Clancy MD
[2023-09-19] MEDS: QUETIAPINE 25 MG TABLET 50 MG PO (02:54)
--- NOTE | 2023-09-19 05:53 | PC.NURSE ---
RN called [facility] on 09[facility]18 to check bed availability for voluntary female bed. No beds at that time. [facility] indicated that they would likely have discharges during the day of 09/19 and to follow up then
[2023-09-19 10:13] VITALS: BP 105/66; PULSE 62; RESP 16; TEMP 36.6; O2SAT 98
--- NOTE | 2023-09-19 11:17 | PC.NURSE ---
spoke to Zachary at [facility], faxing paperwork
--- NOTE | 2023-09-19 11:36 | PC.NURSE ---
pt is eating her breakfast and is on her phone this sitter remains at bedside.
--- NOTE | 2023-09-19 12:08 | PC.NURSE ---
pt done eating offered pt a toothbrush and a comb pt declined offer this sitter remains at bedsisd
--- NOTE | 2023-09-19 13:42 | CM.SWNOTE ---
ED BEHAVIORAL GENETICIST Note Patient is 43 y/o female who presents to ED due to concern for SI with plan, anxiety and life stressors. RN contacted [facility] last night and it was reported that they would have beds today. DAY CARE SUPERVISOR calls [facility] and it is reported that they have beds and can review patient, DAY CARE SUPERVISOR faxes clinicals for review. BEHAVIORAL GENETICIST meets with patient briefly and she states she is still seeking inpatient hospitalization due to SI, anxiety and life stressors. Patient states her is aware she is here. BEHAVIORAL GENETICIST receives return call from [facility]. It is reported that patient is accepted for voluntary inpatient hospitalization. Accepting provider is KENYATTA Yung, ETA is 1800, Rn to Rn is Ph. # [phone]. DAY CARE SUPERVISOR sets up transport with [facility] ETA 1700. Plan: patient to transfer to [facility] via EMS this evening for voluntary inpatient hospitalization. SUMANTH LandrySW
--- NOTE | 2023-09-19 15:08 | PC.NURSE ---
*GRATED CHEESE MAKER note* pt is eating lunch and playing on her phone. pt's family visited at 1400 and were updated on pt transport. this sitter remains at the bedside
[2023-09-19 15:33] VITALS: BP 123/76; PULSE 75; O2SAT 98
[2023-09-19 17:05] VITALS: BP 90/60; PULSE 70; TEMP 36.7; O2SAT 100
[2023-09-19 18:16] VITALS: BP 101/57; RESP 14
[2023-09-19 18:17] VITALS: PULSE 72
== END 2023-09-19 18:30 ==
PROVIDERS: Emergency Medicine; Emergency Provider Emergency Medicine
DX: R45.851 Suicidal ideations (principal); F41.9 Anxiety disorder, unspecified; F42.2 Mixed obsessional thoughts and acts; Z20.822 Contact with and (suspected) exposure to COVID-19
CPT/HCPCS: 36415; 80053; 80305; 80320; 80329; 81003; 81025; 84439; 84443; 85025; 87635; 99284; C9803; G0480

== ENCOUNTER 2024-01-18 09:14 | Emergency (ER) | payer OTHER, MEDICAID, SELFPAY ==
[2024-01-18 09:25] VITALS: BP 135/78; PULSE 67; RESP 15; TEMP 37.1; O2SAT 98; BMI 42.9
[2024-01-18 10:19] LABS: Monotest Negative (Negative)
[2024-01-18 11:09] LABS: Strep Grp A by PCR Rapid Negative (Negative)
--- NOTE | 2024-01-18 11:32 | ED.URI ---
HPI - URI/Sore Throat <KENYATTA Hayward - Last Filed: 01/18/24 11:48> General Chief Complaint: Upper Respiratory Symptoms Stated Complaint: sore throat pain x2wks Time Seen by Provider: 01/18/24 09:30 Source: patient Mode of arrival: Ambulatory History of Present Illness HPI Narrative: 43-year-old female, former smoker, presents to the emergency department with sore throat x2 weeks. Home treatment has included Tylenol and ibuprofen with minimal relief. Patient typically takes a allergy pill and Flonase nasal spray. Related Data Home Medications Medication Instructions Recorded Confirmed albuterol sulfate 90 mcg/actuation 2 puff inhalation Q4H PRN 11/18/19 09/19/23 aerosol inhaler (ProAir HFA) Shortness Of Breath Or Wheezing calcipotriene 0.005 % scalp 1 applic topical PRN PRN psoriasis 09/19/23 09/19/23 solution calcipotriene-betamethasone 0.005 1 applic topical DAILY 09/19/23 09/19/23 %-0.064 % topical ointment fluticasone propionate 50 1 spray intranasal DAILY 09/19/23 09/19/23 mcg/actuation nasal spray,suspension ketoconazole 2 % shampoo See Rx Instructions .Route .COMPLEX 09/19/23 09/19/23 loratadine 10 mg tablet 10 mg PO DAILY 09/19/23 09/19/23 phentermine 15 mg capsule 15 mg PO QAM 09/19/23 09/19/23 Allergies Allergy/AdvReac Type Severity Reaction Status Date / Time naproxen [From NAPROSYN] Allergy Severe anaphylactic Verified 01/18/24 09:25 - PT STATES MOTRIN IS OK olive oil [OLIVE OIL] Allergy Unknown Verified 01/18/24 09:25 Sulfa (Sulfonamide Allergy Unknown Swelling Verified 01/18/24 09:25 Antibiotics) of [SULFA (SULFONAMIDE Lip/Tongue/Throat ANTIBIOTICS)] Review of Systems <KENYATTA Hayward - Last Filed: 01/18/24 11:48> Review of Systems Narrative: Narrative: See HPI. GENERAL: Denies chills, fatigue, fever, sweats. HEENT: Denies sinus pain, dizziness. Endorses sore throat, difficulty swallowing and left ear fullness. RESPIRATORY: Denies dyspnea, cough, wheezing, sputum. CARDIOVASCULAR: Denies chest pain, palpitations, edema. GASTROINTESTINAL: Denies nausea, vomiting, abdominal pain, diarrhea, constipation. : Denies dysuria, frequency, incontinence, hematuria, urinary retention, flank pain. MSK: Denies weakness, joint pain, or bony pain. SKIN: Denies rash, skin lesions, or pruritis. NEUROLOGIC: Denies weakness, dizziness, headache, numbness, confusion. PSYCHIATRIC: No concerning psychosocial issues. Patient History <KENYATTA Hayward - Last Filed: 01/18/24 11:48> Medical History Panic attacks Obsessive compulsive disorder Anxiety Surgical History Status post tubal ligation at time of delivery, current hosp Status post repeat low transverse section Social History Smoking Status: Former smoker Smoking Status: Former smoker tobacco type: vaping alcohol intake frequency: holidays/special occasions only Substance Use Type: does not use Exam <KENYATTA Hayward - Last Filed: 01/18/24 11:48> Narrative Exam Narrative: Exam Narrative: GENERAL: This is a well-nourished, well-developed patient, in no acute distress. HEAD: Atraumatic. Normocephalic. EYES: Pupils equal round and reactive. Extraocular motions intact. No scleral icterus, injection or drainage. ENT: Nose without bleeding, purulent drainage. Throat with erythema, tonsillar hypertrophy or exudate. Uvula midline. Airway patent. Left ear canal impacted with cerumen, right TM and canals clear. No sinus tenderness. NECK: Trachea midline. No JVD or lymphadenopathy. Nontender. CARDIOVASCULAR: Regular rate and rhythm without murmurs, peripheral pulses intact, cap refill <2 sec. RESPIRATORY: Breath sounds equal and clear bilaterally. No wheezes, rales, or rhonchi. No cough. No increased respiratory effort. No accessory muscle use. MSK: Moves all extremities. Normal range of motion, no clubbing or edema. Neurovascularly intact. NEURO: A&O x 3. SKIN: Warm, dry, no rashes or lesions noted. Initial Vital Signs Initial Vital Signs: Vital Signs Temperature 98.7 F 01/18/24 09:25 Pulse Rate 67 01/18/24 09:25 Respiratory Rate 15 01/18/24 09:25 Blood Pressure 135/78 01/18/24 09:25 Pulse Oximetry 98 01/18/24 09:25 Oxygen Delivery Method Room Air 01/18/24 09:25 Reviewed <Abraham Lomas DO - Last Filed: 01/18/24 14:04> Initial Vital Signs Initial Vital Signs: Vital Signs Temperature 98.7 F 01/18/24 09:25 Pulse Rate 67 01/18/24 09:25 Respiratory Rate 15 01/18/24 09:25 Blood Pressure 135/78 01/18/24 09:25 Pulse Oximetry 98 01/18/24 09:25 Oxygen Delivery Method Room Air 01/18/24 09:25 Course <KENYATTA Hayward - Last Filed: 01/18/24 11:48> Orders Ordered: ED Orders 01/18/24 09:35 Strep Grp A by PCR Rapid Stat Throat Culture Stat 01/18/24 10:00 Monotest Stat Discontinued Medications Dexamethasone (Dexamethasone 10 Mg/Ml Vial) 10 mg PO NOW ONE Stop: 01/18/24 11:30 Last Admin: 01/18/24 11:39 Dose: 10 mg Documented By: MARY Vital Signs Vital signs: Vital Signs - 8 hr 01/18/24 09:25 01/18/24 11:48 Temperature 98.7 F Pulse Rate 67 74 Respiratory Rate 15 14 Blood Pressure 135/78 148/84 H Pulse Oximetry 98 98 Oxygen Delivery Method Room Air Room Air <Abraham Lomas DO - Last Filed: 01/18/24 14:04> Orders Ordered: ED Orders 01/18/24 09:35 Strep Grp A by PCR Rapid Stat Throat Culture Stat 01/18/24 10:00 Monotest Stat Discontinued Medications Dexamethasone (Dexamethasone 10 Mg/Ml Vial) 10 mg PO NOW ONE Stop: 01/18/24 11:30 Last Admin: 01/18/24 11:39 Dose: 10 mg Documented By: MARY Vital Signs Vital signs: Vital Signs - 8 hr 01/18/24 09:25 01/18/24 11:48 Temperature 98.7 F Pulse Rate 67 74 Respiratory Rate 15 14 Blood Pressure 135/78 148/84 H Pulse Oximetry 98 98 Oxygen Delivery Method Room Air Room Air MDM - URI/Sore Throat <KENYATTA Hayward - Last Filed: 01/18/24 11:48> Differential Diagnosis Differential diagnosis: Likely upper respiratory infection, otitis media, viral infection and pharyngitis Lab Data Labs: Lab Results 01/18/24 01/18/24 Range/Units 09:35 10:00 Monoscreen Negative (Negative) Group A Strep (PCR) Negative (Negative) MDM Narrative Medical decision making narrative: 43-year-old female with sore throat. Assessment was encouraging and point of care rapid strep and mono test were both negative. Informed patient that we would send off a sample for culture, contact her with the results, and treat if indicated. Recommended supportive care that included rest, increased oral hydration, gargling with warm salt water in the morning and evening, continued use of daily Claritin or Zyrtec and Flonase nasal spray. Recommended a Debrox earwax removal solution and possibly nurse visit with family doctor for lavage. Patient verbalized understanding and was agreeable with course of action. <Abraham Lomas DO - Last Filed: 01/18/24 14:04> Lab Data Labs: Lab Results 01/18/24 01/18/24 Range/Units 09:35 10:00 Monoscreen Negative (Negative) Group A Strep (PCR) Negative (Negative) Discharge Plan Departure Patient Disposition: Home Clinical Impression: Pharyngitis Qualifiers: Pharyngitis/tonsillitis etiology: unspecified etiology Qualified Code(s): J02.9 - Acute pharyngitis, unspecified Instructions: DI for Viral Pharyngitis Activity Restrictions/Additional Instructions: *You have been diagnosed with pharyngitis. It was a pleasure meeting you today and I am sorry you are experiencing the sore throat. Your rapid strep and test were both negative. We will send off throat sample for culture, contact you with the results, and treat if necessary. We will give you a 1 time dose of steroids to reduce the swelling and improve her pain. As we discussed, I recommend gargling warm salt water in the morning and possibly in the evening as well. Flonase nasal spray before bedtime as well. Please follow-up with your family doctor as needed or return to the emergency department. *What to do: *Please continue to take your regular medications as directed. [ ] New medication prescriptions sent to your pharmacy: [ ] [ ] New medication written as a paper prescription [x ] No new medications given *Please follow up with your primary care provider in 2-3 days, call for an appointment. Let them know you were seen in the Emergency Department and that we ask that you be seen in follow up. We will electronically transmit a record of today's note if your PCP is in our system *If you do not have a primary care provider please contact the [facility] Resource line at [phone]. They will ask some questions about your medical history and help get you set up with a doctor in the community. ? Return to ER if you should have any new, worsening or concerning symptoms, such as worsening pain, severe headache, confusion, chest pain, difficulty breathing, fever greater than 101 F, shaking chills, persistent vomiting to the point that you cannot drink fluids, or other new or worsening symptoms. Prescriptions: No Action albuterol sulfate [ProAir HFA] 90 mcg/actuation HFA aerosol inhaler 2 puff inhalation Q4H PRN (Reason: Shortness Of Breath Or Wheezing) Patient Comments: INHALE 2 PUFFS BY MOUTH EVERY 4 HOURS NEEDED FOR WHEEZING OR S...(REFER TO PRESCRIPTION NOTES). ketoconazole 2 % shampoo See Rx Instructions .ROUTE .COMPLEX Rx Instructions: Lather shampoo onto scalp, leave on for 5 minutes, then rinse. phentermine 15 mg capsule 15 mg PO QAM calcipotriene 0.005 % solution 1 applic topical PRN PRN (Reason: psoriasis) fluticasone propionate 50 mcg/actuation spray,suspension 1 spray intranasal DAILY loratadine 10 mg tablet 10 mg PO DAILY calcipotriene-betamethasone 0.005-0.064 % ointment 1 applic topical DAILY Referrals: Miscellaneous,Doctor, MD [Primary Care Provider] - Stand Alone Forms: Patient Portal/API ED Sign-out <Abraham Lomas, DO - Last Filed: 01/18/24 14:04> Cosign ED Attending Cosignature Attestation: Dr Lomas Co-Sign Statement: I was available for consultation during this patient's emergency department visit. This chart is signed by myself for administrative purposes only. I did not have direct contact with this patient during this visit. They were seen independently by the APC.
[2024-01-18] MEDS: DEXAMETHASONE 10 MG/ML VIAL PO (11:39)
[2024-01-18 11:48] VITALS: BP 148/84; PULSE 74; RESP 14; O2SAT 98
== END 2024-01-18 11:50 | disposition home or self-care (01) ==
PROVIDERS: Emergency Medicine; Emergency Provider Registered Nurse
DX: J02.9 Acute pharyngitis, unspecified (principal); Z87.891 Personal history of nicotine dependence
CPT/HCPCS: 86318; 87070; 87651; 99283; J1100

== ENCOUNTER 2024-07-07 10:50 | Emergency (ER) | payer OTHER, MEDICAID, SELFPAY ==
[2024-07-07 11:22] VITALS: BP 116/71; PULSE 73; RESP 16; TEMP 36.4; O2SAT 98; BMI 41.1
[2024-07-07 11:49] LABS: Strep Grp A by PCR Rapid Negative (Negative)
--- NOTE | 2024-07-07 12:48 | ED.URI ---
HPI - URI/Sore Throat <Kwame Mclean PA-C - Last Filed: 07/07/24 12:59> General Chief Complaint: Upper Respiratory Symptoms Stated Complaint: sore throat Time Seen by Provider: 07/07/24 12:43 Source: patient Mode of arrival: Family Vehicle History of Present Illness HPI Narrative: This patient is a 44-year-old female that presents today for a sore throat and left ear pain. This has been ongoing for approximately 3 days. She is concerned about, ?strep throat?. The patient states since she has had multiple ill contacts at home with her children which have already improved without any medical intervention. The patient denies abdominal pain, chest pain, shortness of breath, night sweats, fever, chills, neck pain, photophobia, recent travel or rash. No treatments have been tried for this. The patient also denies nausea or vomiting as well as diarrhea Related Data Home Medications Medication Instructions Recorded Confirmed albuterol sulfate 90 mcg/actuation 2 puff inhalation Q4H PRN 11/18/19 09/19/23 aerosol inhaler (ProAir HFA) Shortness Of Breath Or Wheezing calcipotriene 0.005 % scalp 1 applic topical PRN PRN psoriasis 09/19/23 09/19/23 solution calcipotriene-betamethasone 0.005 1 applic topical DAILY 09/19/23 09/19/23 %-0.064 % topical ointment fluticasone propionate 50 1 spray intranasal DAILY 09/19/23 09/19/23 mcg/actuation nasal spray,suspension ketoconazole 2 % shampoo See Rx Instructions .Route .COMPLEX 09/19/23 09/19/23 loratadine 10 mg tablet 10 mg PO DAILY 09/19/23 09/19/23 phentermine 15 mg capsule 15 mg PO QAM 09/19/23 09/19/23 Previous Rx's Medication Instructions Recorded lidocaine HCl 2 % mucosal solution 5 ml PO QID PRN throat pain #100 mL 07/07/24 (Lidocaine Viscous) prednisone 20 mg tablet 40 mg (2 x 20 mg) PO DAILY #10 tabs 07/07/24 Allergies Allergy/AdvReac Type Severity Reaction Status Date / Time naproxen [From NAPROSYN] Allergy Severe anaphylactic Verified 07/07/24 11:26 - PT STATES MOTRIN IS OK olive oil [OLIVE OIL] Allergy Unknown Verified 07/07/24 11:26 Sulfa (Sulfonamide Allergy Unknown Swelling Verified 07/07/24 11:26 Antibiotics) of [SULFA (SULFONAMIDE Lip/Tongue/Throat ANTIBIOTICS)] Review of Systems <Kwame Mclean PA-C - Last Filed: 07/07/24 12:59> Review of Systems Narrative: General: See HPI GI: See HPI All other review of systems have been reviewed and are ultimately negative unless otherwise stated in the HPI Patient History <Kwame Mclena PA-C - Last Filed: 07/07/24 12:59> Medical History Panic attacks Obsessive compulsive disorder Anxiety Surgical History Status post tubal ligation at time of delivery, current hosp Status post repeat low transverse section Social History Smoking Status: Former smoker Smoking Status: Former smoker tobacco type: vaping alcohol intake frequency: holidays/special occasions only Substance Use Type: does not use Exam <Kwame Mclean PA-C - Last Filed: 07/07/24 12:59> Initial Vital Signs Initial Vital Signs: Vital Signs Temperature 97.5 F L 07/07/24 11:22 Pulse Rate 73 07/07/24 11:22 Respiratory Rate 16 07/07/24 11:22 Blood Pressure 116/71 07/07/24 11:22 Pulse Oximetry 98 07/07/24 11:22 Oxygen Delivery Method Room Air 07/07/24 11:22 Const General: cooperative, healthy appearing, comfortable, well developed, well groomed and acute distress [facility] Head: normal to inspection, normocephalic and atraumatic Ears: hearing grossly normal bilaterally, external ears normal, TM's normal bilaterally, EAC's normal, mastoids normal and no periauricular adenopathy Eyes General: Yes appearance normal, both eyes and all related structures Neck Neck: normal visual inspection, full ROM, no meningeal signs, trachea midline and supple Resp Effort & Inspection: normal respiratory effort and able to speak in complete sentences Auscultation: clear to auscultation bilaterally Cardio Rate: regular rate Rhythm: regular rhythm Heart Sounds: S1 normal and S2 normal Back/Spine/Pelvis Back: normal to inspection Skin General: no rashes or lesions noted, elasticity normal and turgor normal Neuro General: patient alert, patient awake, patient oriented x3, gait normal, moves all extremities and CN's II-XI intact bilaterally Extrem General: normal to inspection, full ROM, capillary refill normal, normal exam except as noted, no joint enlargement, no clubbing, cyanosis or edema and no pedal edema Psych Appearance: grossly normal and well kempt <Fely Polanco DO - Last Filed: 07/08/24 07:29> Initial Vital Signs Initial Vital Signs: Vital Signs Temperature 97.5 F L 07/07/24 11:22 Pulse Rate 73 07/07/24 11:22 Respiratory Rate 16 07/07/24 11:22 Blood Pressure 116/71 07/07/24 11:22 Pulse Oximetry 98 07/07/24 11:22 Oxygen Delivery Method Room Air 07/07/24 11:22 Course <Kwame Mclean PA-C - Last Filed: 07/07/24 12:59> Orders Ordered: ED Orders 07/07/24 11:28 Strep Grp A by PCR Rapid Stat Strep Screen Stat 07/07/24 12:43 Respiratory Panel (Film Array) Stat Vital Signs Vital signs: Vital Signs - 8 hr 07/07/24 11:22 Temperature 97.5 F L Pulse Rate 73 Respiratory Rate 16 Blood Pressure 116/71 Pulse Oximetry 98 Oxygen Delivery Method Room Air <DO Abhijit Mace Last Filed: 07/08/24 07:29> Orders Ordered: ED Orders 07/07/24 11:28 Strep Grp A by PCR Rapid Stat Strep Screen Stat 07/07/24 12:43 Respiratory Panel (Film Array) Stat Vital Signs Vital signs: Vital Signs - 8 hr 07/07/24 11:22 Temperature 97.5 F L Pulse Rate 73 Respiratory Rate 16 Blood Pressure 116/71 Pulse Oximetry 98 Oxygen Delivery Method Room Air MDM - URI/Sore Throat <ELADIA Ulloa Last Filed: 07/07/24 12:59> Differential Diagnosis Differential diagnosis: Likely upper respiratory infection, otitis media, sinusitis, viral infection, bronchitis, influenza and pharyngitis Medical Records Attestation: I reviewed the patient's medical records. Lab Data Attestation: I reviewed the patient's lab results. Labs: Lab Results 07/07/24 07/07/24 Range/Units 11:28 12:49 Chlamy pneumoniae PCR Not detected (Not Detect) Adenovirus (PCR) Not detected (Not Detect) B. pertussis DNA (PCR) Not detected (Not Detect) B.parapertussis DNA PCR Not detected (Not Detecte) Coronavirus OC43 (PCR) Not detected (Not Detect) Coronavirus HKU1 (PCR) Not detected (Not Detect) Coronavirus 229E (PCR) Not detected (Not Detect) SARS-CoV-2 (PCR) Not detected (Not Detecte) Coronavirus NL63 (PCR) Not detected (Not Detect) Human Metapneumovir PCR Not detected (Not Detect) Influenza Type A (PCR) Not detected (Not Detect) Influenza Type B (PCR) Not detected (Not Detect) M. pneumoniae (PCR) Not detected (Not Detect) Parainfluenza 1 (PCR) Not detected (Not Detect) Parainfluenza 2 (PCR) Not detected (Not Detect) Parainfluenza 3 (PCR) Not detected (Not Detect) Parainfluenza 4 (PCR) Not detected (Not Detect) RSV (PCR) Not detected (Not Detect) Entero/Rhino (PCR) Not detected (Not Detect) Group A Strep (PCR) Negative (Negative) [facility] Narrative Medical decision making narrative: This patient is a 44-year-old female that presents today for a sore throat for the past 3 days and left ear discomfort that started this morning. She is tolerating clear fluids in her normal diet. I do not believe this is strep pharyngitis since she has a negative strep screen. There was no evidence of a peritonsillar abscess or retropharyngeal abscess on exam. I do not believe she is septic. This is likely viral in nature. A respiratory swab screen is pending. I will start the patient on viscous lidocaine and prednisone. She understands the treatment plan. There were no additional questions at the time of discharge and she will follow up as requested. <Fely Polanco DO - Last Filed: 07/08/24 07:29> Lab Data Labs: Lab Results 07/07/24 07/07/24 Range/Units 11:28 12:49 Chlamy pneumoniae PCR Not detected (Not Detect) Adenovirus (PCR) Not detected (Not Detect) B. pertussis DNA (PCR) Not detected (Not Detect) B.parapertussis DNA PCR Not detected (Not Detecte) Coronavirus OC43 (PCR) Not detected (Not Detect) Coronavirus HKU1 (PCR) Not detected (Not Detect) Coronavirus 229E (PCR) Not detected (Not Detect) SARS-CoV-2 (PCR) Not detected (Not Detecte) Coronavirus NL63 (PCR) Not detected (Not Detect) Human Metapneumovir PCR Not detected (Not Detect) Influenza Type A (PCR) Not detected (Not Detect) Influenza Type B (PCR) Not detected (Not Detect) M. pneumoniae (PCR) Not detected (Not Detect) Parainfluenza 1 (PCR) Not detected (Not Detect) Parainfluenza 2 (PCR) Not detected (Not Detect) Parainfluenza 3 (PCR) Not detected (Not Detect) Parainfluenza 4 (PCR) Not detected (Not Detect) RSV (PCR) Not detected (Not Detect) Entero/Rhino (PCR) Not detected (Not Detect) Group A Strep (PCR) Negative (Negative) Discharge Plan Departure Patient Disposition: Home Clinical Impression: Upper respiratory infection Qualifiers: URI type: unspecified URI Qualified Code(s): J06.9 - Acute upper respiratory infection, unspecified Pharyngitis Qualifiers: Pharyngitis/tonsillitis etiology: unspecified etiology Qualified Code(s): J02.9 - Acute pharyngitis, unspecified Instructions: Common Cold Activity Restrictions/Additional Instructions: Start the medications today as prescribed Your swab results should be available in approximately 2 hours Follow up with your PCP this week as a recheck Increase clear fluid intake and rest the remainder of the weekend Consider adding Tylenol every 8 hours as needed for fever/pain control Return here immediately if worse or for any new, emergent concerns Prescriptions: New prednisone 20 mg tablet 40 mg PO DAILY Qty: 10 0RF lidocaine HCl [Lidocaine Viscous] 2 % solution 5 ml PO QID PRN (Reason: throat pain) Qty: 100 0RF No Action albuterol sulfate [ProAir HFA] 90 mcg/actuation HFA aerosol inhaler 2 puff inhalation Q4H PRN (Reason: Shortness Of Breath Or Wheezing) Patient Comments: INHALE 2 PUFFS BY MOUTH EVERY 4 HOURS NEEDED FOR WHEEZING OR S...(REFER TO PRESCRIPTION NOTES). ketoconazole 2 % shampoo See Rx Instructions .ROUTE .COMPLEX Rx Instructions: Lather shampoo onto scalp, leave on for 5 minutes, then rinse. phentermine 15 mg capsule 15 mg PO QAM calcipotriene 0.005 % solution 1 applic topical PRN PRN (Reason: psoriasis) fluticasone propionate 50 mcg/actuation spray,suspension 1 spray intranasal DAILY loratadine 10 mg tablet 10 mg PO DAILY calcipotriene-betamethasone 0.005-0.064 % ointment 1 applic topical DAILY Referrals: Miscellaneous,Doctor, MD [Primary Care Provider] - Stand Alone Forms: Patient Portal/API, Work Release Note ED Sign-out <Fely Polanco DO - Last Filed: 07/08/24 07:29> Cosign ED Attending Somature Attestation: I was available for consultation.
--- NOTE | 2024-07-07 13:02 | PC.NURSE ---
Pt states she has been having ongoing sore throat and cough. pt states she had something similar happen in the past and her test results were negative. Pt states tyelonal and ibuprofen have not helped her symptoms. lung sounds clear in all hanson. 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
[2024-07-07 13:03] VITALS: PULSE 71; RESP 16; TEMP 36.8; O2SAT 99
--- NOTE | 2024-07-07 13:04 | PC.NURSE ---
Pt informed we will call with any positive results and she can also look on her portal for the results.
[2024-07-07 13:45] LABS: Adenovirus Not Detected (Not Detect); B. parapertussis Not Detected (Not Detecte); Bordetella pertussis Not Detected (Not Detect); Chlamydophila pneumoniae Not Detected (Not Detect); Coronavirus 229E Not Detected (Not Detect); Coronavirus HKU1 Not Detected (Not Detect); Coronavirus NL 63 Not Detected (Not Detect); Coronavirus OC43 Not Detected (Not Detect); Human Metapneumovirus Not Detected (Not Detect); Human Rhinovirus/Enterovirus Not Detected (Not Detect); Influenza A Not Detected (Not Detect); Influenza B Not Detected (Not Detect); Mycoplasma pneumoniae Not Detected (Not Detect); Parainfluenza Virus 1 Not Detected (Not Detect); Parainfluenza Virus 2 Not Detected (Not Detect); Parainfluenza Virus 3 Not Detected (Not Detect); Parainfluenza Virus 4 Not Detected (Not Detect); Respiratory Syncytial Virus Not Detected (Not Detect); SARS- CoV-2 Not Detected (Not Detecte)
== END 2024-07-07 13:04 | disposition home or self-care (01) ==
PROVIDERS: Emergency Provider Physician Assistant
DX: J06.9 Acute upper respiratory infection, unspecified (principal); J02.9 Acute pharyngitis, unspecified; Z11.52 Encounter for screening for COVID-19
CPT/HCPCS: 87081; 87147; 87633; 87651; 99281; 99282

== ENCOUNTER 2025-01-03 13:04 | Emergency (ER) | payer OTHER, SELFPAY ==
[2025-01-03 13:14] VITALS: BP 148/74; PULSE 69; RESP 20; TEMP 36.5; O2SAT 100; BMI 37.8
--- NOTE | 2025-01-03 13:38 | DI.CT.S_ITS ---
PROCEDURE: CT CERVICAL SPINE WO CON INDICATIONS: neck pain w/ radiation down right arm, no trauma TECHNIQUE: Noncontrast 3 mm thick sections acquired from the skull base to the T4 level. Sagittal and coronal reformats were then constructed. For radiation dose reduction, the following was used: automated exposure control, adjustment of mA and/or kV according to patient size. COMPARISON: None. FINDINGS: Image quality: Excellent. Bones: No fractures or dislocations. Visualized superior ribs are intact. Congenital C5-6 partial non segmentation includes the anterior and posterior elements. Associated disc space narrowing and anterior osteophyte C6-7. No significant osseous central stenosis throughout the exam Soft tissues: Prevertebral soft tissues are normal in thickness. No paravertebral hematomas. No apical pneumothoraces. IMPRESSION: No fracture or traumatic malalignment. 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 Approved by: Librado Mcdermott M.D. on 01/03/2025 at 13:11
[2025-01-03] MEDS: ACETAMINOPHEN 325 MG TABLET 975 MG PO (14:44)
[2025-01-03] MEDS: predniSONE 20 MG TABLET 60 MG PO (14:45)
[2025-01-03] MEDS: IBUPROFEN 400 MG TABLET 800 MG PO (14:45)
== END 2025-01-03 18:34 | disposition left against medical advice (07) ==
PROVIDERS: Emergency Provider Emergency Medicine
DX: M54.2 Cervicalgia (principal); M79.641 Pain in right hand; M25.521 Pain in right elbow
CPT/HCPCS: 72125; 99283